=== PATIENT | male | born 1940 | race Caucasian/White ===

== ENCOUNTER 2017-09-30 19:19 | Inpatient (IN) | payer MEDICAID, MEDICARE ==
[2017-09-30] VITALS (14 sets, daily range): BP systolic 70–117; BP diastolic 32–59
[~2017-09-30] VITALS: Ht 172.7 cm; Wt 138.3 kg
[~2017-09-30 19:19] MED LIST: ALPR.5T; GBPN600T; MIRAPEX 0.5 MG; NEURONTIN; TRM50TRX; TRZ50T
[2017-09-30] MEDS ORDERED: NS IV 1000 ML 1,000 ML ONE ×2 (20:57→22:15)
[2017-09-30 21:36] LABS: ABG BASE EXCESS -7.9 MMOL/L (-2.5-2.5); ABG OXYGEN SATURATION 95 % (94-100); ABG PCO2 41 MMHG (35-45); ABG PO2 90 MMHG (79-93)
[2017-09-30 21:39] LABS: ABG PH 7.26 (7.37-7.43); ALLENS TEST POSITIVE; INSPIRED O2 40% BIPAP; PATIENT TEMP 98.5; VENTILATOR NO
[2017-09-30 21:54] LABS: BILIRUBIN,URINE NEGATIVE (NEGATIVE); CLARITY,URINE CLEAR; COLOR,URINE YELLOW; GLUCOSE, URINE (UA) NEGATIVE (NEGATIVE); KETONES,URINE NEGATIVE (NEGATIVE); LEUKOCYTE ESTERASE ,URINE NEGATIVE (NEGATIVE); NITRITE,URINE NEGATIVE (NEGATIVE); PH,URINE 5 (5-9); PROTEIN,URINE 2+ (NEGATIVE); UROBILINOGEN,URINE NORMAL (NORMAL)
[2017-09-30 22:06] LABS: AMORPHOUS SEDIMENT,UR MOD AMOR URATES /LPF; BACTERIA,URINE NEGATIVE /HPF; WBC,URINE RARE /HPF
[2017-09-30] MEDS ORDERED: NOREPINEPHRINE 4 MG/4 ML (LEVOPHED) AMP IV ONE (22:19)
[2017-09-30] MEDS ORDERED: NS (IVPB) 250 ML ONE (22:19)
[2017-09-30] MEDS ORDERED: NS IV 1000 ML 1,000 ML IV ONE ×2 (23:00→23:15)
[2017-09-30] MEDS ORDERED: NOREPINEPHRINE 4 MG/NS 250 ML DRIP IV SCH ×2 (23:00)
--- NOTE | 2017-09-30 23:17 | Operative Report ---
Operative Report Date of Procedure/Surgery Sep 30, 2017 Surgeon (s) ARVIN DOBSON MD [facility] Manager (s): N/A Post-Operative Diagnosis Pneumonia, sepsis and hypotension Procedure Performed Ultrasound localization of right internal jugular vein It central venous catheter placement Description of Procedure Estimated blood loss (mL): Minimal Specimen(s) collected/removed none Description of the Procedure indication for the procedure: This gentleman, a resident of the [facility], has been admitted with sepsis possibly secondary to pneumonic infiltrates and hypotension. To facilitate vasopressor therapy and invasive hemodynamic monitoring, I was asked to place a central venous catheter. Description of the procedure: He was placed in Trendelenburg position and the right side of his neck prepared and draped in the usual sterile manner. Internal jugular vein was localized using a 10 MHz ultrasound probe and a floppy guidewire introduced into the heart. Subcutaneous tract was gently dilated using a silastic sheath and a 16 cm long, 7.5 Macedonian central venous catheter advanced using Seldinger technique. All the channels were aspirated and flushed with heparinized saline. The catheter itself was secured using a silk suture and a sterile dressing applied. He tolerated the procedure reasonably well. Findings of the Procedure see operative report Allergies and Home Medications Allergies Coded Allergies: Latex (Verified Allergy, Unknown, 09/01/07) Home Medications Alprazolam 0.5 Mg Tablet, (Reported) Gabapentin 600 Mg Tablet, (Reported) Tramadol Hcl 50 Mg Tab, (Reported) Trazodone Hcl 50 Mg Tablet, (Reported) [Mirapex 0.5MG] , (Reported) [Neurontin] , (Reported) ARVIN DOBSON MD Sep 30, 2017 11:17 pm
[2017-09-30] MEDS: PIPERACILLIN SODIUM/TAZOBACTAM 4.5 GM in NS (IVPB) 100 ML IV SCH (23:52)
[2017-09-30 23:58] LABS: ABG BASE EXCESS -9.7 MMOL/L (-2.5-2.5); ABG OXYGEN SATURATION 97 % (94-100); ABG PCO2 48 MMHG (35-45); ABG PO2 162 MMHG (79-93); ABG TCO2 18.7 MMOL/L (21.0-31.0)
[2017-09-30 23:59] LABS: ALLENS TEST YES-POS; INSPIRED O2 65
[2017-10-01] VITALS (51 sets, daily range): BP systolic 77–136; BP diastolic 48–84
[2017-10-01] LABS: PATIENT TEMP 98.4; VENTILATOR NO
[2017-10-01 00:01] LABS: ABG PH 7.18 (7.37-7.43)
[2017-10-01] MEDS ORDERED: LORazepam INJ 2 MG/ML (ATIVAN) VIAL ONE (00:51)
[2017-10-01] MEDS ORDERED: NS IV 1000 ML 1,000 ML IV SCH (01:00)
[2017-10-01] MEDS ORDERED: LORazepam INJ 2 MG/ML (ATIVAN) VIAL IV PRN (01:15)
[2017-10-01] MEDS ORDERED: fentaNYL INJECTION 100 MCG/2 ML AMP IV PRN (01:15)
[2017-10-01 01:28] LABS: ABG BASE EXCESS -10.7 MMOL/L (-2.5-2.5); ABG OXYGEN SATURATION 94 % (94-100); ABG PCO2 35 MMHG (35-45); ABG PO2 80 MMHG (79-93); ABG TCO2 16.1 MMOL/L (21.0-31.0)
[2017-10-01 01:30] LABS: ALLENS TEST YES-POS; INSPIRED O2 60; PATIENT TEMP 98.3; VENTILATOR YES
[2017-10-01 01:32] LABS: ABG PH 7.26 (7.37-7.43)
[2017-10-01 01:46] LABS: BUN/CREATININE RATIO 16; CALCIUM 7.2 MG/DL (8.5-10.1); CARBON DIOXIDE 14 MMOL/L (21-32); CHLORIDE 105 MMOL/L (98-107); CREATININE SERUM 3.41 MG/DL (0.60-1.30); GFR ESTIMATED 18; GLUCOSE 202 MG/DL (70-105); POTASSIUM 3.2 MMOL/L (3.6-5.0); SODIUM 136 MMOL/L (135-145)
[2017-10-01] MEDS ORDERED: RX-OSELTAMIVIR 6 MG/ML (TAMIFLU) BOT PO ONE (02:32)
[2017-10-01] MEDS ORDERED: D5W 1000 ML IV SOLUTION 1,000 ML ONE (02:34)
[2017-10-01] MEDS ORDERED: SODIUM BICARB 8.4% 50 MEQ/50 ML (ABBOTT) SYR ONE (02:34)
[2017-10-01] MEDS: FAMOTIDINE 20MG/2ML IV (PEPCID) IV SCH ×2 (03:10→09:09)
[2017-10-01] MEDS: OSELTAMIVIR 6 MG/ML (TAMIFLU) 60 ML BOT GT SCH ×3 (03:11→20:26)
[2017-10-01] MEDS: SODIUM BICARBONATE 8.4% VIAL 150 MEQ in D5W 1000 ML IV SOLUTION 1,000 ML IV SCH ×5 (03:11→20:26)
[2017-10-01 04:46] LABS: ABG OXYGEN SATURATION 97 % (94-100); ABG PCO2 28 MMHG (35-45); ABG PO2 110 MMHG (79-93); ABG TCO2 15.5 MMOL/L (21.0-31.0)
[2017-10-01 04:47] LABS: ALLENS TEST YES-POS; INSPIRED O2 60%; PATIENT TEMP 98.9; VENTILATOR YES
[2017-10-01 04:48] LABS: ABG PH 7.33 (7.37-7.43)
[2017-10-01 04:59] LABS: BASOPHILS % (AUTO) 0 % (0-10); EOSINOPHILS % (AUTO) 0 % (0-10); HEMATOCRIT 25 % (40-54); HEMOGLOBIN 8.2 G/DL (13.3-17.7); LYMPHOCYTES # (AUTO) 2.4 X 10^3 (1.0-4.0); LYMPHOCYTES % (AUTO) 12 % (12-44); MEAN CORPUSCULAR HEMOGLOBIN 23 PG (25-34); MEAN CORPUSCULAR HGB CONC 33 G/DL (32-36); MEAN CORPUSCULAR VOLUME 72 FL (80-99); MEAN PLATELET VOLUME 9.5 FL (7.4-10.4); MONOCYTES # (AUTO) 0.9 X 10^3 (0.0-1.0); MONOCYTES % (AUTO) 4 % (0-12); NEUTROPHILS # (AUTO) 16.7 X 10^3 (1.8-7.8); NEUTROPHILS % (AUTO) 84 % (42-75); PLATELET COUNT 255 10^3/uL (130-400); RED BLOOD COUNT 3.51 10^6/uL (4.35-5.85); RED CELL DISTRIBUTION WIDTH 23.8 % (10.0-14.5); WHITE BLOOD COUNT 19.9 10^3/uL (4.3-11.0)
[2017-10-01 05:11] LABS: CALCIUM 7.1 MG/DL (8.5-10.1); CREATININE SERUM 3.28 MG/DL (0.60-1.30); MAGNESIUM 1.9 MG/DL (1.8-2.4); PHOSPHORUS 5.1 MG/DL (2.3-4.7); POTASSIUM 3.3 MMOL/L (3.6-5.0)
[2017-10-01 05:16] LABS: ANISOCYTOSIS MODERATE; BAND NEUTROPHILS 4 %; BASOPHILS % (MANUAL) 0 %; ELLIPT/OVALOCYTES SLIGHT; EOSINOPHILS % (MANUAL) 0 %; HYPOCHROMASIA MODERATE; LYMPHOCYTES % (MANUAL) 13 %; MICROCYTOSIS SLIGHT; MONOCYTES % (MANUAL) 5 %; NEUTROPHILS % (MANUAL) 78 %; POIKILOCYTOSIS SLIGHT; POLYCHROMASIA SLIGHT; TARGET CELLS SLIGHT
--- NOTE | 2017-10-01 05:42 | Pulmonary Consultation ---
History of Present Illness History of Present Illness Date of Consultation 10/01/17 05:37 Time Seen by Provider: 05:37 Date of Admission History of Present Illness 77yo morbidly obese patient from [facility] presented here from [place] ED and transferred here secondary to sepsis and respiratory distress. Upon ICU arrival pt had progressive respiratory failure and required intubation. Pt became hypotensive and is now requiring IV pressors. PT has received over [address] Ayala placed a central line. Pt is currently on a Bicarb gtt per EICU. I am consulted for ICU management. Allergies and Home Medications Allergies Coded Allergies: Latex (Verified Allergy, Unknown, 09/01/07) Home Medications Albuterol Sulfate 18 Gm Hfa.aer.ad, 2 PUFF INH Q4H PRN for SHORTNESS OF BREATH, (Reported) Aspirin 81 Mg Tablet.dr, 81 MG PO DAILY, (Reported) Atorvastatin Calcium 10 Mg Tablet, 10 MG PO 1700, (Reported) Azithromycin 250 Mg Tablet, 250 MG PO UD, #6 (Reported) TAKE 2 TABLETS ON DAY ONE THEN TAKE 1 TABLET DAILY FOR FOUR MORE DAYS END DATE 10-02-17 Fluticasone/Vilanterol 1 Each Blst.w.dev, 1 PUFF IH DAILY, (Reported) Gabapentin 600 Mg Tablet, 600 MG PO TID, (Reported) Guaifenesin/Dextromethorphan 5 Ml Syrup, 10 ML PO Q6H PRN for COUGH, (Reported) Insulin Determir 1,000 Units/10 Ml Soln, 24 UNITS SQ 2000, (Reported) Insulin Lispro 100 Unit/1 Ml Vial, 8 UNIT SQ TID, (Reported) Iron Polysaccharide Complex 150 Mg Capsule, 150 MG PO BID, (Reported) Lisinopril/Hydrochlorothiazide 1 Each Tablet, 1 TAB PO DAILY, (Reported) Metformin HCl 500 Mg Tablet, 500 MG PO BID, (Reported) Pramipexole Di-HCl 1 Mg Tablet, 1 MG PO 2000, (Reported) Tramadol HCl 50 Mg Tablet, 100 MG PO Q8H PRN for PAIN-MODERATE, (Reported) TAKES 2 (50MG) TABLETS Past Svvsimp-Ivffji-Cmgsly Hx Patient Social History Recent Foreign Travel: No Contact w/Someone Who Travel: No Recent Infectious Disease Expo: No Review of Systems Time Seen by Provider: 09:49 Exam Exam Vital Signs Date Time Temp Pulse Resp B/P (MAP) Pulse Ox O2 Delivery O2 Flow Rate FiO2 10/01/17 05:00 59 27 101/53 (69) 99 Mechanical Ventilator 60.00 10/01/17 04:45 65 28 95/57 (70) 99 Mechanical Ventilator 60.00 10/01/17 04:30 62 28 99/60 (73) 99 Mechanical Ventilator 60.00 10/01/17 04:15 69 27 121/64 (83) 97 Mechanical Ventilator 60.00 10/01/17 04:00 70 24 97 45 10/01/17 04:00 Mechanical Ventilator 60 10/01/17 04:00 79 28 124/65 (84) 97 Mechanical Ventilator 60.00 10/01/17 03:45 64 27 125/64 (84) 97 Mechanical Ventilator 60.00 10/01/17 03:30 75 28 123/61 (81) 97 Mechanical Ventilator 60.00 10/01/17 03:15 69 27 112/60 (77) 97 Mechanical Ventilator 60.00 10/01/17 03:00 75 22 113/59 (77) 96 Mechanical Ventilator 60.00 10/01/17 02:45 64 27 121/61 (81) 97 Mechanical Ventilator 60.00 10/01/17 02:30 71 28 115/59 (77) 96 Mechanical Ventilator 60.00 10/01/17 02:15 67 23 108/54 (72) 96 Mechanical Ventilator 60.00 10/01/17 02:00 83 24 109/50 (69) 96 Mechanical Ventilator 60.00 10/01/17 01:45 77 23 104/48 (66) 98 Mechanical Ventilator 60.00 10/01/17 01:40 70 24 98 45 10/01/17 01:30 16 77/56 (63) 81 Mechanical Ventilator 60.00 10/01/17 01:15 68 24 113/49 (70) 96 Mechanical Ventilator 60.00 10/01/17 01:00 66 10/01/17 01:00 66 24 114/49 (70) 96 Mechanical Ventilator 60.00 10/01/17 00:45 66 18 123/58 (79) 98 Mechanical Ventilator 60.00 10/01/17 00:38 70 24 100 45 10/01/17 00:30 70 101/53 (69) 97 Mechanical Ventilator 60.00 10/01/17 00:15 122/56 (78) 100 NIV Bilevel 65.00 10/01/17 00:00 75 114/54 (74) 100 NIV Bilevel 65.00 10/01/17 00:00 Mechanical Ventilator 60 09/30/17 23:45 74 92/48 (63) 100 NIV Bilevel 65.00 09/30/17 23:41 71 14 98 65.00 09/30/17 23:30 73 95/47 (63) 100 NIV Bilevel 65.00 09/30/17 23:15 76 102/46 (64) 100 NIV Bilevel 65.00 09/30/17 23:00 72 102/53 (69) 100 NIV Bilevel 65.00 09/30/17 22:45 65 117/59 (78) 100 09/30/17 22:30 81 92/53 (66) 100 09/30/17 22:15 86 15 94/49 (64) 100 09/30/17 22:00 79 76/44 (55) 96 09/30/17 21:45 76/41 (53) 100 09/30/17 21:30 77 71/40 (50) 100 09/30/17 21:15 76/32 (47) 96 09/30/17 21:00 88 21 97 40.00 09/30/17 21:00 70/47 (55) 99 09/30/17 20:45 99.3 93 18 70/47 (55) 95 Nasal Cannula 4.00 09/30/17 20:39 103 09/30/17 20:30 Nasal Cannula 4.00 I & O 10/01/17 07:00 Intake Total 2995 ml Output Total 450 ml Balance 2545 ml General Appearance: Anxious, Mild Distress Neck: Normal Inspection, Non Tender, Supple Respiratory: No Accessory Muscle Use, No Respiratory Distress, Decreased Breath Sounds Cardiovascular: Regular Rate, Rhythm, No Edema Gastrointestinal: normal bowel sounds, non tender, soft Extremity: Non Tender, No Pedal Edema Neurologic/Psychiatric: Alert, Oriented x3 Skin: Normal Color, Warm/Dry Results Lab Laboratory Tests 10/01/17 01:15 10/01/17 04:35 Assessment/Plan Assessment/Plan Severe sepsis with pneumonia and acute respiratory failure -Continue ventilator therapy -Andino cultures pending -Continue IVF -Continue Vanco, and Zosyn Influenza B -Continue Tamiflu Morbid obesity Acute kidney failure with metabolic acidosis -IVF and monitor -Pt is currently on a bicarb gtt 255 MISTY VASQUEZ DO Oct 01, 2017 05:42
[2017-10-01] MEDS ORDERED: PHARMACY TO DOSE IV SCH (05:45)
[2017-10-01] MEDS: POTASSIUM CL 10MEQ/50ML IVPB 50 ML IV SCH ×2 (05:59→06:23)
[2017-10-01] MEDS: KCL 20 MEQ TAB (K-DUR) PO SCH (05:59)
[2017-10-01] MEDS: MAGNESIUM 1 GM/100 ML IVPB 100 ML IV SCH (05:59)
[2017-10-01 06:15] LABS: BILIRUBIN,TOTAL 0.4 MG/DL (0.1-1.0)
[2017-10-01] MEDS: PIPERACILLIN SODIUM/TAZOBACTAM 4.5 GM in NS (IVPB) 100 ML IV SCH ×2 (06:23→17:35)
--- NOTE | 2017-10-01 06:36 | Diagnostic Imaging Report ---
CHEST 1 VIEW, AP/PA ONLY INDICATION: OG tube positioning. COMPARISON: Chest radiograph performed 10 minutes prior. FINDINGS: Support Devices: Enteric tube has been advanced and is coiled within the mid to proximal stomach. Stable ET tube and right IJ central venous catheter. Chest: Low lung volumes. Right basilar opacities are stable. Small bilateral pleural effusions remain greater on the right. No pneumothorax. Stable marked cardiomegaly. IMPRESSION: 1. OG tube has tip and sidehole in the proximal to mid stomach. 2. Small bilateral pleural effusions with associated basilar opacities that could relate to atelectasis. Dictated by: Dictated on workstation # [id number]
--- NOTE | 2017-10-01 06:45 | Diagnostic Imaging Report ---
INDICATION: OG placement Comparison: 10/01/2017 at 12:50 AM Time of exam: 10/01/2017 at 1:40 AM Findings: Upright portable view of the chest is obtained. Endotracheal tube is stable in position in the mid trachea. Orogastric tube tip now appears to be within the proximal stomach, similar in location to the prior exam. There is moderate coiling of the OG tube seen within the proximal esophagus however. Heart size is enlarged but unchanged. There is no central venous congestion. There is moderate coarse atelectasis and infiltrate at the right lung base with a probable right pleural effusion. The left lung appears fairly clear. Impression: 1. History is advancement of the OG tube. The distal tip of the OG tube is unchanged in position within the proximal stomach however there is some coiling of the OG tube within the proximal esophagus. 2. Endotracheal tube is stable in position. 3. Moderate atelectasis and airspace disease at the right lung base with probable small pleural effusion similar to the recent prior exam. 4. Cardiomegaly without evidence of failure. Dictated by: Dictated on workstation # [id number]
--- NOTE | 2017-10-01 06:47 | Diagnostic Imaging Report ---
CHEST 1 VIEW, AP/PA ONLY INDICATION: ET tube insertion. COMPARISON: 09/30/2017. FINDINGS: Support Devices: ET tube has tip 5 cm above the nghia. Enteric tube courses into the stomach and off the [id number]. Right IJ central venous catheter has tip in the mid SVC. Chest: Small bilateral pleural effusions are greater on the right. Bibasilar heterogeneous opacities are also greater on the right. No pneumothorax. Cardiomegaly is present. IMPRESSION: 1. Support devices are well positioned, as above. 2. Cardiomegaly with perihilar and basilar heterogeneous opacity and small pleural effusions is suggestive of congestive heart failure. Dictated by: Dictated on workstation # [id number]
[2017-10-01] MEDS ORDERED: VANCOMYCIN INJECTION 2,000 MG in NS IV 500 ML 500 ML IV NR (07:00)
--- NOTE | 2017-10-01 07:15 | Diagnostic Imaging Report ---
INDICATION: Hypoxemia. COMPARISON: 09/01/2007. FINDINGS: The cardiac silhouette is enlarged. Pulmonary vascular redistribution is noted. Right lower lobe heterogeneous consolidations are seen. No pleural effusion or pneumothorax. IMPRESSION: 1. Right lower lobe heterogeneous consolidations may be due to pneumonia or atelectasis. 2. Cardiomegaly with central vascular congestion. Dictated by: Dictated on workstation # [id number]
--- NOTE | 2017-10-01 07:39 | History & Physical-Hospitalist ---
HPI History of Present Illness: HPI/Chief Complaint Pt is a 77yoCM with a PMH of IDDMII, HTN, diastolic CHF, and asthma who presented to outside ER for decreased responsiveness and SOB. He is intubated and unable to provide history. I called his NH and his RN informed me that his symptoms started 4 days ago. He had a cough and wheezing and was started on a z- pack 3 days ago. Yesterday quickly worsened with altered mental status, SOB, and increased work of breathing. No fevers. Another member at facility has been sick with influenza recently. He is normally ambulatory, alert and oriented x4 per the facility report.He is a full code. Lighthouse Keeper in July was 1.15. Source: RN/MD, long-term records Exam Limitations: clinical condition Date Seen 10/01/17 Time Seen by Provider: 07:20 Attending Physician Jose Coyne MD PCP Self,Lloyd CAMARILLO Referring Physician Date of Admission Sep 30, 2017 at 20:40 Home Medications & Allergies Home Medications Reviewed patient Home Medication Reconciliation Form Allergies Allergies Coded Allergies Latex (Verified Allergy, Unknown, 09/01/07) Past Pdojzhr-Riojgw-Dxicvs Hx Patient Social History Marrital Status: Employed/Student: retired Smoking Status: Unknown if Ever Smoked Recent Foreign Travel: No Contact w/other who traveled: No Recent Infectious Disease Expo: No Respiratory Yes Asthma Cardiovascular Yes Hypertension Genitourinary No Gastrointestinal No Endocrine History of Endocrine Disorders: Yes Endocrine Disorders: Diabetes, Insulin dep Family Medical History Other Significan Family Hx: Unable to verify as patient intubated and NH does not have that on file Review of Systems ROS-Unable to Obtain: Intubated, unable to provide ROS Constitutional: see HPI Physical Exam Physical Exam Vital Signs Vital Sign - Last 12Hours 09/30/17 09/30/17 09/30/17 10/01/17 20:30 20:39 20:45 00:00 Temp 99.3 Pulse 103 Resp 18 B/P (MAP) 70/47 (55) Pulse Ox 95 O2 Delivery Nasal Cannula O2 Flow Rate 4.00 FiO2 60 Capillary Refill : General Appearance: Other (unresponsive, intubated) HEENT: PERRL/EOMI, Other (OG in place) Neck: No JVD, No Thyromegaly Respiratory: Lungs Clear, Other (intubated) Cardiovascular: Regular Rate, Rhythm, No Murmur Gastrointestinal: Normal Bowel Sounds, Soft Extremity: No Calf Tenderness, Pedal Edema Neurologic/Psychiatric: Other (unresponsive on no sedation) Skin: Normal Color, Warm/Dry Results Results/Procedures Lab Laboratory Tests 10/01/17 01:15 10/01/17 04:35 Assessment/Plan Admission Diagnosis Septic Shock Diagnosis/Problems Diagnosis/Problems (1) Septic shock Status: Acute Assessment & Plan: 2/4 SIRS Pna as source Influenza B + Received 3L bolus at outside facility Started Levophed here for refractory hypotension, remains on it currently Lactic acid at OSH 3.1 now 0.79 Blood cultures and urine cultures done at OSH, await results Continue on Vanc/Zosyn and Tamiflu (2) Acute respiratory failure Status: Acute Assessment & Plan: Intubated Pulm consulted, appreciate recs MAT protocol Qualifiers: Qualified Codes: J96.02 - Acute respiratory failure with hypercapnia (3) CARIE (acute kidney injury) Assessment & Plan: Lighthouse Keeper from ebr 1.15 Now 3.28 Continue bicarb gtt Monitor I/Os (4) High anion gap metabolic acidosis Assessment & Plan: Gap 18 Likely accounted from with creatinine On bicarb gtt (5) Insulin dependent diabetes mellitus Assessment & Plan: ON Levemir 24 and Novolog 18 as outpatient On Sliding scale currently Trend (6) Essential (primary) hypertension Assessment & Plan: Currently hypotensive on levophed (7) Hypokalemia Assessment & Plan: On replacement protocol (8) Microcytic anemia Assessment & Plan: Chronic, Hgb from July was 8.4 Trend (9) Influenza B Assessment & Plan: Continue Tamiflu SARAH REINA MD Oct 01, 2017 07:39
[2017-10-01] MEDS ORDERED: INSU100V SQ (08:42)
[2017-10-01] MEDS ORDERED: LISI1TAB8 PO (08:42)
[2017-10-01] MEDS ORDERED: TRAM50TA2 PO (08:42)
[2017-10-01] MEDS ORDERED: GABA600T2 PO (08:42)
[2017-10-01] MEDS ORDERED: FLUT1AER IH (08:42)
[2017-10-01] MEDS ORDERED: ASPI-983 PO (08:42)
[2017-10-01] MEDS ORDERED: AZIT250T12 PO (08:42)
[2017-10-01] MEDS ORDERED: PRAM1TAB5 PO (08:42)
[2017-10-01] MEDS ORDERED: METF500T4 PO (08:42)
[2017-10-01] MEDS ORDERED: GUAI5SYR PO (08:42)
[2017-10-01] MEDS ORDERED: IRON150C8 PO (08:42)
[2017-10-01] MEDS ORDERED: INSU100V5 SQ (08:42)
[2017-10-01] MEDS ORDERED: ALBU18HF2 INH (08:42)
[2017-10-01] MEDS ORDERED: ATOR10TA66 PO (08:42)
[2017-10-01] MEDS ORDERED: DEXMEDETOMIDINE INJECTION 200 MCG in NS (IVPB) 50 ML IV SCH (08:45)
[2017-10-01] MEDS ORDERED: NS (IVPB) 50 ML ONE (08:48)
[2017-10-01] MEDS: CHLORHEXIDINE 0.12% SOLN 15 ML (PERIDEX) UDC PO SCH ×2 (09:09→20:26)
--- NOTE | 2017-10-01 09:53 | Physical Therapy Progress Note ---
Therapy Progress Note Patient is currently on ventilator and has just become alert. RN request hold for this date and to attempt in a.m. Hold KELSEY NICHOLSON PT Oct 01, 2017 09:53
[2017-10-01] MEDS: DEXMEDETOMIDINE INJECTION 400 MCG in NS (IVPB) 100 ML IV SCH ×3 (09:55→23:44)
[2017-10-01] MEDS: inSUlin (REGULAR) HUMAN 1 UNIT/0.01 ML (CHARGE PER UNIT) SC SCH ×3 (12:43→23:50)
--- NOTE | 2017-10-01 12:59 | Occ Therapy Progress Note ---
Therapy Progress Note OT order received. Chart reviewed. Pt. on ventilator at this time. Will hold therapy and check tomorrow to evaluation pt. Thank you for the consult. 1300 GILBERTO NICOLE OT Oct 01, 2017 12:59
[2017-10-02] VITALS (34 sets, daily range): BP systolic 97–150; BP diastolic 60–89
[2017-10-02] MEDS: SODIUM BICARBONATE 8.4% VIAL 150 MEQ in D5W 1000 ML IV SOLUTION 1,000 ML IV SCH (04:14)
[2017-10-02 04:29] LABS: ABG BASE EXCESS 1.1 MMOL/L (-2.5-2.5); ABG OXYGEN SATURATION 89 % (94-100); ABG PCO2 27 MMHG (35-45); ABG PH 7.55 (7.37-7.43); ABG PO2 51 MMHG (79-93); ABG TCO2 24.5 MMOL/L (21.0-31.0); ALLENS TEST YES-POS; INSPIRED O2 25%; PATIENT TEMP 96.7; VENTILATOR YES
[2017-10-02 04:39] LABS: BASOPHILS % (AUTO) 0 % (0-10); EOSINOPHILS % (AUTO) 0 % (0-10); HEMATOCRIT 28 % (40-54); HEMOGLOBIN 9.3 G/DL (13.3-17.7); LYMPHOCYTES # (AUTO) 1.7 X 10^3 (1.0-4.0); LYMPHOCYTES % (AUTO) 14 % (12-44); MEAN CORPUSCULAR HEMOGLOBIN 23 PG (25-34); MEAN CORPUSCULAR HGB CONC 34 G/DL (32-36); MEAN CORPUSCULAR VOLUME 69 FL (80-99); MEAN PLATELET VOLUME 9.1 FL (7.4-10.4); MONOCYTES # (AUTO) 0.4 X 10^3 (0.0-1.0); MONOCYTES % (AUTO) 3 % (0-12); NEUTROPHILS # (AUTO) 10.6 X 10^3 (1.8-7.8); NEUTROPHILS % (AUTO) 83 % (42-75); PLATELET COUNT 283 10^3/uL (130-400); WHITE BLOOD COUNT 12.9 10^3/uL (4.3-11.0)
[2017-10-02 05:10] LABS: CALCIUM 7.8 MG/DL (8.5-10.1); CREATININE SERUM 2.97 MG/DL (0.60-1.30); MAGNESIUM 1.7 MG/DL (1.8-2.4); PHOSPHORUS 3.4 MG/DL (2.3-4.7); POTASSIUM 3.5 MMOL/L (3.6-5.0)
[2017-10-02] MEDS: PIPERACILLIN SODIUM/TAZOBACTAM 4.5 GM in NS (IVPB) 100 ML IV SCH ×2 (05:28→18:46)
[2017-10-02] MEDS: KCL 20 MEQ TAB (K-DUR) PO SCH (05:53)
[2017-10-02] MEDS: inSUlin (REGULAR) HUMAN 1 UNIT/0.01 ML (CHARGE PER UNIT) SC SCH ×3 (06:07→18:50)
[2017-10-02] MEDS: POTASSIUM CL 10MEQ/50ML IVPB 50 ML IV SCH ×5 (06:14→09:19)
[2017-10-02] MEDS: MAGNESIUM 1 GM/100 ML IVPB 100 ML IV SCH ×3 (06:14→08:16)
--- NOTE | 2017-10-02 06:16 | Pulmonary Progress Note ---
Subjective Time Seen by Provider: 06:15 Subjective/Events-last exam PT is doing better. PT is lethargic however RN states pt does wake up and follow commands. Exam Exam Vital Signs Date Time Temp Pulse Resp B/P (MAP) Pulse Ox O2 Delivery O2 Flow Rate FiO2 10/02/17 05:33 55 16 92 40 10/02/17 04:27 55 27 92 25 10/02/17 04:00 53 23 150/83 (105) 91 Mechanical Ventilator 25.00 10/02/17 03:00 54 23 139/85 (103) 91 Mechanical Ventilator 25.00 10/02/17 02:03 54 24 92 25 10/02/17 02:00 55 24 138/88 (105) 91 Mechanical Ventilator 25.00 10/02/17 01:00 56 19 116/76 (89) 92 Mechanical Ventilator 25.00 10/02/17 01:00 55 10/02/17 00:00 Mechanical Ventilator 25 10/02/17 00:00 98.3 56 24 122/89 (100) 92 Mechanical Ventilator 25.00 10/01/17 23:52 58 24 92 25 10/01/17 23:00 56 23 136/76 (96) 91 Mechanical Ventilator 21.00 10/01/17 22:00 55 23 125/74 (91) 91 Mechanical Ventilator 21.00 10/01/17 21:00 55 23 114/66 (82) 94 Mechanical Ventilator 21.00 10/01/17 20:00 96.2 55 13 121/71 (88) 93 Mechanical Ventilator 21.00 10/01/17 20:00 Mechanical Ventilator 21 10/01/17 19:12 56 24 93 21 10/01/17 19:00 56 10/01/17 19:00 55 12 121/73 (89) 92 Mechanical Ventilator 21.00 10/01/17 18:00 55 19 126/70 (88) 93 Mechanical Ventilator 21.00 10/01/17 17:43 98.4 10/01/17 17:00 55 13 116/67 (83) 94 Mechanical Ventilator 21.00 10/01/17 16:31 55 24 94 21 10/01/17 16:15 97.1 10/01/17 16:10 Mechanical Ventilator 21 10/01/17 16:00 55 13 123/84 (97) 94 Mechanical Ventilator 21.00 10/01/17 15:00 60 19 100/68 (79) 94 Mechanical Ventilator 21.00 10/01/17 14:38 56 24 94 21 10/01/17 14:00 60 23 115/70 (85) 93 Mechanical Ventilator 21.00 10/01/17 13:00 55 24 113/70 (84) 93 Mechanical Ventilator 21.00 10/01/17 13:00 55 10/01/17 12:19 56 24 94 21 10/01/17 12:00 Mechanical Ventilator 21 10/01/17 12:00 55 15 134/74 (94) 94 Mechanical Ventilator 21.00 10/01/17 11:45 96.9 10/01/17 11:00 54 23 132/72 (92) 95 Mechanical Ventilator 21.00 10/01/17 10:23 55 24 94 21 10/01/17 10:00 55 23 110/62 (78) 94 Mechanical Ventilator 21.00 10/01/17 09:00 66 24 97/62 (74) 93 Mechanical Ventilator 21.00 10/01/17 08:40 67 24 96 21 10/01/17 08:00 60 24 122/64 (83) 94 Mechanical Ventilator 25.00 10/01/17 08:00 Mechanical Ventilator 25 10/01/17 07:50 96.8 10/01/17 07:00 56 24 98/53 (68) 95 Mechanical Ventilator 25.00 10/01/17 07:00 56 10/01/17 06:25 56 24 97 25 I & O 10/02/17 07:00 Intake Total 3816 ml Output Total 2625 ml Balance 1191 ml General Appearance: No Apparent Distress HEENT: PERRL/EOMI, Other (OG in place) Neck: No JVD, No Thyromegaly Respiratory: Lungs Clear, Other (intubated) Cardiovascular: Regular Rate, Rhythm, No Murmur Gastrointestinal: normal bowel sounds, non tender, soft Extremity: No Calf Tenderness, Pedal Edema Neurologic/Psychiatric: Depressed Affect Skin: Normal Color, Warm/Dry Results Lab Laboratory Tests 10/01/17 01:15 10/01/17 04:35 10/02/17 04:29 Assessment/Plan Assessment/Plan Severe sepsis with pneumonia and acute respiratory failure -Continue ventilator therapy-- decrease PEEP to 5 -ABG reviewed and vent already adjusted per EICU. Repeat ABG is pending -Andino cultures pending -Continue IVF -Continue Vanco, and Zosyn Influenza B -Continue Tamiflu Morbid obesity Acute kidney failure with metabolic acidosis -IVF - change IVF to NS at 50 -D/C Bicarb gtt 233 MISTY VASQUEZ DO Oct 02, 2017 06:16
[2017-10-02] MEDS: NS IV 1000 ML 1,000 ML IV SCH (06:50)
[2017-10-02] MEDS ORDERED: VANCOMYCIN 1500 MG/NS 500 ML IVPB IV SCH ×2 (07:00)
[2017-10-02 07:30] LABS: ABG BASE EXCESS 2.2 MMOL/L (-2.5-2.5); ABG OXYGEN SATURATION 96 % (94-100); ABG PCO2 35 MMHG (35-45); ABG PH 7.48 (7.37-7.43); ABG PO2 79 MMHG (79-93); ABG TCO2 27.2 MMOL/L (21.0-31.0); ALLENS TEST YES-POS; INSPIRED O2 40%; PATIENT TEMP 94.7; VENTILATOR YES
[2017-10-02] MEDS: DEXMEDETOMIDINE INJECTION 400 MCG in NS (IVPB) 100 ML IV SCH ×4 (07:32→22:17)
--- NOTE | 2017-10-02 07:37 | Progress Note-Hospitalist ---
Subjective HPI/CC On Admission Date Seen by Provider: Oct 02, 2017 Time Seen by Provider: 07:20 Pt is a 77yoCM with a PMH of IDDMII, HTN, diastolic CHF, and asthma who presented to outside ER for decreased responsiveness and SOB. He is intubated and unable to provide history. I called his NH and his RN informed me that his symptoms started 4 days ago. He had a cough and wheezing and was started on a z- pack 3 days ago. Yesterday quickly worsened with altered mental status, SOB, and increased work of breathing. No fevers. Another member at facility has been sick with influenza recently. He is normally ambulatory, alert and oriented x4 per the facility report.He is a full code. Hosiery Pairer in July was 1.15. Subjective/Events-last exam Intubated. unable to provide ROS. More alert today. Does open eyes spontaneously and followed some commands. I called son and left message yesterday but did not return call. Unable to update family on condition. Objective Exam Vital Signs Vital Sign - Last 12Hours 09/30/17 09/30/17 09/30/17 10/01/17 20:30 20:39 20:45 00:00 Temp 99.3 Pulse 103 Resp 18 B/P (MAP) 70/47 (55) Pulse Ox 95 O2 Delivery Nasal Cannula O2 Flow Rate 4.00 FiO2 60 Capillary Refill : General Appearance: WD/WN, Other (intubated) Cardiovascular: No Murmur, Bradycardia Gastrointestinal: Normal Bowel Sounds, Non Tender, Soft Genital/Rectal: Other (smalls in with straw colored urine) Extremity: Normal Capillary Refill, No Pedal Edema Neurologic/Psychiatric: Alert, Other (follows simple commands) Results/Procedures Lab Laboratory Tests 10/02/17 04:29 Assessment/Plan Assessment and Plan Assess & Plan/Chief Complaint Septic Shock Diagnosis/Problems Diagnosis/Problems (1) Septic shock Status: Acute Assessment & Plan: PNA Influenza B + Titrate off Levophed Blood cultures and urine cultures done at OSH, await results Continue on Vanc/Zosyn and Tamiflu (2) Acute respiratory failure Status: Acute Assessment & Plan: Intubated Pulm consulted, appreciate recs MAT protocol Qualifiers: Qualified Codes: J96.02 - Acute respiratory failure with hypercapnia (3) CARIE (acute kidney injury) Assessment & Plan: Hosiery Pairer from [place] 1.15 Now 2.97, improving Monitor I/Os Continue IVF CrCl 44 (4) Influenza B Status: Acute Assessment & Plan: Continue Tamiflu (5) High anion gap metabolic acidosis Status: Resolved Assessment & Plan: No longer acidotic Off bicarb gtt (6) Insulin dependent diabetes mellitus Assessment & Plan: ON Levemir 24 and Novolog 18 as outpatient On Sliding scale currently Trend, fasting BS 185 this AM (7) Essential (primary) hypertension Assessment & Plan: Holding for low/normotensive BPs (8) Hypokalemia Assessment & Plan: On replacement protocol (9) Microcytic anemia Assessment & Plan: Chronic, Hgb from July was 8.4 Trend , improved this AM (10) Hypomagnesemia Status: Acute Assessment & Plan: On replacement protocol (11) Prophylactic measure Assessment & Plan: NS at 50ml/hr Heparin for DVT ppx NPO day 2 Famotidine for GI ppx SARAH REINA MD Oct 02, 2017 7:37 am
[2017-10-02] MEDS: CHLORHEXIDINE 0.12% SOLN 15 ML (PERIDEX) UDC PO SCH ×2 (08:48→22:10)
[2017-10-02] MEDS: OSELTAMIVIR 6 MG/ML (TAMIFLU) 60 ML BOT GT SCH ×2 (08:49→22:10)
[2017-10-02] MEDS: FAMOTIDINE 20MG/2ML IV (PEPCID) IV SCH (08:49)
--- NOTE | 2017-10-02 09:14 | Diagnostic Imaging Report ---
EXAMINATION: Portable semierect AP chest at 0445 hours. INDICATION: Respiratory distress. FINDINGS: The cardiomegaly, right lower lobe pneumonia/atelectasis, and right pleural effusion seen on the prior exam of 10/01/2017 are again evident and essentially no different. There is still a small amount of atelectasis/infiltrate and fluid in the left lung base as well. The upper lungs remain clear. The mediastinum is not widened. The osseous structures are intact. The supportive tubes and lines seen on the prior study are unchanged in position. IMPRESSION: Stable chest. There has been no significant change since the prior exam. A followup study would be recommended for continued evaluation. Dictated by: Dictated on workstation # [id number]
--- NOTE | 2017-10-02 09:24 | Physical Therapy Progress Note ---
Therapy Progress Note Pt remains on ventilator. No treatment rendered at this time. Nursing notified. DIO PERKINS PT Oct 02, 2017 09:24
--- NOTE | 2017-10-02 10:38 | Occ Therapy Progress Note ---
Therapy Progress Note Pt. on ventilator at this time. Will continue to monitor and treat pt. when off vent. 1040 GILBERTO NICOLE OT Oct 02, 2017 10:38
[2017-10-02] MEDS: morphine INJ 4 MG/ML 1 ML (VIAL/SYRINGE) IVP PRN ×2 (14:05→21:23)
[2017-10-03] VITALS (26 sets, daily range): BP systolic 95–182; BP diastolic 51–102
[2017-10-03] MEDS: inSUlin (REGULAR) HUMAN 1 UNIT/0.01 ML (CHARGE PER UNIT) SC SCH ×4 (00:29→17:03)
[2017-10-03] MEDS: DEXMEDETOMIDINE INJECTION 400 MCG in NS (IVPB) 100 ML IV SCH (00:30)
[2017-10-03] MEDS: NS IV 1000 ML 1,000 ML IV SCH (03:48)
[2017-10-03 04:01] LABS: ABG BASE EXCESS 0.8 MMOL/L (-2.5-2.5); ABG OXYGEN SATURATION 95 % (94-100); ABG PCO2 38 MMHG (35-45); ABG PH 7.43 (7.37-7.43); ABG PO2 79 MMHG (79-93); ALLENS TEST YES-POS; INSPIRED O2 40% FIO2; VENTILATOR YES
[2017-10-03 04:02] LABS: PATIENT TEMP 97.8
[2017-10-03 04:16] LABS: BASOPHILS % (AUTO) 0 % (0-10); EOSINOPHILS # (AUTO) 0.1 10^3/uL (0.0-0.3); EOSINOPHILS % (AUTO) 1 % (0-10); HEMATOCRIT 28 % (40-54); HEMOGLOBIN 9.2 G/DL (13.3-17.7); LYMPHOCYTES # (AUTO) 1.6 X 10^3 (1.0-4.0); LYMPHOCYTES % (AUTO) 15 % (12-44); MEAN CORPUSCULAR HEMOGLOBIN 23 PG (25-34); MEAN CORPUSCULAR HGB CONC 33 G/DL (32-36); MEAN CORPUSCULAR VOLUME 71 FL (80-99); MEAN PLATELET VOLUME 9.4 FL (7.4-10.4); MONOCYTES # (AUTO) 0.4 X 10^3 (0.0-1.0); MONOCYTES % (AUTO) 4 % (0-12); NEUTROPHILS # (AUTO) 8.6 X 10^3 (1.8-7.8); NEUTROPHILS % (AUTO) 80 % (42-75); PLATELET COUNT 280 10^3/uL (130-400); RED BLOOD COUNT 3.96 10^6/uL (4.35-5.85); RED CELL DISTRIBUTION WIDTH 23.4 % (10.0-14.5); WHITE BLOOD COUNT 10.7 10^3/uL (4.3-11.0)
[2017-10-03 04:36] LABS: CALCIUM 7.8 MG/DL (8.5-10.1); CREATININE SERUM 2.39 MG/DL (0.60-1.30); MAGNESIUM 2.3 MG/DL (1.8-2.4); POTASSIUM 3.8 MMOL/L (3.6-5.0)
[2017-10-03] MEDS: MAGNESIUM 1 GM/100 ML IVPB 100 ML IV SCH (04:46)
[2017-10-03] MEDS: POTASSIUM CL 10MEQ/50ML IVPB 50 ML IV SCH (04:46)
[2017-10-03] MEDS: KCL 20 MEQ TAB (K-DUR) PO SCH (04:47)
[2017-10-03] MEDS ORDERED: TROUGH ORDER-PHARMACY XX NR (06:00)
[2017-10-03] MEDS: PIPERACILLIN SODIUM/TAZOBACTAM 4.5 GM in NS (IVPB) 100 ML IV SCH (06:02)
--- NOTE | 2017-10-03 06:08 | Pulmonary Progress Note ---
Subjective Time Seen by Provider: 06:08 Subjective/Events-last exam Pt is doing better and is more awake. Exam Exam Vital Signs Date Time Temp Pulse Resp B/P (MAP) Pulse Ox O2 Delivery O2 Flow Rate FiO2 10/03/17 04:00 97.8 51 24 141/68 (92) 96 Mechanical Ventilator 40.00 10/03/17 04:00 Mechanical Ventilator 40 10/03/17 03:56 51 25 96 40 10/03/17 03:41 47 16 97 40 10/03/17 03:00 48 17 131/62 (85) 97 Mechanical Ventilator 40.00 10/03/17 02:33 47 16 97 40 10/03/17 02:00 47 15 136/74 (94) 97 Mechanical Ventilator 40.00 10/03/17 01:00 46 15 138/69 (92) 97 Mechanical Ventilator 40.00 10/03/17 01:00 47 10/03/17 00:10 48 16 98 40 10/03/17 00:00 98.1 47 15 138/76 (96) 97 Mechanical Ventilator 40.00 10/02/17 23:35 Mechanical Ventilator 40 10/02/17 23:00 49 16 143/74 (97) 97 Mechanical Ventilator 40.00 10/02/17 22:00 49 16 135/69 (91) 96 Mechanical Ventilator 40.00 10/02/17 21:33 52 16 98 40 10/02/17 21:00 50 15 138/64 (88) 95 Mechanical Ventilator 40.00 10/02/17 20:00 Mechanical Ventilator 40 10/02/17 20:00 49 15 130/70 (90) 95 Mechanical Ventilator 40.00 10/02/17 19:30 97.9 10/02/17 19:02 49 16 95 40 10/02/17 19:00 50 15 136/67 (90) 95 Mechanical Ventilator 40.00 10/02/17 19:00 47 10/02/17 18:00 58 15 132/73 (92) 96 Mechanical Ventilator 40.00 10/02/17 17:00 48 16 134/67 (89) 95 Mechanical Ventilator 40.00 10/02/17 16:00 49 16 135/68 (90) 96 Mechanical Ventilator 40.00 10/02/17 15:55 97.5 10/02/17 15:50 Mechanical Ventilator 40 1/10/18 15:00 47 16 129/64 (85) 97 Mechanical Ventilator 40.00 10/02/17 14:00 51 19 111/77 (88) 99 Mechanical Ventilator 40.00 10/02/17 13:53 52 17 98 40 10/02/17 13:00 48 15 128/70 (89) 96 Mechanical Ventilator 40.00 10/02/17 13:00 48 10/02/17 12:55 47 16 95 40 10/02/17 12:00 48 15 129/72 (91) 97 Mechanical Ventilator 40.00 10/02/17 11:50 Mechanical Ventilator 40 10/02/17 11:35 97.3 10/02/17 11:00 47 16 132/73 (92) 98 Mechanical Ventilator 40.00 10/02/17 10:13 47 19 96 40 10/02/17 10:00 47 15 122/69 (86) 96 Mechanical Ventilator 40.00 10/02/17 09:08 47 19 96 40 10/02/17 09:00 48 16 110/61 (77) 95 Mechanical Ventilator 40.00 10/02/17 08:48 96.1 10/02/17 08:30 Mechanical Ventilator 40 10/02/17 08:00 48 17 118/65 (82) 95 Mechanical Ventilator 40.00 10/02/17 07:00 49 10/02/17 07:00 51 15 126/66 (86) 97 Mechanical Ventilator 40.00 10/02/17 06:13 55 18 98 40 I & O 10/03/17 07:00 Intake Total 2700 ml Output Total 3050 ml Balance -350 ml General Appearance: WD/WN, Other (intubated) HEENT: PERRL/EOMI, Other (OG in place) Neck: No JVD, No Thyromegaly Respiratory: Lungs Clear, Other (intubated) Cardiovascular: No Murmur, Bradycardia Gastrointestinal: normal bowel sounds, non tender, soft Extremity: Normal Capillary Refill, No Pedal Edema Neurologic/Psychiatric: Alert, Other (follows simple commands) Skin: Normal Color, Warm/Dry Results Lab Laboratory Tests 10/02/17 04:29 10/03/17 04:05 Assessment/Plan Assessment/Plan Severe sepsis with pneumonia and acute respiratory failure -Change vent to 15/5 spont mode -check ABG in 30 min then probable extubation -Andino cultures pending Hypernatremia, Hyperchloremia -Continue IVF change to 1/2 NS at 50 -D/C Vanco, and Continue Zosyn for 7days total Influenza B -Continue Tamiflu x 5 days Morbid obesity Acute kidney failure with metabolic acidosis -IVF - change IVF to NS at 50 -D/C Bicarb gtt 233 MISTY VASQUEZ DO Oct 03, 2017 06:08
[2017-10-03] MEDS: 1/2 NS IV SOLUTION 1,000 ML IV SCH (06:15)
[2017-10-03 06:55] LABS: ABG BASE EXCESS 0.8 MMOL/L (-2.5-2.5); ABG OXYGEN SATURATION 94 % (94-100); ABG PCO2 42 MMHG (35-45); ABG PO2 76 MMHG (79-93); ABG TCO2 26.3 MMOL/L (21.0-31.0)
[2017-10-03 06:56] LABS: ALLENS TEST YES-POS; INSPIRED O2 CPAP 15/5; PATIENT TEMP 98.7; VENTILATOR NO
--- NOTE | 2017-10-03 07:19 | Progress Note-Hospitalist ---
Subjective HPI/CC On Admission Date Seen by Provider: Oct 03, 2017 Time Seen by Provider: 07:10 Pt is a 77yoCM with a PMH of IDDMII, HTN, diastolic CHF, and asthma who presented to outside ER for decreased responsiveness and SOB. He is intubated and unable to provide history. I called his NH and his RN informed me that his symptoms started 4 days ago. He had a cough and wheezing and was started on a z- pack 3 days ago. Yesterday quickly worsened with altered mental status, SOB, and increased work of breathing. No fevers. Another member at facility has been sick with influenza recently. He is normally ambulatory, alert and oriented x4 per the facility report.He is a full code. Corrugator Helper in July was 1.15. Subjective/Events-last exam Pt intubated but alert. Trying to speech. Plan to extubate later today. Objective Exam Vital Signs Vital Sign - Last 12Hours 09/30/17 09/30/17 09/30/17 10/01/17 20:30 20:39 20:45 00:00 Temp 99.3 Pulse 103 Resp 18 B/P (MAP) 70/47 (55) Pulse Ox 95 O2 Delivery Nasal Cannula O2 Flow Rate 4.00 FiO2 60 Capillary Refill : General Appearance: Other (intubated, alert) Respiratory: Lungs Clear Cardiovascular: Regular Rate, Rhythm, No Murmur Gastrointestinal: Normal Bowel Sounds, Non Tender, Soft Extremity: Non Tender, No Calf Tenderness, Pedal Edema Neurologic/Psychiatric: Alert, Oriented x3 Results/Procedures Lab Laboratory Tests 10/03/17 04:05 Assessment/Plan Assessment and Plan Assess & Plan/Chief Complaint Septic Shock Diagnosis/Problems Diagnosis/Problems (1) Septic shock Status: Resolved Assessment & Plan: PNA Influenza B + Titrate off Levophed Blood cultures and urine cultures done at OSH, await results have not been faxed yet Will request Continue on Zosyn and Tamiflu Vanc DC-ed (2) Acute respiratory failure Status: Acute Assessment & Plan: Intubated- plan to extubate today Pulm consulted, appreciate recs MAT protocol Qualifiers: Qualified Codes: J96.02 - Acute respiratory failure with hypercapnia (3) CARIE (acute kidney injury) Assessment & Plan: Corrugator Helper from ebr 1.15 Now 2.39, improving Monitor I/Os Continue IVF (4) Influenza B Status: Acute Assessment & Plan: Continue Tamiflu (5) High anion gap metabolic acidosis Status: Resolved Assessment & Plan: No longer acidotic Off bicarb gtt (6) Insulin dependent diabetes mellitus Assessment & Plan: On Levemir 24 and Novolog 18 as outpatient On Sliding scale currently Trend, fasting BS 185 this AM (7) Essential (primary) hypertension Assessment & Plan: Holding for low/normotensive BPs (8) Hypokalemia Assessment & Plan: On replacement protocol (9) Microcytic anemia Assessment & Plan: Chronic, Hgb from July was 8.4 Trend , stable this AM (10) Hypomagnesemia Status: Acute Assessment & Plan: On replacement protocol (11) Prophylactic measure Assessment & Plan: NS at 50ml/hr Heparin for DVT ppx NPO day 3 Famotidine for GI ppx SARAH REINA MD Oct 03, 2017 7:19 am
--- NOTE | 2017-10-03 09:17 | Physical Therapy Evaluation ---
PT Evaluation-General Medical Diagnosis Admission Date Sep 30, 2017 at 20:40 Medical Diagnosis: Influenza B/sepsis Onset Date: Sep 30, 2017 Therapy Diagnosis Therapy Diagnosis: generalized weakness/debility Height/Weight Height (Feet): 5 Height (Inches): 8.00 Weight (Pounds): 321 Weight (Ounces): 2.0 Precautions Precautions/Isolations: Droplet Isolation, Fall Prevention, Standard Precautions Weight Bear Status Right Lower Extremity: Right Weight Bearing/Tolerated Left Lower Extremity: Left Weight Bearing/Tolerated Referral Physician: Sugey Reason for Referral: Evaluation/Treatment Medical History Pertinent Medical History: DM, Heart Failure, HTN Additional Medical History extubated and on 5L O2 HF NC/ morbidly obese Current History ER secondary to unresponsive and increase SOB, AMS at [place] Reviewed History: Yes Social History Home: [facility] Prior/Core FIM Prior Level of Function Functional [place] Measure 0=Not Assessed/NA 4=Minimal Assistance 1=Total Assistance 5=Supervision or Setup 2=Maximal Assistance 6=Modified [place] 3=Moderate Assistance 7=Complete [place] Bed Mobility: 5 Transfers (B,C,W/C) (FIM): 5 Gait: 5 PT Evaluation-Current Subjective Patient is very CABAZON and agrees to PT. He reports, "I not good." Pain Numeric Pain Scale: 0-No Pain Location: No Pain Reported Objective Patient Orientation: Person Problem Solving: Fair Attachments: Oxygen, Khan Catheter, IV ROM/Strength ROM Lower Extremities bilateral LE WNL Strength Lower Extremities right knee flexion/extension 3/5; hip flexion NT: DF/PF 3/5 left knee flexion/extension 3/5; hip flexion NT; DF/PF 3/5 Integumentary/Posture Integumentary refer to nursing notes Bladder Incontinence: Khan Cath Posture severe trunk flexed posture in stand Neuromuscular (Tone, Coordination, Reflexes) diminished coordination due to inactivity Sensory Vision: Functional Hearing: Impaired Sensation Right Lower Extremit: Impaired Sensation Left Lower Extremity: Impaired Transfers Functional [place] Measure 0=Not Assessed/NA 4=Minimal Assistance 1=Total Assistance 5=Supervision or Setup 2=Maximal Assistance 6=Modified [place] 3=Moderate Assistance 7=Complete [place] Transfers (B, C, W/C) (FIM): 1 Scootin Supine to/from Sit: 1 Sit to/from Stand: 1 bed t/f WC(FIM only if WC use): 1 dependent assist x 2 with all mobility Balance Sitting Static: Fair Sitting Dynamic: Fair Standing Static: Poor Standing Dynamic: Poor Assessment/Needs 77 y.o. male, will benefit from skilled PT to address functional strength and mobility to improve current LOF and to safely return to [place] for continued care when medically stable. Rehab Potential: Fair Post Rehab Potential-Barriers: morbid obesity/inactivity PT Phone Banker Goals Intermediate Goals PT Intermediate Goals Time Frame: Oct 18, 2017 Transfers (B,C,W/C) (FIM): 4 Gait (FIM): 1 Gait distance (FIM): 1=up to 49 ft Distance: 25' Gait Level of Assist: 4 Gait Assistive Device: FWW PT Plan Problem List Problem List: Activity Tolerance, Functional Strength, Safety, Balance, Gait, Transfer, Bed Mobility Treatment/Plan Treatment Plan: Continue Plan of Care Treatment Plan: Bed Mobility, Education, Functional Activity Eliseo, Functional Strength, Gait, Safety, Therapeutic Exercise, Transfers Treatment Duration: Oct 18, 2017 Frequency: 6 times per week Estimated Hrs Per Day: .25 hour per day Patient and/or Family Agrees t: Yes Discharge Recommendations Therapy D/C Recommendations: [facility] Placement Time/GCodes Time In: 826 Time Out: 844 Total Billed Treatment Time: 18 Total Billed Treatment 1 visit [facility] 18 min KELSEY NICHOLSON PT Oct 03, 2017 09:17
[2017-10-03] MEDS: OSELTAMIVIR 6 MG/ML (TAMIFLU) 60 ML BOT GT SCH ×2 (09:46→21:47)
[2017-10-03] MEDS: CHLORHEXIDINE 0.12% SOLN 15 ML (PERIDEX) UDC PO SCH ×2 (09:46→20:43)
[2017-10-03] MEDS: FAMOTIDINE 20MG/2ML IV (PEPCID) IV SCH (09:46)
--- NOTE | 2017-10-03 10:01 | Diagnostic Imaging Report ---
INDICATION: Shortness of breath. EXAMINATION: Portable chest at 4:56 AM. FINDINGS: There is an ET tube projecting over the trachea. An NG tube projects over the stomach. The right IJ central line tip projects over the SVC. There is cardiomegaly. There is some right basilar infiltrate or atelectasis that appears stable from the previous day. IMPRESSION: No change in the chest from the previous day. Dictated by: Dictated on workstation # [id number]
[2017-10-03] MEDS ORDERED: ONDANSETRON 4 MG/2 ML (SDV) Z0FRAN ONE (10:15)
[2017-10-03] MEDS ORDERED: ONDANSETRON 4 MG/2 ML (SDV) Z0FRAN IVP PRN (10:30)
--- NOTE | 2017-10-03 12:20 | Occupational Therapy Eval ---
OT Evaluation-General/PLF Medical Diagnosis Admission Date Sep 30, 2017 at 20:40 Medical Diagnosis: Influenza B/sepsis Onset Date: Sep 30, 2017 Therapy Diagnosis Therapy Diagnosis: Weakness, Decreased ADL skills Height/Weight Height (Feet): 5 Height (Inches): 8.00 Weight (Pounds): 321 Weight (Ounces): 2.0 Precautions Precautions/Isolations: Droplet Isolation, Fall Prevention, Standard Precautions Safety Interventions: None Weight Bear Status Weight Bearing Restriction: Weight Bearing/Tolerated Referral Physician: Sugey Referral Reason: Activity Tolerance, Self Care, Evaluation/Treatment, Strengthening/ROM Medical History Pertinent Medical History: DM, Heart Failure, HTN Additional Medical History CHF, asthma, SOB Current History Pt. lives in [place]. Came to hospital with SOB. Found to have influenza B. Pt. put on ventilator. Extubated yesterday. Reviewed History: Yes Social History Home: [facility] ADL-Prior Level of Function ADL PLOF Comments Pt. is very confused and very BISHOP PAIUTE. OT has to get very close to his ear, and talk loudly, slowly, and in deep voice. Pt. states that he thinks he lives in [facility], but isn't sure. States that he does not know where he is now. When asked, pt. states that he thinks that he was independent with bathing and dressing. Pt. does indicate that he was using a walker. DME/Equipment Comments It is not fully known at this time what equipment pt. was using or his prior level. When asked, pt. 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 does not report pain, but at one point does start to state that he "can't talk right." Also states over and over "I don't feel good." OT monitored vitals on overhead machine and vitals okay. Nursing called into the room and made aware. However, after pt. saying this, began to talk fine and quit saying that he didn't feel well. Appearance Pt. is up in reclining chair. Pt. has multiple tubes/monitors on him. Pt. coughing loudly and profusely. Mental Status/Objective Patient Orientation: Confused Attachments: Khan Catheter, IV, Oxygen, Telemetry Current Hand Dominance: Left Upper Extremity ROM Pt. is asked if he can raise his hands above his head. He does not understand this request at first. When he does understand, he is able to flex bilateral shoulders to approximately 20 degrees. Pt. is unable to understand cues for continued ROM testing. Upper Extremity Strength After multiple cues and visual demonstration, pt. is able to squeeze OT's hands with his hands. Noted bilateral weakness with 2/5 radial drill operator for plastic strength. Unable to understand cues for continued strength testing. Edema: Pt. demonstrates edema in bilateral hands. ADL-Treatment Functional [place] Measure 0=Not Assessed/NA 4=Minimal Assistance 1=Total Assistance 5=Supervision or Setup 2=Maximal Assistance 6=Modified [place] 3=Moderate Assistance 7=Complete IndependenceIRFPAI Quality Coding Scale 6 Independent with activity with or without an assistive device 5 Patient requires set up or clean up by helper. Patient completes activity by themselves 4 Supervision or touching assist (CGA). Corea provide cues , steadying assist 3 The helper provides less than half the effort to complete the activity 2 The helper provides more than half the effort to complete the activity 1 Dependent. The helper does all the effort to complete an activity 7 Patient refused to complete or attempt activity 9 The patient did not perform the activity before the current illness or injury 88 Not attempted due to Medical conditions or safety concerns Eating (FIM): 3 (Pt. is given gatorade bottle, as well as cup with broth in it. Pt. is able to hold these and very slowly bring to mouth. Requires mod assist however to not spill. ) Lower Body Dressing (FIM): 1 (Pt. is unable to doff or don socks.) Toileting (FIM): 1 (Pt. has catheter.) Nursing reports that pt. requires max x 2 to transfer to chair. Pt. very BISHOP PAIUTE and confused. OT attempted to get pt. to do multiple tasks, at multiple levels as pt. able. Pt. very limited due to coughing, confusion, and discomfort. Pt. unable to understand many of OT's requests to move, transfer, or complete grooming/ADL tasks. Pt. would benefit from skilled treatment to work on strength and mobility. Education OT Patient Education: Correct positioning, Modified ADL techniques, Progress toward Goal/Update tx plan, Purpose of tx/functional activities, Reviewed precautions, Rehab process, Transfer techniques Teaching Recipient: Patient Teaching Methods: Demonstration, Discussion Response to Teaching: Unable to Return Demonstration OT Short Term Goals Short Term Goals Time Frame: Oct 17, 2017 Eating(FIM): 3 Grooming(FIM): 3 Upper Body Dressing(FIM): 3 Lower Body Dressing(FIM): 3 Toileting(FIM): 3 Transfers (B,C,W/C) (FIM): 3 Toilet/Commode Transfer(FIM): 3 Additional Short Term Goals: 1-Demonstrate ADL Tasks, 2-Verbalize Understanding , 3-ImproveStrength/Eliseo 1=Demonstrate adherence to instructed precautions during ADL tasks. 2=Patient will verbalize/demonstrate understanding of assistive devices/ modifications for ADL. 3=Patient will improve strength/tolerance for activity to enable patient to perform ADL's. OT [employer] Goals Assisted Goals Time Frame: Oct 31, 2017 Eating (FIM): 5 Grooming(FIM): 5 Upper Body Dressing(FIM): 4 Lower Body Dressing(FIM): 4 Toileting(FIM): 4 Transfers (B,C,W/C) (FIM): 5 Toilet/Commode Transfer(FIM): 5 Additional Goals: 1-Demonstrate ADL Tasks, 2-Verbalize Understanding, 3- ImproveStrength/Eliseo 1=Demonstrate adherence to instructed precautions during ADL tasks. 2=Patient will verbalize/demonstrate understanding of assistive devices/ modifications for ADL. 3=Patient will improve strength/tolerance for activity to enable patient to perform ADL's. OT Education/Plan Problem List/Assessment Assessment: Decreased Activ Tolerance, Decreased Safety Aware, Decreased UE Strength, Dependent Transfers, Edema, Impaired Bed Mobility, Impaired Cognition , Impaired Coordination, Impaired Funct Balance, Impaired I ADL's, Impaired Self -Care Skills, Restricted Funct UE ROM Discharge Recommendations Plan/Recommendations: Continue POC Therapy D/C Recommendations: 24 hr Supervision Target Placement half-way placement with skilled treatment. Will determine pt's prior level of function. Treatment Plan/Plan of Care Treatment,Training & Education: Yes Patient would benefit from OT for education, treatment and training to promote independence in ADL's, mobility, safety and/or upper extremity function for ADL' s. Plan of Care: ADL Retraining, Caregiver Training, Functional Mobility, UE Funct Exercise/Act Treatment Duration: Oct 31, 2017 Frequency: 5 times per week Estimated Hrs Per Day: .25 hour per day Agreement: Yes Rehab Potential: Fair Time/GCodes Start Time: 11:20 Stop Time: 11:45 Total Time Billed (hr/min): 25 Billed Treatment Time 1, EVH x 25minutes GILBERTO NICOLE OT Oct 03, 2017 12:20
[2017-10-03] MEDS: morphine INJ 4 MG/ML 1 ML (VIAL/SYRINGE) IVP PRN ×2 (13:59→17:04)
[2017-10-03] MEDS ORDERED: RT-ALBUTEROL/IPRATROPIUM 3 ML (DUONEB) VIAL INH PRN (17:15)
[2017-10-03] MEDS: RT-ALBUTEROL/IPRATROPIUM 3 ML (DUONEB) VIAL INH SCH ×2 (18:18→22:52)
[2017-10-03] MEDS: guaiFENesin/DM (ROBITUSSIN DM) 10 ML UDC PO PRN (23:02)
[2017-10-04] VITALS (10 sets, daily range): BP systolic 127–193; BP diastolic 73–102
[2017-10-04] MEDS: morphine INJ 4 MG/ML 1 ML (VIAL/SYRINGE) IVP PRN (00:08)
[2017-10-04] MEDS: 1/2 NS IV SOLUTION 1,000 ML IV SCH (00:08)
[2017-10-04] MEDS: inSUlin (REGULAR) HUMAN 1 UNIT/0.01 ML (CHARGE PER UNIT) SC SCH ×4 (00:21→19:31)
[2017-10-04] MEDS: RT-ALBUTEROL/IPRATROPIUM 3 ML (DUONEB) VIAL INH SCH ×6 (03:46→22:53)
[2017-10-04 05:32] LABS: BASOPHILS % (AUTO) 0 % (0-10); EOSINOPHILS # (AUTO) 0.1 10^3/uL (0.0-0.3); EOSINOPHILS % (AUTO) 1 % (0-10); HEMATOCRIT 25 % (40-54); HEMOGLOBIN 7.9 G/DL (13.3-17.7); LYMPHOCYTES # (AUTO) 1.8 X 10^3 (1.0-4.0); LYMPHOCYTES % (AUTO) 23 % (12-44); MEAN CORPUSCULAR HEMOGLOBIN 23 PG (25-34); MEAN CORPUSCULAR HGB CONC 31 G/DL (32-36); MEAN CORPUSCULAR VOLUME 74 FL (80-99); MEAN PLATELET VOLUME 9.4 FL (7.4-10.4); MONOCYTES # (AUTO) 0.7 X 10^3 (0.0-1.0); MONOCYTES % (AUTO) 9 % (0-12); NEUTROPHILS # (AUTO) 5.2 X 10^3 (1.8-7.8); NEUTROPHILS % (AUTO) 67 % (42-75); PLATELET COUNT 290 10^3/uL (130-400); RED BLOOD COUNT 3.43 10^6/uL (4.35-5.85); RED CELL DISTRIBUTION WIDTH 23.1 % (10.0-14.5); WHITE BLOOD COUNT 7.8 10^3/uL (4.3-11.0)
[2017-10-04 05:49] LABS: CALCIUM 7.6 MG/DL (8.5-10.1); CREATININE SERUM 1.91 MG/DL (0.60-1.30); MAGNESIUM 1.8 MG/DL (1.8-2.4); PHOSPHORUS 3.3 MG/DL (2.3-4.7); POTASSIUM 3.5 MMOL/L (3.6-5.0)
[2017-10-04] MEDS: MAGNESIUM 1 GM/100 ML IVPB 100 ML IV SCH (06:43)
[2017-10-04] MEDS: POTASSIUM CL 10MEQ/50ML IVPB 50 ML IV SCH ×3 (06:43→08:30)
[2017-10-04] MEDS: KCL 20 MEQ TAB (K-DUR) PO SCH (06:44)
--- NOTE | 2017-10-04 07:41 | Progress Note-Hospitalist ---
Subjective HPI/CC On Admission Date Seen by Provider: Oct 04, 2017 Time Seen by Provider: 07:15 Pt is a 77yoCM with a PMH of IDDMII, HTN, diastolic CHF, and asthma who presented to outside ER for decreased responsiveness and SOB. He is intubated and unable to provide history. I called his NH and his RN informed me that his symptoms started 4 days ago. He had a cough and wheezing and was started on a z- pack 3 days ago. Yesterday quickly worsened with altered mental status, SOB, and increased work of breathing. No fevers. Another member at facility has been sick with influenza recently. He is normally ambulatory, alert and oriented x4 per the facility report.He is a full code. Edge Finisher in July was 1.15. Subjective/Events-last exam Pt is very hard of hearing so interview is somewhat limited. He reports persistent cough but otherwise feeling well. Objective Exam Vital Signs Vital Sign - Last 12Hours 09/30/17 09/30/17 09/30/17 10/01/17 20:30 20:39 20:45 00:00 Temp 99.3 Pulse 103 Resp 18 B/P (MAP) 70/47 (55) Pulse Ox 95 O2 Delivery Nasal Cannula O2 Flow Rate 4.00 FiO2 60 Capillary Refill : General Appearance: No Apparent Distress, WD/WN Respiratory: No Respiratory Distress Cardiovascular: Regular Rate, Rhythm, No Murmur Gastrointestinal: Normal Bowel Sounds, Non Tender, Soft Extremity: Non Tender, No Calf Tenderness, No Pedal Edema Neurologic/Psychiatric: Alert Results/Procedures Lab Laboratory Tests 10/04/17 05:28 Assessment/Plan Assessment and Plan Assess & Plan/Chief Complaint Septic Shock Diagnosis/Problems Diagnosis/Problems (1) Septic shock Status: Resolved Assessment & Plan: PNA Influenza B + Titrate off Levophed Blood cultures and urine cultures done at OSH, await results have not been faxed yet Still awaiting those records Sputum growing strep pneumo On Rocephin (2) Acute respiratory failure Status: Acute Assessment & Plan: Extubated 10/03 Pulm consulted, appreciate recs MAT protocol Qualifiers: Qualified Codes: J96.02 - Acute respiratory failure with hypercapnia (3) CARIE (acute kidney injury) Assessment & Plan: Edge Finisher from ebr 1.15 Now 1.91, improving Monitor I/Os Continue IVF (4) Influenza B Status: Acute Assessment & Plan: Continue Tamiflu (5) High anion gap metabolic acidosis Status: Resolved Assessment & Plan: No longer acidotic Off bicarb gtt (6) Insulin dependent diabetes mellitus Assessment & Plan: On Levemir 24 and Novolog 18 as outpatient On Sliding scale currently Trend, fasting BS 120 this AM (7) Essential (primary) hypertension Assessment & Plan: Blood pressure within goal on no meds Will resume home meds if increases (8) Hypokalemia Assessment & Plan: On replacement protocol (9) Microcytic anemia Assessment & Plan: Chronic, Hgb from July was 8.4 Trend , drop from 9.2 to 7.9 this am Consider transfusion if drops below 7.0 (10) Hypomagnesemia Status: Acute Assessment & Plan: On replacement protocol (11) Prophylactic measure Assessment & Plan: Saline lock Heparin for DVT ppx Famotidine for GI ppx SARAH REINA MD Oct 04, 2017 7:41 am
--- NOTE | 2017-10-04 07:59 | Pulmonary Progress Note ---
Subjective Time Seen by Provider: 08:00 Subjective/Events-last exam No complications noted. Exam Exam Vital Signs Date Time Temp Pulse Resp B/P (MAP) Pulse Ox O2 Delivery O2 Flow Rate FiO2 10/04/17 06:38 93 Nasal Cannula 5.00 10/04/17 06:00 78 22 137/77 (97) 93 High Flow N/C 5.00 10/04/17 05:00 82 25 143/77 (99) 91 High Flow N/C 5.00 10/04/17 04:00 High Flow N/C 5.00 10/04/17 04:00 81 23 148/75 (99) 94 High Flow N/C 5.00 10/04/17 03:46 95 Nasal Cannula 5.00 10/04/17 03:00 78 20 143/75 (97) 94 High Flow N/C 5.00 10/04/17 02:00 81 20 145/73 (97) 94 High Flow N/C 5.00 10/04/17 01:00 92 25 94 High Flow N/C 5.00 10/04/17 01:00 92 10/04/17 00:10 98.7 10/04/17 00:00 High Flow N/C 5.00 10/04/17 00:00 95 29 127/102 (110) 93 High Flow N/C 5.00 10/03/17 23:00 84 25 131/72 (91) 97 High Flow N/C 5.00 10/03/17 22:53 93 Nasal Cannula 5.00 10/03/17 22:00 90 32 136/61 (86) 92 High Flow N/C 5.00 10/03/17 21:00 105 28 126/67 (86) 93 High Flow N/C 5.00 10/03/17 20:18 99.1 High Flow N/C 5.00 10/03/17 20:00 93 26 123/70 (87) 92 High Flow N/C 5.00 10/03/17 20:00 High Flow N/C 5.00 10/03/17 19:00 97 10/03/17 19:00 93 41 118/61 (80) 95 High Flow N/C 5.00 10/03/17 18:20 97 Nasal Cannula 5.00 10/03/17 18:00 105 24 108/51 (70) 91 High Flow N/C 5.00 10/03/17 17:00 88 30 115/66 (82) 94 High Flow N/C 5.00 10/03/17 16:16 High Flow N/C 5.00 10/03/17 16:00 86 28 106/60 (75) 93 High Flow N/C 5.00 10/03/17 15:00 86 22 95/62 (73) 92 High Flow N/C 5.00 10/03/17 14:00 93 19 118/63 (81) 92 High Flow N/C 5.00 10/03/17 13:00 90 22 122/89 (100) 94 High Flow N/C 5.00 10/03/17 13:00 97 10/03/17 12:45 High Flow N/C 5.00 10/03/17 12:28 98.0 10/03/17 12:00 97 23 138/65 (89) 94 High Flow N/C 5.00 10/03/17 11:00 101 28 122/65 (84) 93 High Flow N/C 5.00 10/03/17 10:17 94 Nasal Cannula 5.00 10/03/17 10:00 78 32 154/102 (119) 92 High Flow N/C 5.00 10/03/17 09:00 High Flow N/C 5.00 10/03/17 08:15 High Flow N/C 5.00 10/03/17 08:11 97.5 10/03/17 08:00 82 24 112/63 (79) 90 High Flow N/C 5.00 I & O 10/04/17 07:00 Intake Total 1598 ml Output Total 2700 ml Balance -1102 ml General Appearance: No Apparent Distress, WD/WN HEENT: PERRL/EOMI, Other (OG in place) Neck: No JVD, No Thyromegaly Respiratory: No Respiratory Distress Cardiovascular: Regular Rate, Rhythm, No Murmur Gastrointestinal: normal bowel sounds, non tender, soft Extremity: Non Tender, No Calf Tenderness, No Pedal Edema Neurologic/Psychiatric: Alert Skin: Normal Color, Warm/Dry Results Lab Laboratory Tests 10/03/17 04:05 10/04/17 05:28 Assessment/Plan Assessment/Plan Severe sepsis with pneumonia and acute respiratory failure -pt extubated yesterday -Andino cultures pending Hypernatremia, Hyperchloremia -1/2 NS at 50cc/hr - Continue Rocephin for 7days total Acute bronchitis -Solumedrol 40mg IV Q6 -SVNs Influenza B -Continue Tamiflu x 5 days Morbid obesity Acute kidney failure with metabolic acidosis -IVF - change IVF to NS at 50 -D/C Bicarb gtt 233 MISTY VASQUEZ DO Oct 04, 2017 07:59
[2017-10-04] MEDS: OSELTAMIVIR 6 MG/ML (TAMIFLU) 60 ML BOT GT SCH ×2 (08:30→21:48)
[2017-10-04] MEDS: FAMOTIDINE 20MG/2ML IV (PEPCID) IV SCH (08:30)
[2017-10-04] MEDS: methylPREDNISolone 40 MG/ML (Solu-MEDROL) VIAL IV SCH ×3 (08:30→21:48)
--- NOTE | 2017-10-04 09:53 | Diagnostic Imaging Report ---
INDICATION: Shortness breath EXAM: Portable chest at 4:45 AM FINDINGS: Right IJ central line tip projects over the SVC. Heart size and pulmonary vascularity are normal. Lungs are clear. There may be a small right effusion with some fluid present in the fissures. IMPRESSION: A small right pleural effusion. Overall aeration is improved compared to the previous day. Dictated by: Dictated on workstation # [id number]
--- NOTE | 2017-10-04 11:13 | Physical Therapy Daily Note ---
PT Daily Note-Current Subjective Patient is in bed attempting to eat supine. Pain Numeric Pain Scale: 0-No Pain Location: No Pain Reported Appearance extremely [place] Mental Status Patient Orientation: Person Attachments: Oxygen, Khan Catheter Transfers Functional [place] Measure 0=Not Assessed/NA 4=Minimal Assistance 1=Total Assistance 5=Supervision or Setup 2=Maximal Assistance 6=Modified [place] 3=Moderate Assistance 7=Complete IndependenceIRFPAI Quality Coding Scale 6 Independent with activity with or without an assistive device 5 Patient requires set up or clean up by helper. Patient completes activity by themselves 4 Supervision or touching assist (CGA). [place] provide cues , steadying assist 3 The helper provides less than half the effort to complete the activity 2 The helper provides more than half the effort to complete the activity 1 Dependent. The helper does all the effort to complete an activity 7 Patient refused to complete or attempt activity 9 The patient did not perform the activity before the current illness or injury 88 Not attempted due to Medical conditions or safety concerns Transfers (B, C, W/C) (FIM): 1 Scootin Rollin Supine to/from Sit: 2 Sit to/from Stand: 1 Bed to/from Chair: 1 patient unable to perform sit to stand without dependent assist with blocking knees with SPT. Weight Bearing Right Lower Extremity: Right Weight Bearing/Tolerated Left Lower Extremity: Left Weight Bearing/Tolerated Assessment Patient is up in recliner with tray in place. PT placed sit to stand lift in room for nursing to perform for safety. PT Short Term Goals Short Term Goals Transfers (B,C,W/C) (FIM): 3 PT Detention Goals Clerical Warehouse Worker Goals PT Detention Goals Time Frame: Oct 18, 2017 Transfers (B,C,W/C) (FIM): 4 Gait (FIM): 1 Gait distance (FIM): 1=up to 49 ft Distance: 25' Gait Level of Assist: 4 Gait Assistive Device: FWW PT Plan Treatment/Plan Treatment Plan: Continue Plan of Care Treatment Plan: Bed Mobility, Education, Functional Activity Eliseo, Functional Strength, Gait, Safety, Therapeutic Exercise, Transfers Treatment Duration: Oct 18, 2017 Frequency: 6 times per week Estimated Hrs Per Day: .25 hour per day Patient and/or Family Agrees t: Yes Time/GCodes Time In: 1035 Time Out: 1045 Total Billed Treatment Time: 10 Total Billed Treatment 1 visit FA 10 min KELSEY NICHOLSON PT Oct 04, 2017 11:13
--- NOTE | 2017-10-04 15:13 | Occupational Ther Daily Note ---
OT Current Status-Daily Note Subjective Pt. states that he is "not doing very good." Appearance Pt. in bed. PT and nursing have just put him back via the sit to stand lift. Mental Status/Objective Patient Orientation: Unable to Assess Functional [place] Measure 0=Not Assessed/NA 4=Minimal Assistance 1=Total Assistance 5=Supervision or Setup 2=Maximal Assistance 6=Modified [place] 3=Moderate Assistance 7=Complete [place] Attachments: Oxygen Pt. is very [place]. OT speaks in left ear in loud, low voice. This seems to help. ADL-Treatment Grooming (FIM): 4 (Pt. reluctantly agrees to brush his teeth. Requires set up and then min assist to physically position everything in front of him. Pt. does not seem to know how to sequence the steps. OT hands him the zarate to spit, and the cup to drink. Requires cues to swish and spit. ) Other Treatment Due to being [place], pt. has difficulty understanding what OT wants him to do. Pt. had just transferred back to new bed. OT engages pt. in UE exercises, but pt. requires visual cues, as he is unable to auditorily understand what OT is asking of him to do. Pt. completes 10 bilateral UE shoulder flexion exercises. These are slow and labored for him. He has limited ROM in bilateral shoulders. Education OT Patient Education: Correct positioning, Exercise program, Modified ADL techniques Teaching Recipient: Patient Teaching Methods: Demonstration Response to Teaching: Reinforcement Needed OT Short Term Goals Short Term Goals Time Frame: Oct 17, 2017 Eating(FIM): 3 Grooming(FIM): 3 Upper Body Dressing(FIM): 3 Lower Body Dressing(FIM): 3 Toileting(FIM): 3 Transfers (B,C,W/C) (FIM): 3 Toilet/Commode Transfer(FIM): 3 Additional Short Term Goals: 1-Demonstrate ADL Tasks, 2-Verbalize Understanding , 3-ImproveStrength/Eliseo 1=Demonstrate adherence to instructed precautions during ADL tasks. 2=Patient will verbalize/demonstrate understanding of assistive devices/ modifications for ADL. 3=Patient will improve strength/tolerance for activity to enable patient to perform ADL's. OT Encephalographer Goals Chcf Goals Time Frame: Oct 31, 2017 Eating (FIM): 5 Grooming(FIM): 5 Upper Body Dressing(FIM): 4 Lower Body Dressing(FIM): 4 Toileting(FIM): 4 Transfers (B,C,W/C) (FIM): 5 Toilet/Commode Transfer(FIM): 5 Additional Goals: 1-Demonstrate ADL Tasks, 2-Verbalize Understanding, 3- ImproveStrength/Eliseo 1=Demonstrate adherence to instructed precautions during ADL tasks. 2=Patient will verbalize/demonstrate understanding of assistive devices/ modifications for ADL. 3=Patient will improve strength/tolerance for activity to enable patient to perform ADL's. OT Education/Plan Problem List/Assessment Assessment: Decreased Activ Tolerance, Decreased UE Strength, Dependent Transfers, Impaired Bed Mobility, Impaired Cognition, Impaired Coordination, Impaired Funct Balance, Impaired I ADL's, Impaired Self-Care Skills, Restricted Funct UE ROM Discharge Recommendations Plan/Recommendations: Continue POC Therapy D/C Recommendations: 24 hr Supervision Treatment Plan/Plan of Care Treatment,Training & Education: Yes Patient would benefit from OT for education, treatment and training to promote independence in ADL's, mobility, safety and/or upper extremity function for ADL' s. Plan of Care: ADL Retraining, Caregiver Training, Functional Mobility, UE Funct Exercise/Act Treatment Duration: Oct 31, 2017 Frequency: 5 times per week Estimated Hrs Per Day: .25 hour per day Agreement: Yes Rehab Potential: Fair Time/GCodes Start Time: 13:50 Stop Time: 14:10 Total Time Billed (hr/min): 20 Billed Treatment Time 1, ADL GILBERTO NICOLE OT Oct 04, 2017 15:13
[2017-10-04] MEDS: guaiFENesin/DM (ROBITUSSIN DM) 10 ML UDC PO PRN (22:45)
[2017-10-05] VITALS: BP 181/85
[2017-10-05] MEDS: inSUlin (REGULAR) HUMAN 1 UNIT/0.01 ML (CHARGE PER UNIT) SC SCH ×3 (00:44→12:27)
[2017-10-05] MEDS: RT-ALBUTEROL/IPRATROPIUM 3 ML (DUONEB) VIAL INH SCH ×6 (02:22→21:26)
[2017-10-05] MEDS: guaiFENesin/DM (ROBITUSSIN DM) 10 ML UDC PO PRN (03:02)
[2017-10-05] MEDS: methylPREDNISolone 40 MG/ML (Solu-MEDROL) VIAL IV SCH ×4 (03:02→21:13)
[2017-10-05 03:20] VITALS: BP 148/79
[2017-10-05] MEDS: MAGNESIUM 1 GM/100 ML IVPB 100 ML IV SCH (05:28)
[2017-10-05] MEDS: POTASSIUM CL 10MEQ/50ML IVPB 50 ML IV SCH (05:28)
[2017-10-05] MEDS: KCL 20 MEQ TAB (K-DUR) PO SCH (05:29)
[2017-10-05 05:39] LABS: BASOPHILS % (AUTO) 0 % (0-10); EOSINOPHILS % (AUTO) 0 % (0-10); HEMATOCRIT 27 % (40-54); HEMOGLOBIN 8.5 G/DL (13.3-17.7); LYMPHOCYTES # (AUTO) 0.4 X 10^3 (1.0-4.0); LYMPHOCYTES % (AUTO) 5 % (12-44); MEAN CORPUSCULAR HEMOGLOBIN 23 PG (25-34); MEAN CORPUSCULAR HGB CONC 32 G/DL (32-36); MEAN CORPUSCULAR VOLUME 73 FL (80-99); MEAN PLATELET VOLUME 9.7 FL (7.4-10.4); MONOCYTES # (AUTO) 0.2 X 10^3 (0.0-1.0); MONOCYTES % (AUTO) 3 % (0-12); NEUTROPHILS # (AUTO) 6.6 X 10^3 (1.8-7.8); NEUTROPHILS % (AUTO) 92 % (42-75); PLATELET COUNT 324 10^3/uL (130-400); RED CELL DISTRIBUTION WIDTH 23.2 % (10.0-14.5); WHITE BLOOD COUNT 7.2 10^3/uL (4.3-11.0)
[2017-10-05 05:54] LABS: CALCIUM 8.4 MG/DL (8.5-10.1); CREATININE SERUM 1.76 MG/DL (0.60-1.30); MAGNESIUM 1.7 MG/DL (1.8-2.4); PHOSPHORUS 2.5 MG/DL (2.3-4.7); POTASSIUM 3.3 MMOL/L (3.6-5.0)
[2017-10-05 08:00] VITALS: BP 178/96
--- NOTE | 2017-10-05 08:10 | Diagnostic Imaging Report ---
EXAM: CHEST 1 VIEW, AP/PA ONLY INDICATION: Dyspnea. COMPARISON: Chest radiograph 10/04/2017. FINDINGS: Cardiomegaly. Right IJ CVC tip mid SVC. Mildly increased pulmonary venous congestion, similar to the prior exam. No pneumothorax. No pleural effusion. No acute osseous findings IMPRESSION: Stable exam including cardiomegaly with mild pulmonary venous congestion. Dictated by: Dictated on workstation # [id number]
[2017-10-05] MEDS: FAMOTIDINE 20MG/2ML IV (PEPCID) IV SCH (09:43)
[2017-10-05] MEDS: OSELTAMIVIR 6 MG/ML (TAMIFLU) 60 ML BOT GT SCH ×2 (09:44→21:16)
--- NOTE | 2017-10-05 12:44 | Progress Note-Hospitalist ---
Progress Note HPI/CC on Admission Pt is a 77yoCM with a PMH of IDDMII, HTN, diastolic CHF, and asthma who presented to outside ER for decreased responsiveness and SOB. He is intubated and unable to provide history. I called his NH and his RN informed me that his symptoms started 4 days ago. He had a cough and wheezing and was started on a z- pack 3 days ago. Yesterday quickly worsened with altered mental status, SOB, and increased work of breathing. No fevers. Another member at facility has been sick with influenza recently. He is normally ambulatory, alert and oriented x4 per the facility report.He is a full code. X Ray Inspector in July was 1.15. Progress Notes/Assess & Plan Date Seen 10/05/17 Time Seen by Provider: 10:30 Diagonsis/Assessment & Plan Patient doing about the same Very hard of hearing unable to really carry on much meaningful conversation Blood sugars are running high so reconcile all of his home meds and initiated scheduled long-acting and rapid acting insulin Reviewed meds and completed all transfer orders from ICU Rocephin tolerated Tamiflu tolerated Will supplement potassium due to 3.3 level Creatinine improved from 1.9-1.7 Sitting in chair No fever, vital signs stable, pleasant, very hard of hearing Regular rate and rhythm, diminished breath sounds in the bases with coarseness but no tachypnea good air expansion Trace edema lower extremities Laboratory Tests 10/05/17 05:20 Assessment: Septic shock status post aggressive IV fluids Acute influenza B s/p Respiratory failure Bronchitis acute bacterial type Chronic renal failure Diabetes mellitus out of control due to steroids but insulin-dependent Severe presbycusis Hypokalemia Plan: Replace potassium Monitor creatinine Scheduled insulin Is continue catheter Monitor closely Poor prognosis appears to be minimally functional when he is clinically stable NAZ FROST DO Oct 05, 2017 12:44
[2017-10-05] MEDS ORDERED: guaiFENesin/DM (ROBITUSSIN DM) 10 ML UDC PO PRN (12:45)
[2017-10-05] MEDS: KCL 10 MEQ TAB (MICRO K) PO SCH ×2 (13:15→17:37)
[2017-10-05] MEDS: inSUlin DETERMIR 1 UNIT/0.01 ML (LEVEMIR) CHARGE PER UNIT SQ SCH ×2 (13:15→21:13)
[2017-10-05 16:00] VITALS: BP 172/80
[2017-10-05] MEDS: inSUlin ASPART (NovoLOG) 1 UNIT/0.01 ML (CHARGE PER UNIT) SC SCH (17:37)
[2017-10-05] MEDS: IRON POLYSAC 150 MG CAP (NIFEREX) PO SCH (17:37)
[2017-10-05] MEDS: ATORVASTATIN 10 MG (LIPITOR) TABLET PO SCH (17:37)
[2017-10-05 20:00] VITALS: BP 150/80
[2017-10-05] MEDS: PRAMIPEXOLE 0.5 MG TAB (MIRAPEX) PO SCH (21:13)
[2017-10-05] MEDS: GABAPENTIN 600 MG (NEURONTIN) TAB PO SCH (21:14)
[2017-10-05] MEDS: ADVAIR HFA 115/21 MCG INHALER 8 GM IH SCH (21:28)
[2017-10-06] VITALS (7 sets, daily range): BP systolic 160–178; BP diastolic 80–90
[2017-10-06] MEDS: RT-ALBUTEROL/IPRATROPIUM 3 ML (DUONEB) VIAL INH SCH ×6 (01:15→22:54)
[2017-10-06] MEDS: methylPREDNISolone 40 MG/ML (Solu-MEDROL) VIAL IV SCH ×3 (02:13→21:18)
[2017-10-06] MEDS: guaiFENesin/DM (ROBITUSSIN DM) 10 ML UDC PO PRN (02:15)
[2017-10-06 05:43] LABS: BASOPHILS % (AUTO) 0 % (0-10); EOSINOPHILS % (AUTO) 0 % (0-10); HEMATOCRIT 28 % (40-54); HEMOGLOBIN 8.6 G/DL (13.3-17.7); LYMPHOCYTES # (AUTO) 0.5 X 10^3 (1.0-4.0); LYMPHOCYTES % (AUTO) 5 % (12-44); MEAN CORPUSCULAR HEMOGLOBIN 23 PG (25-34); MEAN CORPUSCULAR HGB CONC 31 G/DL (32-36); MEAN CORPUSCULAR VOLUME 73 FL (80-99); MEAN PLATELET VOLUME 9.7 FL (7.4-10.4); MONOCYTES # (AUTO) 0.4 X 10^3 (0.0-1.0); MONOCYTES % (AUTO) 4 % (0-12); NEUTROPHILS # (AUTO) 9.2 X 10^3 (1.8-7.8); NEUTROPHILS % (AUTO) 92 % (42-75); PLATELET COUNT 396 10^3/uL (130-400); RED BLOOD COUNT 3.82 10^6/uL (4.35-5.85); WHITE BLOOD COUNT 10.1 10^3/uL (4.3-11.0)
[2017-10-06 06:13] LABS: ALBUMIN 3.2 GM/DL (3.2-4.5); BILIRUBIN,TOTAL 0.3 MG/DL (0.1-1.0); CALCIUM 8.6 MG/DL (8.5-10.1); CREATININE SERUM 1.78 MG/DL (0.60-1.30); TOTAL PROTEIN 6.6 GM/DL (6.4-8.2)
[2017-10-06] MEDS: inSUlin ASPART (NovoLOG) 1 UNIT/0.01 ML (CHARGE PER UNIT) SC SCH ×3 (06:20→16:14)
[2017-10-06] MEDS: IRON POLYSAC 150 MG CAP (NIFEREX) PO SCH ×2 (06:20→16:14)
[2017-10-06] MEDS: KCL 10 MEQ TAB (MICRO K) PO SCH ×3 (06:20→16:14)
[2017-10-06] MEDS: FAMOTIDINE 20 MG (PEPCID) TABLET PO SCH (06:20)
[2017-10-06] MEDS: ADVAIR HFA 115/21 MCG INHALER 8 GM IH SCH ×2 (07:02→18:46)
[2017-10-06] MEDS ORDERED: RT-ADVAIR HFA 115/21 MCG PER PUFF IH SCH (08:00)
[2017-10-06] MEDS: GABAPENTIN 600 MG (NEURONTIN) TAB PO SCH ×2 (09:09→21:19)
[2017-10-06] MEDS: ASPIRIN E.C. 81 MG (ECOTRIN) TAB PO SCH (09:09)
[2017-10-06] MEDS: inSUlin DETERMIR 1 UNIT/0.01 ML (LEVEMIR) CHARGE PER UNIT SQ SCH ×2 (09:10→21:18)
[2017-10-06] MEDS ORDERED: KCL 20 MEQ TAB (K-DUR) PO SCH (11:00)
--- NOTE | 2017-10-06 12:03 | Progress Note-Hospitalist ---
Progress Note HPI/CC on Admission Pt is a 77yoCM with a PMH of IDDMII, HTN, diastolic CHF, and asthma who presented to outside ER for decreased responsiveness and SOB. He is intubated and unable to provide history. I called his NH and his RN informed me that his symptoms started 4 days ago. He had a cough and wheezing and was started on a z- pack 3 days ago. Yesterday quickly worsened with altered mental status, SOB, and increased work of breathing. No fevers. Another member at facility has been sick with influenza recently. He is normally ambulatory, alert and oriented x4 per the facility report.He is a full code. Lna in July was 1.15. Progress Notes/Assess & Plan Date Seen 10/06/17 Time Seen by Provider: 10:45 Diagonsis/Assessment & Plan Patient doing abetter but so debilitated chronically it is difficult to ascertain Very hard of hearing unable to really carry on much meaningful conversation Blood sugars are still running high so reconciled all of his home meds and initiated scheduled long-acting and rapid acting insulin yesterday and decreased Solu-medrol so that should help Reviewed meds and completed all transfer orders from ICU Rocephin tolerated Tamiflu tolerated Will cont supplement potassium due to 3.3 level Creatinine improved from 1.9-1.78 Sitting in chair Took out his IJ last night Elevated BP required addition of meds this morning No fever, vital signs stable, pleasant, very hard of hearing Regular rate and rhythm, diminished breath sounds in the bases with coarseness but no tachypnea good air expansion Trace edema lower extremities Laboratory Tests 10/06/17 05:30 Assessment: Septic shock status post aggressive IV fluids Acute influenza B s/p Respiratory failure Bronchitis acute bacterial type Chronic renal failure Diabetes mellitus out of control due to steroids but insulin-dependent Severe presbycusis Hypokalemia HTN OOC Plan: Replace potassium Monitor creatinine Scheduled insulin Monitor closely Poor prognosis appears to be minimally functional when he is clinically stable Dispo back to [place] tomorrow Decrease steroids NAZ FROST DO Oct 06, 2017 12:03
[2017-10-06] MEDS: KCL 20 MEQ TAB (K-DUR) PO SCH ×2 (12:08→16:14)
[2017-10-06] MEDS: amLODIPine 5 MG (NORVASC) TAB PO SCH (12:09)
[2017-10-06] MEDS: ATORVASTATIN 10 MG (LIPITOR) TABLET PO SCH (16:13)
[2017-10-06] MEDS: PRAMIPEXOLE 0.5 MG TAB (MIRAPEX) PO SCH (21:19)
[2017-10-07] MEDS: RT-ALBUTEROL/IPRATROPIUM 3 ML (DUONEB) VIAL INH SCH ×6 (03:49→21:22)
[2017-10-07 04:00] VITALS: BP 171/80
[2017-10-07 05:42] LABS: BASOPHILS % (AUTO) 0 % (0-10); EOSINOPHILS % (AUTO) 0 % (0-10); HEMATOCRIT 29 % (40-54); HEMOGLOBIN 8.8 G/DL (13.3-17.7); LYMPHOCYTES # (AUTO) 0.5 X 10^3 (1.0-4.0); LYMPHOCYTES % (AUTO) 6 % (12-44); MEAN CORPUSCULAR HEMOGLOBIN 22 PG (25-34); MEAN CORPUSCULAR HGB CONC 30 G/DL (32-36); MEAN CORPUSCULAR VOLUME 74 FL (80-99); MEAN PLATELET VOLUME 9.5 FL (7.4-10.4); MONOCYTES # (AUTO) 0.4 X 10^3 (0.0-1.0); MONOCYTES % (AUTO) 5 % (0-12); NEUTROPHILS # (AUTO) 7.3 X 10^3 (1.8-7.8); NEUTROPHILS % (AUTO) 89 % (42-75); PLATELET COUNT 432 10^3/uL (130-400); RED BLOOD COUNT 3.92 10^6/uL (4.35-5.85); RED CELL DISTRIBUTION WIDTH 23.2 % (10.0-14.5); WHITE BLOOD COUNT 8.2 10^3/uL (4.3-11.0)
[2017-10-07 06:03] LABS: ALBUMIN 3.2 GM/DL (3.2-4.5); BILIRUBIN,TOTAL 0.2 MG/DL (0.1-1.0); CALCIUM 8.4 MG/DL (8.5-10.1); CREATININE SERUM 1.69 MG/DL (0.60-1.30); POTASSIUM 3.6 MMOL/L (3.6-5.0); TOTAL PROTEIN 6.5 GM/DL (6.4-8.2)
[2017-10-07] MEDS: inSUlin ASPART (NovoLOG) 1 UNIT/0.01 ML (CHARGE PER UNIT) SC SCH ×3 (06:08→17:45)
[2017-10-07] MEDS: IRON POLYSAC 150 MG CAP (NIFEREX) PO SCH ×2 (06:08→17:45)
[2017-10-07] MEDS: KCL 10 MEQ TAB (MICRO K) PO SCH ×3 (06:08→17:45)
[2017-10-07] MEDS: FAMOTIDINE 20 MG (PEPCID) TABLET PO SCH (06:08)
[2017-10-07] MEDS: KCL 20 MEQ TAB (K-DUR) PO SCH ×3 (06:08→17:45)
[2017-10-07] MEDS: ADVAIR HFA 115/21 MCG INHALER 8 GM IH SCH ×2 (06:40→20:20)
[2017-10-07 08:00] VITALS: BP 158/83
[2017-10-07] MEDS: methylPREDNISolone 40 MG/ML (Solu-MEDROL) VIAL IV SCH ×2 (09:02→20:43)
[2017-10-07] MEDS: amLODIPine 5 MG (NORVASC) TAB PO SCH (09:02)
[2017-10-07] MEDS: ASPIRIN E.C. 81 MG (ECOTRIN) TAB PO SCH (09:03)
[2017-10-07] MEDS: GABAPENTIN 600 MG (NEURONTIN) TAB PO SCH ×2 (09:03→20:42)
[2017-10-07] MEDS: inSUlin DETERMIR 1 UNIT/0.01 ML (LEVEMIR) CHARGE PER UNIT SQ SCH ×2 (09:04→20:43)
--- NOTE | 2017-10-07 10:49 | Physical Therapy Daily Note ---
PT Daily Note-Current Subjective Patient is up in recliner and agrees to PT. Pain Numeric Pain Scale: 0-No Pain Location: No Pain Reported Mental Status Patient Orientation: Normal For Age Attachments: Oxygen Transfers Functional [place] Measure 0=Not Assessed/NA 4=Minimal Assistance 1=Total Assistance 5=Supervision or Setup 2=Maximal Assistance 6=Modified [place] 3=Moderate Assistance 7=Complete IndependenceIRFPAI Quality Coding Scale 6 Independent with activity with or without an assistive device 5 Patient requires set up or clean up by helper. Patient completes activity by themselves 4 Supervision or touching assist (CGA). [place] provide cues , steadying assist 3 The helper provides less than half the effort to complete the activity 2 The helper provides more than half the effort to complete the activity 1 Dependent. The helper does all the effort to complete an activity 7 Patient refused to complete or attempt activity 9 The patient did not perform the activity before the current illness or injury 88 Not attempted due to Medical conditions or safety concerns Transfers (B, C, W/C) (FIM): 5 Scootin Sit to/from Stand: 5 Weight Bearing Right Lower Extremity: Right Weight Bearing/Tolerated Left Lower Extremity: Left Weight Bearing/Tolerated Exercises Supine Ex: Ankle pumps, Quad Set, Heel Slides, Straight leg raise Supine Reps: 15 (3 sets) Seated Therapy Exercises: Ankle pumps, Long arc quads, Hip flexion Seated Reps: 15 (3 sets) Standing: Marching Standing Reps: 20 (2 sets) Assessment Patient is much improved with gross motor skills and is SBA with sit to stand transfers. Patient performed exercises in recliner supine with legs elevated, leg rest down for seated and sit to stand and marching without difficulty. Patient did have some SOA, however, recovered quickly. PT Short Term Goals Short Term Goals Transfers (B,C,W/C) (FIM): 3 PT Cloth Classer Goals Cloth Classer Goals PT Detention Goals Time Frame: Oct 18, 2017 Transfers (B,C,W/C) (FIM): 4 Gait (FIM): 1 Gait distance (FIM): 1=up to 49 ft Distance: 25' Gait Level of Assist: 4 Gait Assistive Device: FWW PT Plan Treatment/Plan Treatment Plan: Continue Plan of Care Treatment Plan: Bed Mobility, Education, Functional Activity Eliseo, Functional Strength, Gait, Safety, Therapeutic Exercise, Transfers Treatment Duration: Oct 18, 2017 Frequency: 6 times per week Estimated Hrs Per Day: .25 hour per day Patient and/or Family Agrees t: Yes Time/GCodes Time In: 1015 Time Out: 1038 Total Billed Treatment Time: 23 Total Billed Treatment 1 visit EX x 2 23 min KELSEY NICHOLSON PT Oct 07, 2017 10:49
[2017-10-07 12:00] VITALS: BP 132/68
--- NOTE | 2017-10-07 12:05 | Progress Note-Hospitalist ---
Standard Progress Note Progress Notes/Assess & Plan Date Seen 10/07/17 Time Seen by Provider: 12:03 Diagnosis Septic Shock Assess & Plan/Chief Complaint The patient is sitting in the chair at bedside. He is eager to return to his retirement in [place]. It is not clear whether the weather today will allow that to be achieved. He has no specific complaints. He is extremely hard of hearing. Physical exam: He is alert and pleasant. He is disturbed about being unable to shave here. Lungs are clear to auscultation. CV is regular. Abdomen is quite obese. Vital signs are normal. Impression: Influenza B-positive status. 2.sepsis. 3.morbid obesity. 4.extreme deafness. Plan: Explore transportation availability. Labs Laboratory Tests 10/06/17 05:30 10/07/17 05:30 DELIA ADAMS MD Oct 07, 2017 12:05
--- NOTE | 2017-10-07 15:06 | Occupational Ther Daily Note ---
OT Current Status-Daily Note Subjective Pt seen in room, up in recliner, agreeable to OT. No pain mentioned. Mental Status/Objective Functional [place] Measure 0=Not Assessed/NA 4=Minimal Assistance 1=Total Assistance 5=Supervision or Setup 2=Maximal Assistance 6=Modified [place] 3=Moderate Assistance 7=Complete [place] Other Treatment Pt was very focused on being able to return to [facility] and was upset that apparently he isn't going today. He did 10 reps bilat UE exercise with no additional weight, working on shoulders and forearms. To strengthen arms to help with transfers. Difficulty staying on task and also very hard of hearing. pt left up in recliner, all needs met. Education OT Patient Education: Exercise program Teaching Recipient: Patient Teaching Methods: Demonstration, Discussion Response to Teaching: Verbalize Understanding, Return Demonstration, Reinforcement Needed OT Short Term Goals Short Term Goals Time Frame: Oct 17, 2017 Eating(FIM): 3 Grooming(FIM): 3 Upper Body Dressing(FIM): 3 Lower Body Dressing(FIM): 3 Toileting(FIM): 3 Transfers (B,C,W/C) (FIM): 3 Toilet/Commode Transfer(FIM): 3 Additional Short Term Goals: 1-Demonstrate ADL Tasks, 2-Verbalize Understanding , 3-ImproveStrength/Eliseo 1=Demonstrate adherence to instructed precautions during ADL tasks. 2=Patient will verbalize/demonstrate understanding of assistive devices/ modifications for ADL. 3=Patient will improve strength/tolerance for activity to enable patient to perform ADL's. OT Pipe Stem Sawyer Goals Pipe Stem Sawyer Goals Time Frame: Oct 31, 2017 Eating (FIM): 5 Grooming(FIM): 5 Upper Body Dressing(FIM): 4 Lower Body Dressing(FIM): 4 Toileting(FIM): 4 Transfers (B,C,W/C) (FIM): 5 Toilet/Commode Transfer(FIM): 5 Additional Goals: 1-Demonstrate ADL Tasks, 2-Verbalize Understanding, 3- ImproveStrength/Eliseo 1=Demonstrate adherence to instructed precautions during ADL tasks. 2=Patient will verbalize/demonstrate understanding of assistive devices/ modifications for ADL. 3=Patient will improve strength/tolerance for activity to enable patient to perform ADL's. OT Education/Plan Discharge Recommendations Plan/Recommendations: Continue POC Treatment Plan/Plan of Care Patient would benefit from OT for education, treatment and training to promote independence in ADL's, mobility, safety and/or upper extremity function for ADL' s. Plan of Care: ADL Retraining, Caregiver Training, Functional Mobility, UE Funct Exercise/Act Treatment Duration: Oct 31, 2017 Frequency: 5 times per week Estimated Hrs Per Day: .25 hour per day Agreement: Yes Rehab Potential: Fair Time/GCodes Start Time: 14:05 Stop Time: 14:20 Total Time Billed (hr/min): 15 Billed Treatment Time visit, 15 minutes exercise JATINDER CHOUDHARY OT Oct 07, 2017 15:06
[2017-10-07 16:24] VITALS: BP 144/71
[2017-10-07] MEDS: ATORVASTATIN 10 MG (LIPITOR) TABLET PO SCH (17:45)
[2017-10-07] MEDS: PRAMIPEXOLE 0.5 MG TAB (MIRAPEX) PO SCH (20:42)
[2017-10-08] VITALS: BP 171/80
[2017-10-08] MEDS: RT-ALBUTEROL/IPRATROPIUM 3 ML (DUONEB) VIAL INH SCH ×4 (04:15→14:05)
[2017-10-08] MEDS: KCL 20 MEQ TAB (K-DUR) PO SCH ×2 (06:06→12:34)
[2017-10-08] MEDS: inSUlin ASPART (NovoLOG) 1 UNIT/0.01 ML (CHARGE PER UNIT) SC SCH ×2 (06:06→12:34)
[2017-10-08] MEDS: IRON POLYSAC 150 MG CAP (NIFEREX) PO SCH (06:06)
[2017-10-08] MEDS: KCL 10 MEQ TAB (MICRO K) PO SCH ×2 (06:06→12:33)
[2017-10-08] MEDS: FAMOTIDINE 20 MG (PEPCID) TABLET PO SCH (06:06)
[2017-10-08] MEDS: ADVAIR HFA 115/21 MCG INHALER 8 GM IH SCH (06:25)
[2017-10-08 08:00] VITALS: BP 151/74
[2017-10-08] MEDS: inSUlin DETERMIR 1 UNIT/0.01 ML (LEVEMIR) CHARGE PER UNIT SQ SCH (09:19)
[2017-10-08] MEDS: amLODIPine 5 MG (NORVASC) TAB PO SCH (09:19)
[2017-10-08] MEDS: methylPREDNISolone 40 MG/ML (Solu-MEDROL) VIAL IV SCH (09:19)
[2017-10-08] MEDS: ASPIRIN E.C. 81 MG (ECOTRIN) TAB PO SCH (09:19)
[2017-10-08] MEDS: GABAPENTIN 600 MG (NEURONTIN) TAB PO SCH (09:19)
--- NOTE | 2017-10-08 10:39 | Physical Therapy Daily Note ---
PT Daily Note-Current Subjective Patient is in bed and agrees to PT. Pain Numeric Pain Scale: 0-No Pain Location: No Pain Reported Mental Status Patient Orientation: Normal For Age Transfers Functional [place] Measure 0=Not Assessed/NA 4=Minimal Assistance 1=Total Assistance 5=Supervision or Setup 2=Maximal Assistance 6=Modified [place] 3=Moderate Assistance 7=Complete IndependenceIRFPAI Quality Coding Scale 6 Independent with activity with or without an assistive device 5 Patient requires set up or clean up by helper. Patient completes activity by themselves 4 Supervision or touching assist (CGA). [place] provide cues , steadying assist 3 The helper provides less than half the effort to complete the activity 2 The helper provides more than half the effort to complete the activity 1 Dependent. The helper does all the effort to complete an activity 7 Patient refused to complete or attempt activity 9 The patient did not perform the activity before the current illness or injury 88 Not attempted due to Medical conditions or safety concerns Transfers (B, C, W/C) (FIM): 5 Scootin Supine to/from Sit: 5 Sit to/from Stand: 5 Weight Bearing Right Lower Extremity: Right Weight Bearing/Tolerated Left Lower Extremity: Left Weight Bearing/Tolerated Gait Training Gait (FIM): 1 Distance (FIM): 1=up to 49 ft Distance: 15' x 2 Gait Level of Assist: 5 Gait Assistive Device: FWW shuffle gait sequence/functional Exercises Seated Therapy Exercises: Sit to stand Seated Reps: 5 Assessment Patient to dismiss to [place] on this date. He has progressed with treatment plan with will continue to benefit from skilled PT at [place]. PT Short Term Goals Short Term Goals Transfers (B,C,W/C) (FIM): 3 PT [facility] Goals Ceramics Technician Goals PT Ceramics Technician Goals Time Frame: Oct 18, 2017 Transfers (B,C,W/C) (FIM): 4 Gait (FIM): 1 Gait distance (FIM): 1=up to 49 ft Distance: 25' Gait Level of Assist: 4 Gait Assistive Device: FWW PT Plan Treatment/Plan Treatment Plan: Discontinue PT Treatment Plan: Bed Mobility, Education, Functional Activity Eliseo, Functional Strength, Gait, Safety, Therapeutic Exercise, Transfers Treatment Duration: Oct 18, 2017 Frequency: 6 times per week Estimated Hrs Per Day: .25 hour per day Patient and/or Family Agrees t: Yes Time/GCodes Time In: 1001 Time Out: 1024 Total Billed Treatment Time: 23 Total Billed Treatment 1 visit FA x 2 23 min KELSEY NICHOLSON PT Oct 08, 2017 10:39
--- NOTE | 2017-10-08 10:55 | Discharge Summary-Hospitalist ---
Diagnosis/Chief Complaint Date of Admission Sep 30, 2017 at 20:40 Date of Discharge 10/08/17 Admission Diagnosis Septic Shock Discharge Diagnosis (1) Septic shock Status: Resolved Assessment & Plan: PNA Influenza B + Titrate off Levophed Blood cultures and urine cultures done at OSH, await results have not been faxed yet Still awaiting those records Sputum growing strep pneumo On Rocephin (2) Acute respiratory failure Status: Acute Assessment & Plan: Extubated 10/03 Pulm consulted, appreciate recs MAT protocol (3) CARIE (acute kidney injury) Assessment & Plan: Emergency Services Professional from [place] 1.15 Now 1.91, improving Monitor I/Os Continue IVF (4) Influenza B Status: Acute Assessment & Plan: Continue Tamiflu (5) High anion gap metabolic acidosis Status: Resolved Assessment & Plan: No longer acidotic Off bicarb gtt (6) Insulin dependent diabetes mellitus Assessment & Plan: On Levemir 24 and Novolog 18 as outpatient On Sliding scale currently Trend, fasting BS 120 this AM (7) Essential (primary) hypertension Assessment & Plan: Blood pressure within goal on no meds Will resume home meds if increases (8) Hypokalemia Assessment & Plan: On replacement protocol (9) Microcytic anemia Assessment & Plan: Chronic, Hgb from July was 8.4 Trend , drop from 9.2 to 7.9 this am Consider transfusion if drops below 7.0 (10) Hypomagnesemia Status: Acute Assessment & Plan: On replacement protocol (11) Prophylactic measure Assessment & Plan: Saline lock Heparin for DVT ppx Famotidine for GI ppx Discharge Summary Discharge Physical Examination Allergies: Coded Allergies: Latex (Verified Allergy, Unknown, 09/01/07) Vitals & I&Os Vital Signs Date Time Temp Pulse Resp B/P (MAP) Pulse Ox O2 Delivery O2 Flow Rate FiO2 10/08/17 09:54 High Flow N/C 3.00 10/08/17 09:53 91 10/08/17 08:00 97.5 88 22 151/74 (99) 10/03/17 04:00 40 Hospital Course The patient is a 77-year-old white male from the [facility]. He was admitted on 09/30 as a transfer from the [place] emergency room. He lives in a [facility] nursing facility. He reportedly had begun to have upper respiratory symptoms 3 or 4 days prior to his presentation to the emergency room initially had a cough and wheezing. The day prior to presentation his mental status seemed to be altered as well as considerable shortness of breath and work of breathing. At the [facility] emergency room he tested positive for influenza B and that required intubation. He was transferred here for higher level of care. While at the [place] emergency room he was hypotensive and received 3 L of fluid IV and was started on levaphed. His lactic acid was 3.1 and overnight dropped to 0.79. He remained on the ventilator until 10/03. He is improvement has been slow and steady. He had hoped for discharge yesterday but weather conditions did not permit nonlocal transfers. Physical examination at this time shows him to be extremely hard of hearing. He is alert and oriented. Lungs show distant breath sounds but are clear. He is quite obese. O2 testing meets criteria for discharge at 2 L/m. Labs (last 24 hrs) Laboratory Tests 10/07/17 12:02: Glucometer 296H 10/07/17 15:47: Glucometer 342H 10/07/17 20:41: Glucometer 233H 10/08/17 04:22: Glucometer 159H Microbiology 10/01/17 Blood Culture - Final, Complete No growth 10/01/17 Gram Stain - Final, Complete 10/01/17 Sputum Culture - Final, Complete Streptococcus Pneumoniae Pending Labs Laboratory Tests 10/08/17 04:22: Glucometer 159 Discharge Home Medications: Active Scripts Active Reported Tramadol HCl 50 Mg Tablet 100 Mg PO Q8H PRN TAKES 2 (50MG) TABLETS Guaifenesin Dm Syrup (Guaifenesin/Dextromethorphan) 5 Ml Syrup 10 Ml PO Q6H PRN Ventolin Hfa (Albuterol Sulfate) 18 Gm Hfa.aer.ad 2 Puff INH Q4H PRN Humalog (Insulin Lispro) 100 Unit/1 Ml Vial 8 Unit SQ TID Levemir (Insulin Determir) 1,000 Units/10 Ml Soln 24 Units SQ 2000 Gabapentin 600 Mg Tablet 600 Mg PO TID Polysaccharide Iron 150 (Iron Polysaccharide Complex) 150 Mg Capsule 150 Mg PO BID Metformin HCl 500 Mg Tablet 500 Mg PO BID Pramipexole Dihydrochloride (Pramipexole Di-HCl) 1 Mg Tablet 1 Mg PO 1999 Lisinopril-Hctz 20-12.5 mg Tab (Lisinopril/Hydrochlorothiazide) 1 Each Tablet 1 Tab PO DAILY Breo Ellipta 100-25 Mcg INH (Fluticasone/Vilanterol) 1 Each Blst.w.dev 1 Puff IH DAILY Azithromycin 250 Mg Tablet 250 Mg PO UD TAKE 2 TABLETS ON DAY ONE THEN TAKE 1 TABLET DAILY FOR FOUR MORE DAYS END DATE 10-02-17 Atorvastatin Calcium 10 Mg Tablet 10 Mg PO 1700 Aspirin EC (Aspirin) 81 Mg Tablet.dr 81 Mg PO DAILY Condition at discharge Improved Instructions to patient/family Please see electronic discharge instructions given to patient. Copy Copies To 1: MARYJANE CORBIN MD Problem Qualifiers (1) Acute respiratory failure: Respiratory failure complication: hypercapnia Qualified Codes: J96.02 - Acute respiratory failure with hypercapnia DELIA ADAMS MD Oct 08, 2017 10:54
--- NOTE | 2017-10-08 11:02 | Discharge Instructions ---
Discharge Instructions Discharge Medications New, Converted or Re-Newed RX: RX on Chart Patient Instructions Patient Instructions: Resume previous diet. O2 by nasal cannula at 2 L/m Dr. Petersen for any new concerns. Activity & Diet Discharge Diet: ADA Diet Activity as Tolerated: Yes DELIA ADAMS MD Oct 08, 2017 11:02
[2017-10-08] MEDS ORDERED: LIDOCAINE UROJET 2% GEL 10 ML PKG TOP ONE (15:00)
== END 2017-10-08 16:30 | DRG 871 ==
LOC: ICU 20:40 → 4TH 10-04 09:17
PROVIDERS: ADMIT Internal Medicine; ATTEND Internal Medicine
PROC: 02HV33Z Insertion of Infusion Device into Superior Vena Cava, Percutaneous Approach (ICD-10-PCS; principal; 2017-09-30)
PROC: 5A1945Z Respiratory Ventilation, 24-96 Consecutive Hours (ICD-10-PCS; 2017-10-01)
DX: A41.89 Other specified sepsis (principal); R65.21 Severe sepsis with septic shock; J10.00 Influenza due to other identified influenza virus with unspecified type of pneumonia; J96.02 Acute respiratory failure with hypercapnia; N17.9 Acute kidney failure, unspecified; E87.2 Acidosis; I11.0 Hypertensive heart disease with heart failure; I50.30 Unspecified diastolic (congestive) heart failure; E66.01 Morbid (severe) obesity due to excess calories; Z68.42 Body mass index [BMI] 45.0-49.9, adult; J20.9 Acute bronchitis, unspecified; E11.9 Type 2 diabetes mellitus without complications; J45.909 Unspecified asthma, uncomplicated; Z79.4 Long term (current) use of insulin; E87.6 Hypokalemia; D50.9 Iron deficiency anemia, unspecified; E83.42 Hypomagnesemia; H91.10 Presbycusis, unspecified ear
CPT/HCPCS: 36415; 71045; 80048; 80053; 81000; 82040; 82247; 82805; 82962; 83605; 83735; 83880; 84075; 84100; 84450; 84460; 84484; 85007; 85025; 85027; 87040; 87070; 87077; 87205; 94002; 94003; 94640; 94660; 94760; 94761; 94799

== ENCOUNTER 2020-03-01 10:51 | Inpatient (IN) | payer MEDICARE, MEDICAID ==
[~2020-03-01] VITALS: Ht 175.3 cm; Wt 111.8 kg
[~2020-03-01 10:51] MED LIST changes: +ALBU18HF2 INH; +ASPI-983 PO; +ATOR10TA66 PO; +AZIT250T12 PO; +FLUT1AER IH; +GBPN600T PO; +GUAI5SYR PO; +INSU100V SQ; +INSU100V5 SQ; +IRON150C8 PO; +LISI1TAB25 PO; +METF-397 PO; +PRAM1TAB5 PO; +TRM50T PO
[2020-03-01] MEDS ORDERED: NS IV 1000 ML 1,000 ML IV STA (11:00)
--- NOTE | 2020-03-01 11:13 | ED GI ---
General Stated Complaint: N/V; DIARRHEA Source of Information: Patient, EMS History of Present Illness Date Seen by Provider: Mar 01, 2020 Time Seen by Provider: 10:51 Initial Comments 79-year-old male presenting from alf with complaints of nausea, vomiting, diarrhea 4 days. Patient states that he hurts all over his body. He has had increased weakness and decreased urine output in the last 24 hours. Today he was more lethargic and found to be hypotensive by staff so EMS was activated. He was given 4 mg of Zofran and started on fluids by EMS. Complains of diffuse abdominal pain with palpation. He states that he has not urinated since yesterday. Allergies and Home Medications Allergies Coded Allergies: Latex (Verified Allergy, Unknown, 09/01/07) Home Medications Albuterol Sulfate 18 Gm Hfa.aer.ad, 2 PUFF INH Q4H PRN for SHORTNESS OF BREATH, (Reported) Aspirin 81 Mg Tablet.dr, 81 MG PO DAILY, (Reported) Atorvastatin Calcium 10 Mg Tablet, 10 MG PO 1700, (Reported) Fluticasone/Vilanterol 1 Each Blst.w.dev, 1 PUFF IH DAILY, (Reported) Gabapentin 600 Mg Tablet, 600 MG PO TID, (Reported) Guaifenesin/Dextromethorphan 5 Ml Syrup, 10 ML PO Q6H PRN for COUGH, (Reported) Insulin Determir 1,000 Units/10 Ml Soln, 24 UNITS SQ 2000, (Reported) Insulin Lispro 100 Unit/1 Ml Vial, 8 UNIT SQ TID, (Reported) Iron Polysaccharide Complex 150 Mg Capsule, 150 MG PO BID, (Reported) Lisinopril/Hydrochlorothiazide 1 Each Tablet, 1 TAB PO DAILY, (Reported) Metformin HCl 500 Mg Tablet, 500 MG PO BID, (Reported) Pramipexole Di-HCl 1 Mg Tablet, 1 MG PO 2000, (Reported) Tramadol HCl 50 Mg Tablet, 100 MG PO Q8H PRN for PAIN-MODERATE, (Reported) TAKES 2 (50MG) TABLETS Patient Home Medication List Home Medication List Reviewed: Yes Review of Systems Review of Systems Constitutional: malaise, weakness (generalized) EENTM: No Symptoms Reported Respiratory: No Symptoms Reported Cardiovascular: No Symptoms Reported Gastrointestinal: Abdomen Distended, Abdominal Pain, Diarrhea, Nausea, Poor Appetite, Poor Fluid Intake, Vomiting Genitourinary: Other (decreased urine output in the last 24 hours) Musculoskeletal: muscle pain (generalized) Skin: no symptoms reported Psychiatric/Neurological: Denies Headache; Weakness (general) Past Ycpsxwu-Ivcqgw-Vpecet Hx Past Med/Social Hx: Reviewed Nursing Past Med/Soc Hx Past Medical History Respiratory: Yes Cardiac: Yes Hypertension Genitourinary: No Gastrointestinal: No Endocrine: Yes Diabetes, Insulin dep Family Medical History Unable to verify as patient intubated and NH does not have that on file Physical Exam Vital Signs Vital Signs - First Documented 03/01/20 11:00 Temp 36.0 Pulse 90 Resp 18 B/P (MAP) 91/64 (73) Pulse Ox 98 O2 Delivery Room Air Capillary Refill : Height/Weight/BMI Height: 5'8.00" Weight: 305lbs. 0.0oz. [id number]; 46.4 BMI Method: General Appearance: WD/WN, no apparent distress, obese HEENT: PERRL/EOMI; No pharyngeal erythema; other (dry mucous membranes) Neck: non-tender, full range of motion, supple Respiratory: chest non-tender, lungs clear, normal breath sounds Cardiovascular: normal peripheral pulses, regular rate, rhythm Gastrointestinal: soft, no pulsatile mass, abnormal bowel sounds (hypoactive), distended; No guarding, No rebound; tenderness (diffuse tenderness) Extremities: normal range of motion, normal capillary refill Neurologic/Psychiatric: alert Skin: normal color, warm/dry Focused Exam Lactate Level 03/01/20 11:00: Lactic Acid Level 1.79 Lactic Acid Level Laboratory Tests Test 03/01/20 11:00 Lactic Acid Level 1.79 MMOL/L (0.50-2.00) Procedures/Interventions Date of ETT Placement: Oct 01, 2017 Time of ETT Placement: 24 Progress/Results/Core Measures Results/Orders Lab Results Laboratory Tests Test 03/01/20 11:00 03/01/20 11:08 Range/Units White Blood Count 12.2 H 4.3-11.0 10^3/uL Red Blood Count 3.63 L 4.35-5.85 10^6/uL Hemoglobin 9.8 L 13.3-17.7 G/DL Hematocrit 30 L 40-54 % Mean Corpuscular Volume 82 80-99 FL Mean Corpuscular Hemoglobin 27 25-34 PG Mean Corpuscular Hemoglobin Concent 33 32-36 G/DL Red Cell Distribution Width 21.8 H 10.0-14.5 % Platelet Count 391 130-400 10^3/uL Mean Platelet Volume 9.7 7.4-10.4 FL Neutrophils (%) (Auto) 83 H 42-75 % Lymphocytes (%) (Auto) 7 L 12-44 % Monocytes (%) (Auto) 8 0-12 % Eosinophils (%) (Auto) 2 0-10 % Basophils (%) (Auto) 0 0-10 % Neutrophils # (Auto) 10.2 H 1.8-7.8 X 10^3 Lymphocytes # (Auto) 0.9 L 1.0-4.0 X 10^3 Monocytes # (Auto) 0.9 0.0-1.0 X 10^3 Eosinophils # (Auto) 0.2 0.0-0.3 10^3/uL Basophils # (Auto) 0.0 0.0-0.1 10^3/uL Neutrophils % (Manual) 83 % Lymphocytes % (Manual) 7 % Monocytes % (Manual) 4 % Eosinophils % (Manual) 1 % Basophils % (Manual) 0 % Band Neutrophils 5 % Hypochromasia SLIGHT Poikilocytosis SLIGHT Sodium Level 131 L 135-145 MMOL/L Potassium Level 3.3 L 3.6-5.0 MMOL/L Chloride Level 91 L 98-107 MMOL/L Carbon Dioxide Level 19 L 21-32 MMOL/L Anion Gap 21 H 5-14 MMOL/L Blood Urea Nitrogen 60 H 7-18 MG/DL Creatinine 2.51 H 0.60-1.30 MG/DL Estimat Glomerular Filtration Rate 25 BUN/Creatinine Ratio 24 Glucose Level 141 H 70-105 MG/DL Lactic Acid Level 1.79 0.50-2.00 MMOL/L Calcium Level 7.7 L 8.5-10.1 MG/DL Corrected Calcium 8.9 8.5-10.1 MG/DL Magnesium Level 1.6 1.6-2.4 MG/DL Total Bilirubin 0.8 0.1-1.0 MG/DL Aspartate Amino Transf (AST/SGOT) 71 H 5-34 U/L Alanine Aminotransferase (ALT/SGPT) 34 0-55 U/L Alkaline Phosphatase 358 H 40-136 U/L Pro-B-Type Natriuretic Peptide 1065.0 H <75.0 PG/ML Total Protein 5.9 L 6.4-8.2 GM/DL Albumin 2.5 L 3.2-4.5 GM/DL Lipase 11 8-78 U/L Urine Color YELLOW Urine Clarity CLEAR Urine pH 6.0 5-9 Urine Specific [place] 1.015 L 1.016-1.022 Urine Protein 1+ H NEGATIVE Urine Glucose (UA) NEGATIVE NEGATIVE Urine Ketones TRACE H NEGATIVE Urine Nitrite NEGATIVE NEGATIVE Urine Bilirubin 2+ H NEGATIVE Urine Urobilinogen 0.2 < = 1.0 MG/DL Urine Leukocyte Esterase 1+ H NEGATIVE Urine RBC (Auto) NEGATIVE NEGATIVE Urine RBC NONE /HPF Urine WBC 25-50 H /HPF Urine Squamous Epithelial Cells 2-5 /HPF Urine Crystals NONE /LPF Urine Bacteria MODERATE H /HPF Urine Casts PRESENT /LPF Urine Hyaline Casts 0-2 H /LPF Urine Mucus NEGATIVE /LPF Urine Culture Indicated YES My Orders Orders - CHRISTY ADAMSON MD Comprehensive Metabolic Panel (03/01/20 11:00) Lipase (03/01/20 11:00) Ua Culture If Indicated (03/01/20 11:00) Ed Iv/Invasive Line Start (03/01/20 11:00) Cbc With Automated Diff (03/01/20 11:00) Blood Culture (03/01/20 11:00) Lactic Acid Analyzer (03/01/20 11:00) Ns Iv 1000 Ml (Sodium Chloride 0.9%) (03/01/20 11:00) Probnp Fs (03/01/20 11:00) Magnesium (03/01/20 11:00) Khan Cath (03/01/20 11:00) Ct Abdomen/Pelvis Wo (03/01/20 11:03) Manual Differential (03/01/20 11:00) Pantoprazole Injection (Protonix Injecti (03/01/20 11:30) Dicyclomine Injection (Bentyl Injection) (03/01/20 11:28) Urine Culture (03/01/20 11:08) Ceftriaxone For Iv Use (Rocephin For I (03/01/20 11:31) Ns Iv 1000 Ml (Sodium Chloride 0.9%) (03/01/20 12:30) Medications Given in ED Current Medications Medications Dose Ordered Sig/Kasi Route Start Time Stop Time Status Last Admin Dose Admin Pantoprazole 40 mg ONCE ONCE IV 03/01/20 11:30 03/01/20 11:31 DC 03/01/20 11:32 40 MG Vital Signs/I&O 03/01/20 11:00 Temp 36.0 Pulse 90 Resp 18 B/P (MAP) 91/64 (73) Pulse Ox 98 O2 Delivery Room Air Progress Progress Note #1: Progress Note Check basic labs and urine. Place a catheter to be able to accurately monitor urine output since he's he reports no urine output since yesterday. Obtain a CT scan of his abdomen and pelvis without contrast since his baseline creatinine in the computer from 2018 was 1.7. He reports that his nausea is improved after treatment by EMS Progress Note #2: Time: 12:17 Progress Note CBC with elevated WBC count and left shift. Normal Lactic acid. Cr up to 2.51 with last level in the computer of 1.9 in 2018. BUN elevated to 60 to go with dehydration. BNP is elevated over 1065 CT scan shows findings concerning for metastatic cancer with ascites and omental caking, lymphadenopathy and lesions in liver. Progress Note #3: Time: 12:[address] Frausto accepted pt for transfer to [facility]. I did update the patient about CT findings concerning for advanced metastatic disease. He reports having prostate cancer in the past. He did not know of any cancer in his belly or li jaimee. Diagnostic Imaging Diagonstic Imaging: CT Plain Films/CT/US/NM/MRI: abdomen, pelvis Comments NAME: [facility]ONY [facility] REC#: [id number] PT STATUS: REG ER : 1940 PHYSICIAN: CHRISTY ADAMSON MD ADMIT DATE: 03/01/20/ER FS Draft Date of Exam:03/01/20 CT ABDOMEN/PELVIS WO PROCEDURE: CT abdomen and pelvis without contrast. TECHNIQUE: Multiple contiguous axial images were obtained through the abdomen and pelvis without the use of intravenous contrast. Auto Exposure Controls were utilized during the CT exam to meet ALARA standards for radiation dose reduction. INDICATION: Abdominal pain with nausea and vomiting. No prior studies are available for comparison. FINDINGS: Imaging through the lung bases demonstrates several subcentimeter noncalcified nodules, concerning for metastatic disease. There is some slightly nodular pleural thickening in the right base as well but no significant pleural fluid. The liver is heterogeneous. There are areas of low density within the liver which are concerning for hepatic metastatic disease. Largest is in the dome of the posterior right lobe measuring 2.7 cm in size. Gallbladder is not visualized and may be surgically absent. There is apparent mass involving the body of the pancreas measuring approximately 3.5 x 2.2 cm. No definite pancreatic or biliary duct dilatation is seen. Spleen is unremarkable. There is minimal perihepatic and perisplenic free fluid. No adrenal mass is identified. The kidneys are unremarkable. No calculi or hydronephrosis is seen. Aorta is calcified but non-aneurysmal. There is a filter within the inferior vena cava. Bowel loops do not appear to be dilated. There is some free fluid in the left pericolic gutter as well as within the pelvis. The bladder is decompressed by Khan catheter. There are multiple radiation seed implants within the prostate. There are some prominent lymph nodes in the central retroperitoneum left periaortic location. Largest solitary node measures 1.7 x 1.4 cm. No definite mesenteric lymphadenopathy is seen. There is some questionable mild stranding and perhaps minimal nodularity to the omentum in the right abdomen. The possibility of peritoneal carcinomatosis with omental caking cannot be entirely excluded. No definite pelvic lymphadenopathy is seen. Bony structures are nonacute. IMPRESSION: 1. Low-density lesions within the liver concerning for hepatic metastatic disease. There are also findings suspicious for a pancreatic mass. There is central retroperitoneal lymphadenopathy, ascites as well as omental nodularity and thickening. Features are concerning for metastatic disease with omental caking and perhaps peritoneal carcinomatosis. Tiny nodules within lung bases are noted, concerning for pulmonary metastatic disease. Dictated on workstation # [id number] Dict: 03/01/20 1202 Trans: 03/01/20 1214 [id number] Interpreted by: IVA JAIN MD Electronically signed by: Departure Communication (Admissions) Time/Spoke to Admitting Phy: 12:41 d/w Dr. rFausto and she accepted pt on behalf of [facility] for Dr. Petersen. Pt given Rocephin for UTI and continued on IVF for hydration. May need Oncology or Surgery consult for his metastatic disease seen on CT. 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 Referrals: MARYJANE PETERSEN MD (PCP/Family) Primary Care Physician CHRISTY ADAMSON MD Mar 01, 2020 11:13
[2020-03-01 11:20] LABS: BASOPHILS % (AUTO) 0 % (0-10); EOSINOPHILS % (AUTO) 2 % (0-10); HEMATOCRIT 30 % (40-54); HEMOGLOBIN 9.8 G/DL (13.3-17.7); LYMPHOCYTES % (AUTO) 7 % (12-44); MEAN CORPUSCULAR HEMOGLOBIN 27 PG (25-34); MEAN CORPUSCULAR HGB CONC 33 G/DL (32-36); MEAN CORPUSCULAR VOLUME 82 FL (80-99); MEAN PLATELET VOLUME 9.7 FL (7.4-10.4); MONOCYTES % (AUTO) 8 % (0-12); NEUTROPHILS % (AUTO) 83 % (42-75); PLATELET COUNT 391 10^3/uL (130-400); RED CELL DISTRIBUTION WIDTH 21.8 % (10.0-14.5); WHITE BLOOD COUNT 12.2 10^3/uL (4.3-11.0)
[2020-03-01 11:21] LABS: EOSINOPHILS # (AUTO) 0.2 10^3/uL (0.0-0.3); LYMPHOCYTES # (AUTO) 0.9 X 10^3 (1.0-4.0); MONOCYTES # (AUTO) 0.9 X 10^3 (0.0-1.0); NEUTROPHILS # (AUTO) 10.2 X 10^3 (1.8-7.8)
[2020-03-01 11:26] LABS: CLARITY,URINE CLEAR; COLOR,URINE YELLOW
[2020-03-01 11:27] LABS: BACTERIA,URINE MODERATE /HPF; BILIRUBIN,URINE 2+ (NEGATIVE); GLUCOSE, URINE (UA) NEGATIVE (NEGATIVE); KETONES,URINE TRACE (NEGATIVE); LEUKOCYTE ESTERASE ,URINE 1+ (NEGATIVE); NITRITE,URINE NEGATIVE (NEGATIVE); PROTEIN,URINE 1+ (NEGATIVE); WBC,URINE 25-50 /HPF
[2020-03-01 11:28] LABS: HYALINE CASTS, URINE 0-2 /LPF
[2020-03-01] MEDS ORDERED: DICYCLOMINE 10 MG/ML (BENTYL) 2 ML AMP IM STA (11:28)
[2020-03-01] MEDS ORDERED: PANTOPRAZOLE 40 MG (PROTONIX) VIAL IV ONE (11:30)
[2020-03-01] MEDS ORDERED: cefTRIAXone FOR IV USE 1,000 MG in WATER (STERILE) FOR INJECTION 10 ML IV STA (11:31)
[2020-03-01 11:43] LABS: CREATININE SERUM 2.51 MG/DL (0.60-1.30); POTASSIUM 3.3 MMOL/L (3.6-5.0)
[2020-03-01 11:44] LABS: ALBUMIN 2.5 GM/DL (3.2-4.5); BILIRUBIN,TOTAL 0.8 MG/DL (0.1-1.0); CALCIUM 7.7 MG/DL (8.5-10.1); MAGNESIUM 1.6 MG/DL (1.6-2.4); TOTAL PROTEIN 5.9 GM/DL (6.4-8.2)
[2020-03-01 11:51] LABS: BAND NEUTROPHILS 5 %; BASOPHILS % (MANUAL) 0 %; EOSINOPHILS % (MANUAL) 1 %; LYMPHOCYTES % (MANUAL) 7 %; MONOCYTES % (MANUAL) 4 %; NEUTROPHILS % (MANUAL) 83 %
[2020-03-01 11:52] LABS: HYPOCHROMASIA SLIGHT; POIKILOCYTOSIS SLIGHT
--- NOTE | 2020-03-01 12:15 | Diagnostic Imaging Report ---
PROCEDURE: CT abdomen and pelvis without contrast. TECHNIQUE: Multiple contiguous axial images were obtained through the abdomen and pelvis without the use of intravenous contrast. Auto Exposure Controls were utilized during the CT exam to meet ALARA standards for radiation dose reduction. INDICATION: Abdominal pain with nausea and vomiting. No prior studies are available for comparison. FINDINGS: Imaging through the lung bases demonstrates several subcentimeter noncalcified nodules, concerning for metastatic disease. There is some slightly nodular pleural thickening in the right base as well but no significant pleural fluid. The liver is heterogeneous. There are areas of low density within the liver which are concerning for hepatic metastatic disease. Largest is in the dome of the posterior right lobe measuring 2.7 cm in size. Gallbladder is not visualized and may be surgically absent. There is apparent mass involving the body of the pancreas measuring approximately 3.5 x 2.2 cm. No definite pancreatic or biliary duct dilatation is seen. Spleen is unremarkable. There is minimal perihepatic and perisplenic free fluid. No adrenal mass is identified. The kidneys are unremarkable. No calculi or hydronephrosis is seen. Aorta is calcified but non-aneurysmal. There is a filter within the inferior vena cava. Bowel loops do not appear to be dilated. There is some free fluid in the left pericolic gutter as well as within the pelvis. The bladder is decompressed by Khan catheter. There are multiple radiation seed implants within the prostate. There are some prominent lymph nodes in the central retroperitoneum left periaortic location. Largest solitary node measures 1.7 x 1.4 cm. No definite mesenteric lymphadenopathy is seen. There is some questionable mild stranding and perhaps minimal nodularity to the omentum in the right abdomen. The possibility of peritoneal carcinomatosis with omental caking cannot be entirely excluded. No definite pelvic lymphadenopathy is seen. Bony structures are nonacute. IMPRESSION: 1. Low-density lesions within the liver concerning for hepatic metastatic disease. There are also findings suspicious for a pancreatic mass. There is central retroperitoneal lymphadenopathy, ascites as well as omental nodularity and thickening. Features are concerning for metastatic disease with omental caking and perhaps peritoneal carcinomatosis. Tiny nodules within lung bases are noted, concerning for pulmonary metastatic disease. Dictated by: Dictated on workstation # [id number]
[2020-03-01] MEDS ORDERED: NS IV 1000 ML 1,000 ML IV SCH (12:30)
--- OUTSIDE RECORDS SUMMARY | 2020-03-01 12:39 | XMS REPORT ---
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 Role Phone MARYJANE CORBIN Unavailable PROBLEMS Type Condition ICD9-CM Code XUO16-QC Code Onset Dates Condition S tatus SNOMED Code Problem Panlobular emphysema 492.8 Nov, 0 1766538 Problem Current moderate episode of major depressive disorder without prior episode F32.1 Mar, 0 20907454 Problem Current moderate episode of major depressive disorder without prior episode 296.22 Mar, 0 73517399 Problem Bilateral leg edema R60.0 January, 0 682354867 Problem Falls frequently R29.6 Sep, 0 829689421 Problem Essential hypertension 401.9 May, 0 56814127 Problem Falls frequently V15.88 Sep, 0 583159977 Problem Current moderate episode of major depressive disorder F32.1 Active 01946738 Problem Anemia, chronic disease 285.29 Jun, 0 709820111 Problem Elevated cholesterol E78.00 Active 437840527 Problem Chronic systolic congestive heart failure 428.22 Nov, 0 639446340 Problem Encounter for Medicare annual wellness exam V70.0 Dec, 0 [id number] Problem Bilateral leg edema 782.3 January, 0 991102548 Problem Urge incontinence of urine 788.31 Mar, 0 92058108 Problem Essential hypertension I10 May, 0 03505518 Problem Anemia, chronic disease D63.8 Jun, 0 304992860 Problem Syncope and collapse R55 Jun, 0 470986339 Problem Encounter for Medicare annual wellness exam Z00.00 Dec, 0 [id number] Problem Wheelchair dependent V46.3 Aug, 0 233057688 Problem 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 Jun, 0 935826008 Problem Anemia due to blood loss D50.0 Activ e 243167808 Problem Primary osteoarthritis involving multiple joints 715.09 16 Sep, 2011 0 391119394 Problem Urge incontinence of urine N39.41 Mar, 0 59012328 Problem 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 Sep, 0 691552463 Problem Leg edema R60.0 Active 973963929 Problem Wheelchair dependent Z99.3 Active 233933765 Problem Morbid obesity E66.01 Active 59412 6002 Problem Panlobular emphysema J43.1 Active 0867887 Problem Iron deficiency anemia secondary to inad equate dietary iron intake 280.1 Jun, 0 434985724 Problem Essential (primary) hypertension I10 Active 41375438 Problem Syncope and collapse 780.2 Jun, 0 020183736 Problem Morbid obesity 278.01 May, 0 23 2261353 Problem Primary osteoarthritis involving multiple joints M 15.0 Active 591907411 Problem 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 E11.42 Active 754425369 Problem Chronic systolic congestive heart failure I50.22 Active 032941211 Problem Anemia of chronic disease D63.8 Acti ve [id number] ALLERGIES No Information ENCOUNTERS Encounter Location Date Diagnosis [address] [address] Nov, [address] [address] Nov, [address] [address] Nov, [address] [address] Oct, [address] [address] Oct, [address] [address] Oct, Chronic systolic congestive heart failur e I50.22 ; Elevated cholesterol E78.00 ; Anemia of chronic disease D63.8 ; Leg edema R60.0 ; Anemia due to blood loss D50.0 ; Current moderate episode of major depressive disorder F32.1 ; Diabetic polyneuropathy associated with type 2 diabetes mellitus E11.42 ; Essential (primary) hypertension I10 ; Morbid obesity E66.01 ; Panlobular emphysema J43.1 ; Primary osteoarthritis involving multiple joints M15.0 and Wheelchair dependent Z99.[address] [address] 14 Oct, 2018 Elevated cholesterol E78.00 ; Anemia due to blood loss D50.0 and Adalimumab (Humira) long-term use Z79.899 [facility] [address] [facility] [id number] [address] [place] [id number] Sep, [facility] [address] [facility] [id number] [address] [place] [id number] Aug, [facility] [address] [facility] [id number] [address] [place] [id number] Jul, [facility] [address] [facility] [id number] [address] [place] [phone] Jun, IMMUNIZATIONS No Known Immunizations SOCIAL HISTORY Never Assessed REASON FOR VISIT HYDROCODONE PLAN OF CARE VITAL SIGNS MEDICATIONS Medication Instructions Dosage Frequency Start Date End Date Duration S jovi Hydrocodone-Acetaminophen 5-325 MG Orally every 8 hrs PRN 1 tablet as needed Nov, 30 days Active RESULTS No Results PROCEDURES No Known procedures INSTRUCTIONS MEDICATIONS ADMINISTERED No Known Medications MEDICAL (GENERAL) HISTORY Type Description Date Medical History Chronic systolic congestive heart failur e Medical History Anemia of chronic disease Medical History Leg edema Medical History Current moderate episode of major depres sive disorder Medical History Diabetic polyneuropathy asso ciated with type 2 diabetes mellitus Medical History Essential (primary) hypertension Medical History Morbid obesity Medical History Panlobular emphysema Medical History Primary osteoarthritis involving multipl e joints Medical History Wheelchair dependent
--- OUTSIDE RECORDS SUMMARY | 2020-03-01 12:39 | XMS REPORT | Continuity of Care Document ---
Author Organization Unknown Address Unknown Phone Unavailable Allergies Active Description Code Type Severity Reaction Onset Reported/Identified Relationship to Patient Clinical Status Yes latex [id number] Drug Allergy Unknown N/A 09/01/2007 Medications There is no data. Problems Date Dx Coded Attending Type Code Diagnosis Diagnosed By 10/02/2017 DELIA ADAMS MD, Ot A41.89 OTHER SPECIFIED SEPSIS 10/02/2017 DELIA ADAMS MD, Ot D50 .9 IRON DEFICIENCY ANEMIA, UNSPECIFIED 10/02/2017 DELIA ADAMS MD Ot E11 .9 TYPE 2 DIABETES MELLITUS WITHOUT COMPLIC 10/02/2017 DELIA ADAMS MD Ot E66.01 MORBID (SEVERE) OBESITY DUE TO EXCESS CA 10/02/2017 DELIA ADAMS MD Ot E87 .2 ACIDOSIS 10/02/2017 DELIA ADAMS MD Ot E87 .6 HYPOKALEMIA 10/02/2017 DELIA ADAMS MD Ot I11 .0 HYPERTENSIVE HEART DISEASE WITH HEART FA 10/02/2017 DELIA ADAMS MD Ot I50.30 UNSPECIFIED DIASTOLIC (CONGESTIVE) HEART 10/02/2017 DELIA ADAMS MD Ot J11.00 FLU DUE TO UNIDENTIFIED FLU VIRUS W UNSP 10/02/2017 DELIA ADAMS MD Ot J45.909 UNSPECIFIED ASTHMA, UNCOMPLICATED 10/02/2017 DELIA ADAMS MD Ot J96.02 ACUTE RESPIRATORY FAILURE WITH HYPERCAPN 10/02/2017 DELIA ADAMS MD Ot N17 .9 ACUTE KIDNEY FAILURE, UNSPECIFIED 10/02/2017 DELIA ADAMS MD Ot R65.21 SEVERE SEPSIS WITH SEPTIC SHOCK 10/02/2017 DELIA ADAMS MD Ot Z68.42 BODY MASS INDEX (BMI) 45.0-49.9, ADULT 10/02/2017 DELIA ADAMS MD Ot Z79 .4 BOILER ROOM OPERATOR (CURRENT) USE OF INSULIN 10/02/2017 DELIA ADAMS MD Ot A41.89 OTHER SPECIFIED SEPSIS 10/02/2017 DELIA ADAMS MD Ot D50 .9 IRON DEFICIENCY ANEMIA, UNSPECIFIED 10/02/2017 DELIA ADAMS MD, Ot E11 .9 TYPE 2 DIABETES MELLITUS WITHOUT COMPLIC 10/02/2017 DELIA ADAMS MD Ot E66.01 MORBID (SEVERE) OBESITY DUE TO EXCESS CA 10/02/2017 DELIA ADAMS MD Ot E87 .2 ACIDOSIS 10/02/2017 DELIA ADAMS MD Ot E87 .6 HYPOKALEMIA 10/02/2017 DELIA ADAMS MD Ot I11 .0 HYPERTENSIVE HEART DISEASE WITH HEART FA 10/02/2017 DELIA ADAMS MD Ot I50.30 UNSPECIFIED DIASTOLIC (CONGESTIVE) HEART 10/02/2017 DELIA ADAMS MD Ot J11.00 FLU DUE TO UNIDENTIFIED FLU VIRUS W UNSP 10/02/2017 DELIA ADAMS MD Ot J45.909 UNSPECIFIED ASTHMA, UNCOMPLICATED 10/02/2017 DELIA ADAMS MD Ot J96.02 ACUTE RESPIRATORY FAILURE WITH HYPERCAPN 10/02/2017 DELIA ADAMS MD Ot N17 .9 ACUTE KIDNEY FAILURE, UNSPECIFIED 10/02/2017 DELIA ADAMS MD Ot R65.21 SEVERE SEPSIS WITH SEPTIC SHOCK 10/02/2017 DELIA ADAMS MD Ot Z68.42 BODY MASS INDEX (BMI) 45.0-49.9, ADULT 10/02/2017 DELIA ADAMS MD Ot Z79 .4 PENITENTIARY (CURRENT) USE OF INSULIN 10/03/2017 DELIA ADAMS MD Ot A41.89 OTHER SPECIFIED SEPSIS 10/03/2017 DELIA ADAMS MD Ot D50 .9 IRON DEFICIENCY ANEMIA, UNSPECIFIED 10/03/2017 DELIA ADAMS MD Ot E11 .9 TYPE 2 DIABETES MELLITUS WITHOUT COMPLIC 10/03/2017 DELIA ADAMS MD Ot E66.01 MORBID (SEVERE) OBESITY DUE TO EXCESS CA 10/03/2017 DELIA ADAMS MD Ot E87 .2 ACIDOSIS 10/03/2017 DELIA ADAMS MD Ot E87 .6 HYPOKALEMIA 10/03/2017 DELIA ADAMS MD Ot I11 .0 HYPERTENSIVE HEART DISEASE WITH HEART FA 10/03/2017 DELIA ADAMS MD Ot I50.30 UNSPECIFIED DIASTOLIC (CONGESTIVE) HEART 10/03/2017 DELIA ADAMS MD Ot J11.00 FLU DUE TO UNIDENTIFIED FLU VIRUS W UNSP 10/03/2017 DELIA ADAMS MD Ot J45.909 UNSPECIFIED ASTHMA, UNCOMPLICATED 10/03/2017 DELIA ADAMS MD Ot J96.02 ACUTE RESPIRATORY FAILURE WITH HYPERCAPN 10/03/2017 DELIA ADAMS MD Ot N17 .9 ACUTE KIDNEY FAILURE, UNSPECIFIED 10/03/2017 DELIA ADAMS MD Ot R65.21 SEVERE SEPSIS WITH SEPTIC SHOCK 10/03/2017 DELIA ADAMS MD Ot Z68.42 BODY MASS INDEX (BMI) 45.0-49.9, ADULT 10/03/2017 DELIA ADAMS MD Ot Z79 .4 PENITENTIARY (CURRENT) USE OF INSULIN 10/04/2017 DELIA ADAMS MD Ot A41.89 OTHER SPECIFIED SEPSIS 10/04/2017 DELIA ADAMS MD Ot D50 .9 IRON DEFICIENCY ANEMIA, UNSPECIFIED 10/04/2017 DELIA ADAMS MD Ot E11 .9 TYPE 2 DIABETES MELLITUS WITHOUT COMPLIC 10/04/2017 DELIA ADAMS MD Ot E66.01 MORBID (SEVERE) OBESITY DUE TO EXCESS CA 10/04/2017 DELIA ADAMS MD Ot E87 .2 ACIDOSIS 10/04/2017 DELIA ADAMS MD Ot E87 .6 HYPOKALEMIA 10/04/2017 DELIA ADAMS MD Ot I11 .0 HYPERTENSIVE HEART DISEASE WITH HEART FA 10/04/2017 DELIA ADAMS MD Ot I50.30 UNSPECIFIED DIASTOLIC (CONGESTIVE) HEART 10/04/2017 DELIA ADAMS MD Ot J11.00 FLU DUE TO UNIDENTIFIED FLU VIRUS W UNSP 10/04/2017 DELIA ADAMS MD Ot J45.909 UNSPECIFIED ASTHMA, UNCOMPLICATED 10/04/2017 DELIA ADAMS MD Ot J96.02 ACUTE RESPIRATORY FAILURE WITH HYPERCAPN 10/04/2017 DELIA ADAMS MD Ot N17 .9 ACUTE KIDNEY FAILURE, UNSPECIFIED 10/04/2017 DELIA ADAMS MD Ot R65.21 SEVERE SEPSIS WITH SEPTIC SHOCK 10/04/2017 DELIA ADAMS MD Ot Z68.42 BODY MASS INDEX (BMI) 45.0-49.9, ADULT 10/04/2017 DELIA ADAMS MD Ot Z79 .4 PENITENTIARY (CURRENT) USE OF INSULIN 10/04/2017 DELIA ADAMS MD Ot A41.89 OTHER SPECIFIED SEPSIS 10/04/2017 DELIA ADAMS MD Ot D50 .9 IRON DEFICIENCY ANEMIA, UNSPECIFIED 10/04/2017 DELIA ADAMS MD Ot E11 .9 TYPE 2 DIABETES MELLITUS WITHOUT COMPLIC 10/04/2017 DELIA ADAMS MD Ot E66.01 MORBID (SEVERE) OBESITY DUE TO EXCESS CA 10/04/2017 DELIA ADAMS MD Ot E87 .2 ACIDOSIS 10/04/2017 DELIA ADAMS MD Ot E87 .6 HYPOKALEMIA 10/04/2017 DELIA ADAMS MD Ot I11 .0 HYPERTENSIVE HEART DISEASE WITH HEART FA 10/04/2017 DELIA ADAMS MD Ot I50.30 UNSPECIFIED DIASTOLIC (CONGESTIVE) HEART 10/04/2017 DELIA ADAMS MD Ot J11.00 FLU DUE TO UNIDENTIFIED FLU VIRUS W UNSP 10/04/2017 DELIA ADAMS MD Ot J45.909 UNSPECIFIED ASTHMA, UNCOMPLICATED 10/04/2017 DELIA ADAMS MD Ot J96.02 ACUTE RESPIRATORY FAILURE WITH HYPERCAPN 10/04/2017 DELIA ADAMS MD Ot N17 .9 ACUTE KIDNEY FAILURE, UNSPECIFIED 10/04/2017 DELIA ADAMS MD Ot R65.21 SEVERE SEPSIS WITH SEPTIC SHOCK 10/04/2017 DELIA ADAMS MD Ot Z68.42 BODY MASS INDEX (BMI) 45.0-49.9, ADULT 10/04/2017 DELIA ADAMS MD Ot Z79 .4 PENITENTIARY (CURRENT) USE OF INSULIN 10/04/2017 DELIA ADAMS MD Ot A41.89 OTHER SPECIFIED SEPSIS 10/04/2017 DELIA ADAMS MD Ot D50 .9 IRON DEFICIENCY ANEMIA, UNSPECIFIED 10/04/2017 DELIA ADAMS MD Ot E11 .9 TYPE 2 DIABETES MELLITUS WITHOUT COMPLIC 10/04/2017 DELIA ADAMS MD Ot E66.01 MORBID (SEVERE) OBESITY DUE TO EXCESS CA 10/04/2017 DELIA ADAMS MD Ot E83.42 HYPOMAGNESEMIA 10/04/2017 DELIA ADAMS MD Ot E87 .2 ACIDOSIS 10/04/2017 DELIA ADAMS MD Ot E87 .6 HYPOKALEMIA 10/04/2017 DELIA ADAMS MD Ot I11 .0 HYPERTENSIVE HEART DISEASE WITH HEART FA 10/04/2017 DELIA ADAMS MD Ot I50.30 UNSPECIFIED DIASTOLIC (CONGESTIVE) HEART 10/04/2017 DELIA ADAMS MD Ot J10.00 FLU DUE TO OTH IDENT FLU VIRUS W UNSP TY 10/04/2017 DELIA ADAMS MD Ot J20 .9 ACUTE BRONCHITIS, UNSPECIFIED 10/04/2017 DELIA ADAMS MD Ot J45.909 UNSPECIFIED ASTHMA, UNCOMPLICATED 10/04/2017 DELIA ADAMS MD Ot J96.02 ACUTE RESPIRATORY FAILURE WITH HYPERCAPN 10/04/2017 DELIA ADAMS MD Ot N17 .9 ACUTE KIDNEY FAILURE, UNSPECIFIED 10/04/2017 DELIA ADAMS MD Ot R65.21 SEVERE SEPSIS WITH SEPTIC SHOCK 10/04/2017 DELIA ADAMS MD Ot Z68.42 BODY MASS INDEX (BMI) 45.0-49.9, ADULT 10/04/2017 DELIA ADAMS MD Ot Z79 .4 BOILER ROOM OPERATOR (CURRENT) USE OF INSULIN 10/05/2017 DELIA ADAMS MD Ot A41.89 OTHER SPECIFIED SEPSIS 10/05/2017 DELIA ADAMS MD Ot D50 .9 IRON DEFICIENCY ANEMIA, UNSPECIFIED 10/05/2017 DELIA ADAMS MD Ot E11 .9 TYPE 2 DIABETES MELLITUS WITHOUT COMPLIC 10/05/2017 DELIA ADAMS MD Ot E66.01 MORBID (SEVERE) OBESITY DUE TO EXCESS CA 10/05/2017 DELIA ADAMS MD Ot E83.42 HYPOMAGNESEMIA 10/05/2017 DELIA ADAMS MD Ot E87 .2 ACIDOSIS 10/05/2017 DELIA ADAMS MD Ot E87 .6 HYPOKALEMIA 10/05/2017 DELIA ADAMS MD Ot I11 .0 HYPERTENSIVE HEART DISEASE WITH HEART FA 10/05/2017 DELIA ADAMS MD Ot I50.30 UNSPECIFIED DIASTOLIC (CONGESTIVE) HEART 10/05/2017 DELIA ADAMS MD Ot J10.00 FLU DUE TO OTH IDENT FLU VIRUS W UNSP TY 10/05/2017 DELIA ADAMS MD Ot J20 .9 ACUTE BRONCHITIS, UNSPECIFIED 10/05/2017 DELIA ADAMS MD Ot J45.909 UNSPECIFIED ASTHMA, UNCOMPLICATED 10/05/2017 DELIA ADAMS MD Ot J96.02 ACUTE RESPIRATORY FAILURE WITH HYPERCAPN 10/05/2017 DELIA ADAMS MD Ot N17 .9 ACUTE KIDNEY FAILURE, UNSPECIFIED 10/05/2017 DELIA ADAMS MD Ot R65.21 SEVERE SEPSIS WITH SEPTIC SHOCK 10/05/2017 DELIA ADAMS MD Ot Z68.42 BODY MASS INDEX (BMI) 45.0-49.9, ADULT 10/05/2017 DELIA ADAMS MD Ot Z79 .4 PENITENTIARY (CURRENT) USE OF INSULIN 10/05/2017 DELIA ADAMS MD Ot A41.89 OTHER SPECIFIED SEPSIS 10/05/2017 DELIA ADAMS MD Ot D50 .9 IRON DEFICIENCY ANEMIA, UNSPECIFIED 10/05/2017 DELIA ADAMS MD Ot E11 .9 TYPE 2 DIABETES MELLITUS WITHOUT COMPLIC 10/05/2017 DELIA ADAMS MD Ot E66.01 MORBID (SEVERE) OBESITY DUE TO EXCESS CA 10/05/2017 DELIA ADAMS MD Ot E83.42 HYPOMAGNESEMIA 10/05/2017 DELIA ADAMS MD Ot E87 .2 ACIDOSIS 10/05/2017 DELIA ADAMS MD Ot E87 .6 HYPOKALEMIA 10/05/2017 DELIA ADAMS MD Ot I11 .0 HYPERTENSIVE HEART DISEASE WITH HEART FA 10/05/2017 DELIA ADAMS MD Ot I50.30 UNSPECIFIED DIASTOLIC (CONGESTIVE) HEART 10/05/2017 DELIA ADAMS MD Ot J10.00 FLU DUE TO OTH IDENT FLU VIRUS W UNSP TY 10/05/2017 DELIA ADAMS MD Ot J20 .9 ACUTE BRONCHITIS, UNSPECIFIED 10/05/2017 DELIA ADAMS MD Ot J45.909 UNSPECIFIED ASTHMA, UNCOMPLICATED 10/05/2017 DELIA ADAMS MD Ot J96.02 ACUTE RESPIRATORY FAILURE WITH HYPERCAPN 10/05/2017 DELIA ADAMS MD Ot N17 .9 ACUTE KIDNEY FAILURE, UNSPECIFIED 10/05/2017 DELIA ADAMS MD Ot R65.21 SEVERE SEPSIS WITH SEPTIC SHOCK 10/05/2017 DELIA ADAMS MD Ot Z68.42 BODY MASS INDEX (BMI) 45.0-49.9, ADULT 10/05/2017 DELIA ADAMS MD Ot Z79 .4 BOILER ROOM OPERATOR (CURRENT) USE OF INSULIN 10/05/2017 DELIA ADAMS MD Ot A41.89 OTHER SPECIFIED SEPSIS 10/05/2017 DELIA ADAMS MD Ot D50 .9 IRON DEFICIENCY ANEMIA, UNSPECIFIED 10/05/2017 DELIA ADAMS MD Ot E11 .9 TYPE 2 DIABETES MELLITUS WITHOUT COMPLIC 10/05/2017 DELIA ADAMS MD Ot E66.01 MORBID (SEVERE) OBESITY DUE TO EXCESS CA 10/05/2017 DELIA ADAMS MD Ot E83.42 HYPOMAGNESEMIA 10/05/2017 DELIA ADAMS MD Ot E87 .2 ACIDOSIS 10/05/2017 DELIA ADAMS MD Ot E87 .6 HYPOKALEMIA 10/05/2017 DELIA ADAMS MD Ot I11 .0 HYPERTENSIVE HEART DISEASE WITH HEART FA 10/05/2017 DELIA ADAMS MD Ot I50.30 UNSPECIFIED DIASTOLIC (CONGESTIVE) HEART 10/05/2017 DELIA ADAMS MD Ot J10.00 FLU DUE TO OTH IDENT FLU VIRUS W UNSP TY 10/05/2017 DELIA ADAMS MD Ot J20 .9 ACUTE BRONCHITIS, UNSPECIFIED 10/05/2017 DELIA ADAMS MD Ot J45.909 UNSPECIFIED ASTHMA, UNCOMPLICATED 10/05/2017 DELIA ADAMS MD Ot J96.02 ACUTE RESPIRATORY FAILURE WITH HYPERCAPN 10/05/2017 DELIA ADAMS MD Ot N17 .9 ACUTE KIDNEY FAILURE, UNSPECIFIED 10/05/2017 DELIA ADAMS MD Ot R65.21 SEVERE SEPSIS WITH SEPTIC SHOCK 10/05/2017 DELIA ADAMS MD Ot Z68.42 BODY MASS INDEX (BMI) 45.0-49.9, ADULT 10/05/2017 DELIA ADAMS MD Ot Z79 .4 PENITENTIARY (CURRENT) USE OF INSULIN 10/06/2017 DELIA ADAMS MD Ot A41.89 OTHER SPECIFIED SEPSIS 10/06/2017 DELIA ADAMS MD Ot D50 .9 IRON DEFICIENCY ANEMIA, UNSPECIFIED 10/06/2017 DELIA ADAMS MD Ot E11 .9 TYPE 2 DIABETES MELLITUS WITHOUT COMPLIC 10/06/2017 DELIA ADAMS MD Ot E66.01 MORBID (SEVERE) OBESITY DUE TO EXCESS CA 10/06/2017 DELIA ADAMS MD Ot E83.42 HYPOMAGNESEMIA 10/06/2017 DELIA ADAMS MD Ot E87 .2 ACIDOSIS 10/06/2017 DELIA ADAMS MD Ot E87 .6 HYPOKALEMIA 10/06/2017 DELIA ADAMS MD Ot I11 .0 HYPERTENSIVE HEART DISEASE WITH HEART FA 10/06/2017 DELIA ADAMS MD Ot I50.30 UNSPECIFIED DIASTOLIC (CONGESTIVE) HEART 10/06/2017 DELIA ADAMS MD Ot J10.00 FLU DUE TO OTH IDENT FLU VIRUS W UNSP TY 10/06/2017 DELIA ADAMS MD Ot J20 .9 ACUTE BRONCHITIS, UNSPECIFIED 10/06/2017 DELIA ADAMS MD Ot J45.909 UNSPECIFIED ASTHMA, UNCOMPLICATED 10/06/2017 DELIA ADAMS MD Ot J96.02 ACUTE RESPIRATORY FAILURE WITH HYPERCAPN 10/06/2017 DELIA ADAMS MD Ot N17 .9 ACUTE KIDNEY FAILURE, UNSPECIFIED 10/06/2017 DELIA ADAMS MD Ot R65.21 SEVERE SEPSIS WITH SEPTIC SHOCK 10/06/2017 DELIA ADAMS MD Ot Z68.42 BODY MASS INDEX (BMI) 45.0-49.9, ADULT 10/06/2017 DELIA ADAMS MD Ot Z79 .4 BOILER ROOM OPERATOR (CURRENT) USE OF INSULIN 10/07/2017 DELIA ADAMS MD Ot A41.89 OTHER SPECIFIED SEPSIS 10/07/2017 DELIA ADAMS MD Ot D50 .9 IRON DEFICIENCY ANEMIA, UNSPECIFIED 10/07/2017 DELIA ADAMS MD Ot E11 .9 TYPE 2 DIABETES MELLITUS WITHOUT COMPLIC 10/07/2017 DELIA ADAMS MD Ot E66.01 MORBID (SEVERE) OBESITY DUE TO EXCESS CA 10/07/2017 DELIA ADAMS MD Ot E83.42 HYPOMAGNESEMIA 10/07/2017 DELIA ADAMS MD Ot E87 .2 ACIDOSIS 10/07/2017 DELIA ADAMS MD Ot E87 .6 HYPOKALEMIA 10/07/2017 DELIA ADAMS MD Ot I11 .0 HYPERTENSIVE HEART DISEASE WITH HEART FA 10/07/2017 DELIA ADAMS MD Ot I50.30 UNSPECIFIED DIASTOLIC (CONGESTIVE) HEART 10/07/2017 DELIA ADAMS MD Ot J10.00 FLU DUE TO OTH IDENT FLU VIRUS W UNSP TY 10/07/2017 DELIA ADAMS MD Ot J20 .9 ACUTE BRONCHITIS, UNSPECIFIED 10/07/2017 DELIA ADAMS MD Ot J45.909 UNSPECIFIED ASTHMA, UNCOMPLICATED 10/07/2017 DELIA ADAMS MD Ot J96.02 ACUTE RESPIRATORY FAILURE WITH HYPERCAPN 10/07/2017 DELIA ADAMS MD Ot N17 .9 ACUTE KIDNEY FAILURE, UNSPECIFIED 10/07/2017 DELIA ADAMS MD Ot R65.21 SEVERE SEPSIS WITH SEPTIC SHOCK 10/07/2017 DELIA ADAMS MD Ot Z68.42 BODY MASS INDEX (BMI) 45.0-49.9, ADULT 10/07/2017 DELIA ADAMS MD Ot Z79 .4 PENITENTIARY (CURRENT) USE OF INSULIN 10/08/2017 DELIA ADAMS MD Ot A41.89 OTHER SPECIFIED SEPSIS 10/08/2017 DELIA ADAMS MD Ot D50 .9 IRON DEFICIENCY ANEMIA, UNSPECIFIED 10/08/2017 DELIA ADAMS MD Ot E11 .9 TYPE 2 DIABETES MELLITUS WITHOUT COMPLIC 10/08/2017 DELIA ADAMS MD Ot E66.01 MORBID (SEVERE) OBESITY DUE TO EXCESS CA 10/08/2017 DELIA ADAMS MD Ot E83.42 HYPOMAGNESEMIA 10/08/2017 DELIA ADAMS MD Ot E87 .2 ACIDOSIS 10/08/2017 DELIA ADAMS MD Ot E87 .6 HYPOKALEMIA 10/08/2017 DELIA ADAMS MD Ot I11 .0 HYPERTENSIVE HEART DISEASE WITH HEART FA 10/08/2017 DELIA ADAMS MD Ot I50.30 UNSPECIFIED DIASTOLIC (CONGESTIVE) HEART 10/08/2017 DELIA ADAMS MD Ot J10.00 FLU DUE TO OTH IDENT FLU VIRUS W UNSP TY 10/08/2017 DELIA ADAMS MD Ot J20 .9 ACUTE BRONCHITIS, UNSPECIFIED 10/08/2017 DELIA ADAMS MD Ot J45.909 UNSPECIFIED ASTHMA, UNCOMPLICATED 10/08/2017 DELIA ADAMS MD Ot J96.02 ACUTE RESPIRATORY FAILURE WITH HYPERCAPN 10/08/2017 DELIA ADAMS MD Ot N17 .9 ACUTE KIDNEY FAILURE, UNSPECIFIED 10/08/2017 DELIA ADAMS MD Ot R65.21 SEVERE SEPSIS WITH SEPTIC SHOCK 10/08/2017 DELIA ADAMS MD Ot Z68.42 BODY MASS INDEX (BMI) 45.0-49.9, ADULT 10/08/2017 DELIA ADAMS MD Ot Z79 .4 PENITENTIARY (CURRENT) USE OF INSULIN 10/08/2017 DELIA ADAMS MD Ot A41.89 OTHER SPECIFIED SEPSIS 10/08/2017 DELIA ADAMS MD Ot D50 .9 IRON DEFICIENCY ANEMIA, UNSPECIFIED 10/08/2017 DELIA ADAMS MD Ot E11 .9 TYPE 2 DIABETES MELLITUS WITHOUT COMPLIC 10/08/2017 DELIA ADAMS MD Ot E66.01 MORBID (SEVERE) OBESITY DUE TO EXCESS CA 10/08/2017 DELIA ADAMS MD Ot E83.42 HYPOMAGNESEMIA 10/08/2017 DELIA ADAMS MD Ot E87 .2 ACIDOSIS 10/08/2017 DELIA ADAMS MD Ot E87 .6 HYPOKALEMIA 10/08/2017 DELIA ADAMS MD Ot H91.10 PRESBYCUSIS, UNSPECIFIED EAR 10/08/2017 DELIA ADAMS MD Ot I11 .0 HYPERTENSIVE HEART DISEASE WITH HEART FA 10/08/2017 DELIA ADAMS MD Ot I50.30 UNSPECIFIED DIASTOLIC (CONGESTIVE) HEART 10/08/2017 DELIA ADAMS MD Ot J10.00 FLU DUE TO OTH IDENT FLU VIRUS W UNSP TY 10/08/2017 DELIA ADAMS MD Ot J20 .9 ACUTE BRONCHITIS, UNSPECIFIED 10/08/2017 DELIA ADAMS MD Ot J45.909 UNSPECIFIED ASTHMA, UNCOMPLICATED 10/08/2017 DELIA ADAMS MD Ot J96.02 ACUTE RESPIRATORY FAILURE WITH HYPERCAPN 10/08/2017 DELIA ADAMS MD Ot N17 .9 ACUTE KIDNEY FAILURE, UNSPECIFIED 10/08/2017 DELIA ADAMS MD Ot R65.21 SEVERE SEPSIS WITH SEPTIC SHOCK 10/08/2017 DELIA ADAMS MD Ot Z68.42 BODY MASS INDEX (BMI) 45.0-49.9, ADULT 10/08/2017 DELIA ADAMS MD Ot Z79 .4 PENITENTIARY (CURRENT) USE OF INSULIN 10/22/2017 DELIA ADAMS MD Ot A41.89 OTHER SPECIFIED SEPSIS 10/22/2017 DELIA ADAMS MD Ot D50 .9 IRON DEFICIENCY ANEMIA, UNSPECIFIED 10/22/2017 DELIA ADAMS MD Ot E11 .9 TYPE 2 DIABETES MELLITUS WITHOUT COMPLIC 10/22/2017 DELIA ADAMS MD Ot E66.01 MORBID (SEVERE) OBESITY DUE TO EXCESS CA 10/22/2017 DELIA ADAMS MD Ot E83.42 HYPOMAGNESEMIA 10/22/2017 DELIA ADAMS MD Ot E87 .2 ACIDOSIS 10/22/2017 DELIA ADAMS MD Ot E87 .6 HYPOKALEMIA 10/22/2017 DELIA ADAMS MD Ot H91.10 PRESBYCUSIS, UNSPECIFIED EAR 10/22/2017 DELIA ADAMS MD Ot I11 .0 HYPERTENSIVE HEART DISEASE WITH HEART FA 10/22/2017 DELIA ADAMS MD Ot I50.30 UNSPECIFIED DIASTOLIC (CONGESTIVE) HEART 10/22/2017 DELIA ADAMS MD Ot J10.00 FLU DUE TO OTH IDENT FLU VIRUS W UNSP TY 10/22/2017 DELIA ADAMS MD Ot J20 .9 ACUTE BRONCHITIS, UNSPECIFIED 10/22/2017 DELIA ADAMS MD Ot J45.909 UNSPECIFIED ASTHMA, UNCOMPLICATED 10/22/2017 DELIA ADAMS MD Ot J96.02 ACUTE RESPIRATORY FAILURE WITH HYPERCAPN 10/22/2017 DELIA ADAMS MD Ot N17 .9 ACUTE KIDNEY FAILURE, UNSPECIFIED 10/22/2017 DELIA ADAMS MD Ot R65.21 SEVERE SEPSIS WITH SEPTIC SHOCK 10/22/2017 DELIA ADAMS MD Ot Z68.42 BODY MASS INDEX (BMI) 45.0-49.9, ADULT 10/22/2017 DELIA ADAMS MD Ot Z79 .4 BOILER ROOM OPERATOR (CURRENT) USE OF INSULIN 10/22/2017 DELIA ADAMS MD Ot A41.89 OTHER SPECIFIED SEPSIS 10/22/2017 DELIA ADAMS MD Ot D50 .9 IRON DEFICIENCY ANEMIA, UNSPECIFIED 10/22/2017 DELIA ADAMS MD Ot E11 .9 TYPE 2 DIABETES MELLITUS WITHOUT COMPLIC 10/22/2017 DELIA ADAMS MD Ot E66.01 MORBID (SEVERE) OBESITY DUE TO EXCESS CA 10/22/2017 DELIA ADAMS MD Ot E83.42 HYPOMAGNESEMIA 10/22/2017 DELIA ADAMS MD Ot E87 .2 ACIDOSIS 10/22/2017 DELIA ADAMS MD Ot E87 .6 HYPOKALEMIA 10/22/2017 DELIA ADAMS MD Ot H91.10 PRESBYCUSIS, UNSPECIFIED EAR 10/22/2017 DELIA ADAMS MD Ot I11 .0 HYPERTENSIVE HEART DISEASE WITH HEART FA 10/22/2017 DELIA ADAMS MD Ot I50.30 UNSPECIFIED DIASTOLIC (CONGESTIVE) HEART 10/22/2017 DELIA ADAMS MD Ot J10.00 FLU DUE TO OTH IDENT FLU VIRUS W UNSP TY 10/22/2017 DELIA ADAMS MD Ot J20 .9 ACUTE BRONCHITIS, UNSPECIFIED 10/22/2017 DELIA ADAMS MD Ot J45.909 UNSPECIFIED ASTHMA, UNCOMPLICATED 10/22/2017 DELIA ADAMS MD Ot J96.02 ACUTE RESPIRATORY FAILURE WITH HYPERCAPN 10/22/2017 DELIA ADAMS MD Ot N17 .9 ACUTE KIDNEY FAILURE, UNSPECIFIED 10/22/2017 DELIA ADAMS MD Ot R65.21 SEVERE SEPSIS WITH SEPTIC SHOCK 10/22/2017 DELIA ADAMS MD Ot Z68.42 BODY MASS INDEX (BMI) 45.0-49.9, ADULT 10/22/2017 DELIA ADAMS MD Ot Z79 .4 BOILER ROOM OPERATOR (CURRENT) USE OF INSULIN Procedures Code Description Performed By Per doreen On [id number] IN SERTION OF INFUSION DEV INTO SUP VENA 09/30/2017 [id number] RE SPIRATORY VENTILATION, LESS THAN 24 CO 10/01/2017 [id number] RE SPIRATORY VENTILATION, 24- 96 CONSECUTI 10/01/2017 Results Test Result Range Arterial blood gas measurement - 8 21:23 Blood pCO2 41 mm[Hg] 35-45 Blood pO2 90 mm[Hg] 79-93 Arterial blood bicarbonate measurement (moles/volume) 18 mmol/L 23-27 Arterial blood base excess by calculation -7.9 mmo l/L -2.5-2.5 Arterial blood oxygen saturation measurement 95 % 94-100 * Inhaled oxygen flow rate 40% BIPAP NR G Arterial blood pH measurement with patient temperature correction 7.26 7.37-7.43 Arterial blood carbon dioxide, total measurement (mole s/volume) 19.0 mmol/L 21.0-31.0 Body site LEFT RADIAL NRG Assessment of wrist artery patency prior to arterial p uncture POSITIVE NRG Setting of ventilation mode NO NR G Measurement of body temperature 98.5 NRG Complete urinalysis with reflex to cultu re - 09/30/17 21:45 Urine color determination YELLOW NRG Urine clarity determination CLEAR NR G Urine pH measurement by test strip 5 5-9 Specific gravity of urine by test strip 1.020 1.016-1.022 Urine protein assay by test strip, semi-quantitative 2+ NEGATIVE Urine glucose detection by automated test strip NE GATIVE NEGATIVE Erythrocytes detection in urine sediment by light micr oscopy NEGATIVE NEGATIVE Urine ketones detection by automated test strip NE GATIVE NEGATIVE Urine nitrite detection by test strip NEGATIVE NEGATIVE Urine total bilirubin detection by test strip NEGA TIVE NEGATIVE Urine urobilinogen measurement by automated test strip (mass/volume) NORMAL NORMAL Urine leukocyte esterase detection by dipstick NEG ATIVE NEGATIVE Automated urine sediment erythrocyte cou nt by microscopy (number/high power field) NONE NRG Automated urine sediment leukocyte count by microscopy (number/high power field) RARE NRG Bacteria detection in urine sediment by light microsco py NEGATIVE NRG Crystals detection in urine sediment by light microsco py PRESENT NRG Casts detection in urine sediment by light microscopy NONE NRG Mucus detection in urine sediment by light microscopy SMALL NRG Complete urinalysis with reflex to culture NO NRG Amorphous sediment detection in urine sediment by ligh t microscopy MOD CHARLEE URATES NRG Arterial blood gas measurement - 8 23:50 Blood pCO2 48 mm[Hg] 35-45 Blood pO2 162 mm[Hg] 79-93 Arterial blood bicarbonate measurement (moles/volume) 17 mmol/L 23-27 Arterial blood base excess by calculation -9.7 mmo l/L -2.5-2.5 Arterial blood oxygen saturation measurement 97 % 94-100 * Inhaled oxygen flow rate 65 NRG Arterial blood pH measurement with patient temperature correction 7.18 7.37-7.43 Arterial blood carbon dioxide, total measurement (mole s/volume) 18.7 mmol/L 21.0-31.0 Body site R RAD NRG Assessment of wrist artery patency prior to arterial p uncture YES-POS NRG Setting of ventilation mode NO NR G Measurement of body temperature 98.4 NRG Sputum Gram stain - 10/01/17 00:50 Sputum Gram stain resembling strep NRG Bacterial sputum culture - 10/01/17 00:5 0 FREE TEXT EX[facility]NAL [facility] NRG QUANTITY OF GROWTH Scant Growth NRG Bacterial sputum culture [id number] NRG Blood lactic acid measurement (moles/vol ume) - 10/01/17 01:15 Blood lactic acid measurement (moles/volume) 0.60 mmol/L 0.50-2.00 Whole blood basic metabolic panel - 06/10 01:15 Serum or plasma sodium measurement (moles/volume) 136 mmol/L 135-145 Serum or plasma potassium measurement (moles/volume) 3.2 mmol/L 3.6-5.0 Serum or plasma chloride measurement (moles/volume) 105 mmol/L 98-107 Carbon dioxide 14 mmol/L 21-32 Serum or plasma anion gap determination (moles/volume) 17 mmol/L 5-14 Serum or plasma urea nitrogen measurement (mass/volume ) 53 mg/dL 7-18 Serum or plasma creatinine measurement (mass/volume) 3.41 mg/dL 0.60-1.30 Serum or plasma urea nitrogen/creatinine mass ratio 16 NRG Serum or plasma creatinine measurement w ith calculation of estimated glomerular filtration rate 18 NRG Serum or plasma glucose measurement (mass/volume) 202 mg/dL 70-105 Serum or plasma calcium measurement (mass/volume) 7.2 mg/dL 8.5-10.1 Magnesium - 10/01/17 01:15 Magnesium 2.0 mg/dL 1.8-2.4 Serum or plasma lithium measurement (mol es/volume) - 10/01/17 01:15 BNP level 33.3 pg/mL <100.0 Serum or plasma troponin i.cardiac measu rement (mass/volume) - 10/01/17 01:15 Serum or plasma troponin i.cardiac measurement (mass/v olume) < ng/mL <0.30 Arterial blood gas measurement - 8 01:20 Blood pCO2 35 mm[Hg] 35-45 Blood pO2 80 mm[Hg] 79-93 Arterial blood bicarbonate measurement (moles/volume) 15 mmol/L 23-27 Arterial blood base excess by calculation -10.7 mm ol/L -2.5-2.5 Arterial blood oxygen saturation measurement 94 % 94-100 * Inhaled oxygen flow rate 60 NRG Arterial blood pH measurement with patient temperature correction 7.26 7.37-7.43 Arterial blood carbon dioxide, total measurement (mole s/volume) 16.1 mmol/L 21.0-31.0 Body site R RAD NRG Assessment of wrist artery patency prior to arterial p uncture YES-POS NRG Setting of ventilation mode YES NR G Measurement of body temperature 98.3 NRG Bacterial blood culture - 10/01/17 04:30 Bacterial blood culture NG NRG Complete blood count (CBC) with automate d white blood cell (WBC) differential - 10/01/17 04:35 Blood leukocytes automated count (number/volume) 19.9 10*3/uL 4.3-11.0 Blood erythrocytes automated count (number/volume) 3.51 10*6/uL 4.35-5.85 Venous blood hemoglobin measurement (mass/volume) 8.2 g/dL 13.3-17.7 Blood hematocrit (volume fraction) 25 % 40-54 Automated erythrocyte mean corpuscular volume 72 [ foz_us] 80-99 Automated erythrocyte mean corpuscular h emoglobin (mass per erythrocyte) 23 pg 25-34 Automated erythrocyte mean corpuscular h emoglobin concentration measurement (mass/volume) 33 g/dL 32-36 Automated erythrocyte distribution width ratio 23. 8 % 10.0- 14.5 Automated blood platelet count (count/volume) 255 10*3/uL 130-400 Automated blood platelet mean volume measurement 9.5 [foz_us] 7.4-10.4 Automated blood neutrophils/100 leukocytes 84 % 42-75 Automated blood lymphocytes/100 leukocytes 12 % 12-44 Blood monocytes/100 leukocytes 4 % 0-12 Automated blood eosinophils/100 leukocytes 0 % 0-10 Automated blood basophils/100 leukocytes 0 % 0-10 Blood neutrophils automated count (number/volume) 16.7 10*3 1.8-7.8 Blood lymphocytes automated count (number/volume) 2.4 10*3 1.0-4.0 Blood monocytes automated count (number/volume) 0. 9 10*3 0.0-1.0 Automated eosinophil count 0.0 10*3/uL 0 .0-0.3 Automated blood basophil count (count/volume) 0.0 10*3/uL 0.0-0.1 Blood lactic acid measurement (moles/vol ume) - 10/01/17 04:35 Blood lactic acid measurement (moles/volume) 0.79 mmol/L 0.50-2.00 Whole blood basic metabolic panel - 06/10 04:35 Serum or plasma sodium measurement (moles/volume) 136 mmol/L 135-145 Serum or plasma potassium measurement (moles/volume) 3.3 mmol/L 3.6-5.0 Serum or plasma chloride measurement (moles/volume) 104 mmol/L 98-107 Carbon dioxide 14 mmol/L 21-32 Serum or plasma anion gap determination (moles/volume) 18 mmol/L 5-14 Serum or plasma urea nitrogen measurement (mass/volume ) 54 mg/dL 7-18 Serum or plasma creatinine measurement (mass/volume) 3.28 mg/dL 0.60-1.30 Serum or plasma urea nitrogen/creatinine mass ratio 16 NRG Serum or plasma creatinine measurement w ith calculation of estimated glomerular filtration rate 18 NRG Serum or plasma glucose measurement (mass/volume) 229 mg/dL 70-105 Serum or plasma calcium measurement (mass/volume) 7.1 mg/dL 8.5-10.1 Serum or plasma phosphate measurement (m ass/volume) - 10/01/17 04:35 Serum or plasma phosphate measurement (mass/volume) 5.1 mg/dL 2.3-4.7 Magnesium - 10/01/17 04:35 Magnesium 1.9 mg/dL 1.8-2.4 Blood manual differential performed dete ction - 10/01/17 04:35 Blood monocytes/100 leukocytes 5 % NRG Manual blood segmented neutrophils/100 leukocytes 78 % NRG Blood band neutrophils/100 leukocytes 4 % NRG Manual blood lymphocytes/100 leukocytes 13 % NRG Manual eosinophils/100 leukocytes in nose 0 % NRG Manual blood basophils/100 leukocytes 0 % NRG Blood polychromasia detection by light microscopy SLIGHT NRG Blood anisocytosis detection by light microscopy M ODERATE NRG Blood macrocytes detection by light microscopy MOD ERATE NRG Blood ovalocytes detection by light microscopy I [facility] NRG Blood poikilocytosis detection by light microscopy SLIGHT NRG Blood hypochromia detection by light microscopy MO DERATE NRG Blood microcytes detection by light microscopy SLI T NRG Blood target cells detection by light microscopy S LIGHT NRG Serum or plasma total bilirubin measurem ent (mass/volume) - 10/01/17 04:35 Serum or plasma total bilirubin measurement (mass/volu me) 0.4 mg/dL 0.1-1.0 Serum or plasma alkaline phosphatase jose daniel surement (enzymatic activity/volume) - 10/01/17 04:35 Serum or plasma alkaline phosphatase jose daniel surement (enzymatic activity/volume) 81 U/L 40-136 Serum or plasma aspartate aminotransfera se measurement (enzymatic activity/volume) - 10/01/17 04:35 Serum or plasma aspartate aminotransfera se measurement (enzymatic activity/volume) 50 U/L 5-34 Serum or plasma alanine aminotransferase measurement (enzymatic activity/volume) - 10/01/17 04:35 Serum or plasma alanine aminotransferase measurement (enzymatic activity/volume) 21 U/L 0-55 Serum or plasma albumin measurement (mas s/volume) - 10/01/17 04:35 Serum or plasma albumin measurement (mass/volume) 3.0 g/dL 3.2-4.5 Bacterial blood culture - 10/01/17 04:35 Bacterial blood culture NG NRG Arterial blood gas measurement - 8 04:40 Blood pCO2 28 mm[Hg] 35-45 Blood pO2 110 mm[Hg] 79-93 Arterial blood bicarbonate measurement (moles/volume) 15 mmol/L 23-27 Arterial blood base excess by calculation -10.0 mm ol/L -2.5-2.5 Arterial blood oxygen saturation measurement 97 % 94-100 * Inhaled oxygen flow rate 60% NRG Arterial blood pH measurement with patient temperature correction 7.33 7.37-7.43 Arterial blood carbon dioxide, total measurement (mole s/volume) 15.5 mmol/L 21.0-31.0 Body site R RAD NRG Assessment of wrist artery patency prior to arterial p uncture YES-POS NRG Setting of ventilation mode YES NR G Measurement of body temperature 98.9 NRG Capillary blood glucose measurement by g lucometer (mass/volume) - 10/01/17 12:37 Capillary blood glucose measurement by glucometer (mas s/volume) 250 mg/dL 70-110 Capillary blood glucose measurement by g lucometer (mass/volume) - 10/01/17 17:34 Capillary blood glucose measurement by glucometer (mas s/volume) 234 mg/dL 70-110 Capillary blood glucose measurement by g lucometer (mass/volume) - 10/01/17 23:47 Capillary blood glucose measurement by glucometer (mas s/volume) 189 mg/dL 70-110 Arterial blood gas measurement - 8 04:20 Blood pCO2 27 mm[Hg] 35-45 Blood pO2 51 mm[Hg] 79-93 Arterial blood bicarbonate measurement (moles/volume) 24 mmol/L 23-27 Arterial blood base excess by calculation 1.1 mmol /L -2.5-2.5 Arterial blood oxygen saturation measurement 89 % 94-100 * Inhaled oxygen flow rate 25% NRG Arterial blood pH measurement with patient temperature correction 7.55 7.37-7.43 Arterial blood carbon dioxide, total measurement (mole s/volume) 24.5 mmol/L 21.0-31.0 Body site R RAD NRG Assessment of wrist artery patency prior to arterial p uncture YES-POS NRG Setting of ventilation mode YES NR G Measurement of body temperature 96.7 NRG Complete blood count (CBC) with automate d white blood cell (WBC) differential - 10/02/17 04:29 Blood leukocytes automated count (number/volume) 12.9 10*3/uL 4.3-11.0 Blood erythrocytes automated count (number/volume) 4.00 10*6/uL 4.35-5.85 Venous blood hemoglobin measurement (mass/volume) 9.3 g/dL 13.3-17.7 Blood hematocrit (volume fraction) 28 % 40-54 Automated erythrocyte mean corpuscular volume 69 [ foz_us] 80-99 Automated erythrocyte mean corpuscular h emoglobin (mass per erythrocyte) 23 pg 25-34 Automated erythrocyte mean corpuscular h emoglobin concentration measurement (mass/volume) 34 g/dL 32-36 Automated erythrocyte distribution width ratio 23. 0 % 10.0- 14.5 Automated blood platelet count (count/volume) 283 10*3/uL 130-400 Automated blood platelet mean volume measurement 9.1 [foz_us] 7.4-10.4 Automated blood neutrophils/100 leukocytes 83 % 42-75 Automated blood lymphocytes/100 leukocytes 14 % 12-44 Blood monocytes/100 leukocytes 3 % 0-12 Automated blood eosinophils/100 leukocytes 0 % 0-10 Automated blood basophils/100 leukocytes 0 % 0-10 Blood neutrophils automated count (number/volume) 10.6 10*3 1.8-7.8 Blood lymphocytes automated count (number/volume) 1.7 10*3 1.0-4.0 Blood monocytes automated count (number/volume) 0. 4 10*3 0.0-1.0 Automated eosinophil count 0.0 10*3/uL 0 .0-0.3 Automated blood basophil count (count/volume) 0.0 10*3/uL 0.0-0.1 Whole blood basic metabolic panel - 09/23 04:29 Serum or plasma sodium measurement (moles/volume) 143 mmol/L 135-145 Serum or plasma potassium measurement (moles/volume) 3.5 mmol/L 3.6-5.0 Serum or plasma chloride measurement (moles/volume) 104 mmol/L 98-107 Carbon dioxide 23 mmol/L 21-32 Serum or plasma anion gap determination (moles/volume) 16 mmol/L 5-14 Serum or plasma urea nitrogen measurement (mass/volume ) 47 mg/dL 7-18 Serum or plasma creatinine measurement (mass/volume) 2.97 mg/dL 0.60-1.30 Serum or plasma urea nitrogen/creatinine mass ratio 16 NRG Serum or plasma creatinine measurement w ith calculation of estimated glomerular filtration rate 21 NRG Serum or plasma glucose measurement (mass/volume) 185 mg/dL 70-105 Serum or plasma calcium measurement (mass/volume) 7.8 mg/dL 8.5-10.1 Serum or plasma phosphate measurement (m ass/volume) - 10/02/17 04:29 Serum or plasma phosphate measurement (mass/volume) 3.4 mg/dL 2.3-4.7 Magnesium - 10/02/17 04:29 Magnesium 1.7 mg/dL 1.8-2.4 Arterial blood gas measurement - 8 07:15 Blood pCO2 35 mm[Hg] 35-45 Blood pO2 79 mm[Hg] 79-93 Arterial blood bicarbonate measurement (moles/volume) 26 mmol/L 23-27 Arterial blood base excess by calculation 2.2 mmol /L -2.5-2.5 Arterial blood oxygen saturation measurement 96 % 94-100 * Inhaled oxygen flow rate 40% NRG Arterial blood pH measurement with patient temperature correction 7.48 7.37-7.43 Arterial blood carbon dioxide, total measurement (mole s/volume) 27.2 mmol/L 21.0-31.0 Body site LT RAD NRG Assessment of wrist artery patency prior to arterial p uncture YES-POS NRG Setting of ventilation mode YES NR G Measurement of body temperature 94.7 NRG Capillary blood glucose measurement by g lucometer (mass/volume) - 10/02/17 11:33 Capillary blood glucose measurement by glucometer (mas s/volume) 173 mg/dL 70-110 Capillary blood glucose measurement by g lucometer (mass/volume) - 10/02/17 18:45 Capillary blood glucose measurement by glucometer (mas s/volume) 157 mg/dL 70-110 Capillary blood glucose measurement by g lucometer (mass/volume) - 10/02/17 23:59 Capillary blood glucose measurement by glucometer (mas s/volume) 153 mg/dL 70-110 Arterial blood gas measurement - 8 03:55 Blood pCO2 38 mm[Hg] 35-45 Blood pO2 79 mm[Hg] 79-93 Arterial blood bicarbonate measurement (moles/volume) 25 mmol/L 23-27 Arterial blood base excess by calculation 0.8 mmol /L -2.5-2.5 Arterial blood oxygen saturation measurement 95 % 94-100 * Inhaled oxygen flow rate 40% FIO2 NRG Arterial blood pH measurement with patient temperature correction 7.43 7.37-7.43 Arterial blood carbon dioxide, total measurement (mole s/volume) 26.0 mmol/L 21.0-31.0 Body site R RAD NRG Assessment of wrist artery patency prior to arterial p uncture YES-POS NRG Setting of ventilation mode YES NR G Measurement of body temperature 97.8 NRG Complete blood count (CBC) with automate d white blood cell (WBC) differential - 10/03/17 04:05 Blood leukocytes automated count (number/volume) 10.7 10*3/uL 4.3-11.0 Blood erythrocytes automated count (number/volume) 3.96 10*6/uL 4.35-5.85 Venous blood hemoglobin measurement (mass/volume) 9.2 g/dL 13.3-17.7 Blood hematocrit (volume fraction) 28 % 40-54 Automated erythrocyte mean corpuscular volume 71 [ foz_us] 80-99 Automated erythrocyte mean corpuscular h emoglobin (mass per erythrocyte) 23 pg 25-34 Automated erythrocyte mean corpuscular h emoglobin concentration measurement (mass/volume) 33 g/dL 32-36 Automated erythrocyte distribution width ratio 23. 4 % 10.0- 14.5 Automated blood platelet count (count/volume) 280 10*3/uL 130-400 Automated blood platelet mean volume measurement 9.4 [foz_us] 7.4-10.4 Automated blood neutrophils/100 leukocytes 80 % 42-75 Automated blood lymphocytes/100 leukocytes 15 % 12-44 Blood monocytes/100 leukocytes 4 % 0-12 Automated blood eosinophils/100 leukocytes 1 % 0-10 Automated blood basophils/100 leukocytes 0 % 0-10 Blood neutrophils automated count (number/volume) 8.6 10*3 1.8-7.8 Blood lymphocytes automated count (number/volume) 1.6 10*3 1.0-4.0 Blood monocytes automated count (number/volume) 0. 4 10*3 0.0-1.0 Automated eosinophil count 0.1 10*3/uL 0 .0-0.3 Automated blood basophil count (count/volume) 0.0 10*3/uL 0.0-0.1 Whole blood basic metabolic panel - 09/23 10/10 04:05 Serum or plasma sodium measurement (moles/volume) 147 mmol/L 135-145 Serum or plasma potassium measurement (moles/volume) 3.8 mmol/L 3.6-5.0 Serum or plasma chloride measurement (moles/volume) 109 mmol/L 98-107 Carbon dioxide 25 mmol/L 21-32 Serum or plasma anion gap determination (moles/volume) 13 mmol/L 5-14 Serum or plasma urea nitrogen measurement (mass/volume ) 36 mg/dL 7-18 Serum or plasma creatinine measurement (mass/volume) 2.39 mg/dL 0.60-1.30 Serum or plasma urea nitrogen/creatinine mass ratio 15 NRG Serum or plasma creatinine measurement w ith calculation of estimated glomerular filtration rate 27 NRG Serum or plasma glucose measurement (mass/volume) 137 mg/dL 70-105 Serum or plasma calcium measurement (mass/volume) 7.8 mg/dL 8.5-10.1 Serum or plasma phosphate measurement (m ass/volume) - 10/03/17 04:05 Serum or plasma phosphate measurement (mass/volume) 4.0 mg/dL 2.3-4.7 Magnesium - 10/03/17 04:05 Magnesium 2.3 mg/dL 1.8-2.4 Arterial blood gas measurement - 8 06:48 Blood pCO2 42 mm[Hg] 35-45 Blood pO2 76 mm[Hg] 79-93 Arterial blood bicarbonate measurement (moles/volume) 25 mmol/L 23-27 Arterial blood base excess by calculation 0.8 mmol /L -2.5-2.5 Arterial blood oxygen saturation measurement 94 % 94-100 * Inhaled oxygen flow rate CPAP 15 NR G Arterial blood pH measurement with patient temperature correction 7.40 7.37-7.43 Arterial blood carbon dioxide, total measurement (mole s/volume) 26.3 mmol/L 21.0-31.0 Body site L RAD NRG Assessment of wrist artery patency prior to arterial p uncture YES-POS NRG Setting of ventilation mode NO NR G Measurement of body temperature 98.7 NRG Capillary blood glucose measurement by g lucometer (mass/volume) - 10/03/17 12:17 Capillary blood glucose measurement by glucometer (mas s/volume) 244 mg/dL 70-110 Capillary blood glucose measurement by g lucometer (mass/volume) - 10/03/17 17:02 Capillary blood glucose measurement by glucometer (mas s/volume) 116 mg/dL 70-110 Capillary blood glucose measurement by g lucometer (mass/volume) - 10/04/17 00:12 Capillary blood glucose measurement by glucometer (mas s/volume) 159 mg/dL 70-110 Complete blood count (CBC) with automate d white blood cell (WBC) differential - 10/04/17 05:28 Blood leukocytes automated count (number/volume) 7.8 10*3/uL 4.3-11.0 Blood erythrocytes automated count (number/volume) 3.43 10*6/uL 4.35-5.85 Venous blood hemoglobin measurement (mass/volume) 7.9 g/dL 13.3-17.7 Blood hematocrit (volume fraction) 25 % 40-54 Automated erythrocyte mean corpuscular volume 74 [ foz_us] 80-99 Automated erythrocyte mean corpuscular h emoglobin (mass per erythrocyte) 23 pg 25-34 Automated erythrocyte mean corpuscular h emoglobin concentration measurement (mass/volume) 31 g/dL 32-36 Automated erythrocyte distribution width ratio 23. 1 % 10.0- 14.5 Automated blood platelet count (count/volume) 290 10*3/uL 130-400 Automated blood platelet mean volume measurement 9.4 [foz_us] 7.4-10.4 Automated blood neutrophils/100 leukocytes 67 % 42-75 Automated blood lymphocytes/100 leukocytes 23 % 12-44 Blood monocytes/100 leukocytes 9 % 0-12 Automated blood eosinophils/100 leukocytes 1 % 0-10 Automated blood basophils/100 leukocytes 0 % 0-10 Blood neutrophils automated count (number/volume) 5.2 10*3 1.8-7.8 Blood lymphocytes automated count (number/volume) 1.8 10*3 1.0-4.0 Blood monocytes automated count (number/volume) 0. 7 10*3 0.0-1.0 Automated eosinophil count 0.1 10*3/uL 0 .0-0.3 Automated blood basophil count (count/volume) 0.0 10*3/uL 0.0-0.1 Whole blood basic metabolic panel - 09/23 11/10 05:28 Serum or plasma sodium measurement (moles/volume) 147 mmol/L 135-145 Serum or plasma potassium measurement (moles/volume) 3.5 mmol/L 3.6-5.0 Serum or plasma chloride measurement (moles/volume) 109 mmol/L 98-107 Carbon dioxide 26 mmol/L 21-32 Serum or plasma anion gap determination (moles/volume) 12 mmol/L 5-14 Serum or plasma urea nitrogen measurement (mass/volume ) 26 mg/dL 7-18 Serum or plasma creatinine measurement (mass/volume) 1.91 mg/dL 0.60-1.30 Serum or plasma urea nitrogen/creatinine mass ratio 14 NRG Serum or plasma creatinine measurement w ith calculation of estimated glomerular filtration rate 34 NRG Serum or plasma glucose measurement (mass/volume) 120 mg/dL 70-105 Serum or plasma calcium measurement (mass/volume) 7.6 mg/dL 8.5-10.1 Serum or plasma phosphate measurement (m ass/volume) - 10/04/17 05:28 Serum or plasma phosphate measurement (mass/volume) 3.3 mg/dL 2.3-4.7 Magnesium - 10/04/17 05:28 Magnesium 1.8 mg/dL 1.8-2.4 Capillary blood glucose measurement by g lucometer (mass/volume) - 10/04/17 12:18 Capillary blood glucose measurement by glucometer (mas s/volume) 315 mg/dL 70-110 Capillary blood glucose measurement by g lucometer (mass/volume) - 10/04/17 18:16 Capillary blood glucose measurement by glucometer (mas s/volume) 277 mg/dL 70-110 Capillary blood glucose measurement by g lucometer (mass/volume) - 10/05/17 00:04 Capillary blood glucose measurement by glucometer (mas s/volume) 288 mg/dL 70-110 Complete blood count (CBC) with automate d white blood cell (WBC) differential - 10/05/17 05:20 Blood leukocytes automated count (number/volume) 7.2 10*3/uL 4.3-11.0 Blood erythrocytes automated count (number/volume) 3.70 10*6/uL 4.35-5.85 Venous blood hemoglobin measurement (mass/volume) 8.5 g/dL 13.3-17.7 Blood hematocrit (volume fraction) 27 % 40-54 Automated erythrocyte mean corpuscular volume 73 [ foz_us] 80-99 Automated erythrocyte mean corpuscular h emoglobin (mass per erythrocyte) 23 pg 25-34 Automated erythrocyte mean corpuscular h emoglobin concentration measurement (mass/volume) 32 g/dL 32-36 Automated erythrocyte distribution width ratio 23. 2 % 10.0- 14.5 Automated blood platelet count (count/volume) 324 10*3/uL 130-400 Automated blood platelet mean volume measurement 9.7 [foz_us] 7.4-10.4 Automated blood neutrophils/100 leukocytes 92 % 42-75 Automated blood lymphocytes/100 leukocytes 5 % 12-44 Blood monocytes/100 leukocytes 3 % 0-12 Automated blood eosinophils/100 leukocytes 0 % 0-10 Automated blood basophils/100 leukocytes 0 % 0-10 Blood neutrophils automated count (number/volume) 6.6 10*3 1.8-7.8 Blood lymphocytes automated count (number/volume) 0.4 10*3 1.0-4.0 Blood monocytes automated count (number/volume) 0. 2 10*3 0.0-1.0 Automated eosinophil count 0.0 10*3/uL 0 .0-0.3 Automated blood basophil count (count/volume) 0.0 10*3/uL 0.0-0.1 Whole blood basic metabolic panel - 09/23 12/08 05:20 Serum or plasma sodium measurement (moles/volume) 143 mmol/L 135-145 Serum or plasma potassium measurement (moles/volume) 3.3 mmol/L 3.6-5.0 Serum or plasma chloride measurement (moles/volume) 105 mmol/L 98-107 Carbon dioxide 25 mmol/L 21-32 Serum or plasma anion gap determination (moles/volume) 13 mmol/L 5-14 Serum or plasma urea nitrogen measurement (mass/volume ) 23 mg/dL 7-18 Serum or plasma creatinine measurement (mass/volume) 1.76 mg/dL 0.60-1.30 Serum or plasma urea nitrogen/creatinine mass ratio 13 NRG Serum or plasma creatinine measurement w ith calculation of estimated glomerular filtration rate 38 NRG Serum or plasma glucose measurement (mass/volume) 318 mg/dL 70-105 Serum or plasma calcium measurement (mass/volume) 8.4 mg/dL 8.5-10.1 Serum or plasma phosphate measurement (m ass/volume) - 10/05/17 05:20 Serum or plasma phosphate measurement (mass/volume) 2.5 mg/dL 2.3-4.7 Magnesium - 10/05/17 05:20 Magnesium 1.7 mg/dL 1.8-2.4 Capillary blood glucose measurement by g lucometer (mass/volume) - 10/05/17 05:23 Capillary blood glucose measurement by glucometer (mas s/volume) 320 mg/dL 70-110 Capillary blood glucose measurement by g lucometer (mass/volume) - 10/05/17 12:16 Capillary blood glucose measurement by glucometer (mas s/volume) 415 mg/dL 70-110 Capillary blood glucose measurement by g lucometer (mass/volume) - 10/05/17 16:08 Capillary blood glucose measurement by glucometer (mas s/volume) 416 mg/dL 70-110 Capillary blood glucose measurement by g lucometer (mass/volume) - 10/05/17 20:56 Capillary blood glucose measurement by glucometer (mas s/volume) 310 mg/dL 70-110 Complete blood count (CBC) with automate d white blood cell (WBC) differential - 10/06/17 05:30 Blood leukocytes automated count (number/volume) 10.1 10*3/uL 4.3-11.0 Blood erythrocytes automated count (number/volume) 3.82 10*6/uL 4.35-5.85 Venous blood hemoglobin measurement (mass/volume) 8.6 g/dL 13.3-17.7 Blood hematocrit (volume fraction) 28 % 40-54 Automated erythrocyte mean corpuscular volume 73 [ foz_us] 80-99 Automated erythrocyte mean corpuscular h emoglobin (mass per erythrocyte) 23 pg 25-34 Automated erythrocyte mean corpuscular h emoglobin concentration measurement (mass/volume) 31 g/dL 32-36 Automated erythrocyte distribution width ratio 23. 0 % 10.0- 14.5 Automated blood platelet count (count/volume) 396 10*3/uL 130-400 Automated blood platelet mean volume measurement 9.7 [foz_us] 7.4-10.4 Automated blood neutrophils/100 leukocytes 92 % 42-75 Automated blood lymphocytes/100 leukocytes 5 % 12-44 Blood monocytes/100 leukocytes 4 % 0-12 Automated blood eosinophils/100 leukocytes 0 % 0-10 Automated blood basophils/100 leukocytes 0 % 0-10 Blood neutrophils automated count (number/volume) 9.2 10*3 1.8-7.8 Blood lymphocytes automated count (number/volume) 0.5 10*3 1.0-4.0 Blood monocytes automated count (number/volume) 0. 4 10*3 0.0-1.0 Automated eosinophil count 0.0 10*3/uL 0 .0-0.3 Automated blood basophil count (count/volume) 0.0 10*3/uL 0.0-0.1 Comprehensive metabolic panel - 10/06/17 05:30 Serum or plasma sodium measurement (moles/volume) 145 mmol/L 135-145 Serum or plasma potassium measurement (moles/volume) 3.0 mmol/L 3.6-5.0 Serum or plasma chloride measurement (moles/volume) 106 mmol/L 98-107 Carbon dioxide 23 mmol/L 21-32 Serum or plasma anion gap determination (moles/volume) 16 mmol/L 5-14 Serum or plasma urea nitrogen measurement (mass/volume ) 29 mg/dL 7-18 Serum or plasma creatinine measurement (mass/volume) 1.78 mg/dL 0.60-1.30 Serum or plasma urea nitrogen/creatinine mass ratio 16 NRG Serum or plasma creatinine measurement w ith calculation of estimated glomerular filtration rate 37 NRG Serum or plasma glucose measurement (mass/volume) 353 mg/dL 70-105 Serum or plasma calcium measurement (mass/volume) 8.6 mg/dL 8.5-10.1 Serum or plasma total bilirubin measurement (mass/volu me) 0.3 mg/dL 0.1-1.0 Serum or plasma alkaline phosphatase jose daniel surement (enzymatic activity/volume) 81 U/L 40-136 Serum or plasma aspartate aminotransfera se measurement (enzymatic activity/volume) 20 U/L 5-34 Serum or plasma alanine aminotransferase measurement (enzymatic activity/volume) 20 U/L 0-55 Serum or plasma protein measurement (mass/volume) 6.6 g/dL 6.4-8.2 Serum or plasma albumin measurement (mass/volume) 3.2 g/dL 3.2-4.5 Capillary blood glucose measurement by g lucometer (mass/volume) - 10/06/17 06:04 Capillary blood glucose measurement by glucometer (mas s/volume) 317 mg/dL 70-110 Capillary blood glucose measurement by g lucometer (mass/volume) - 10/06/17 11:20 Capillary blood glucose measurement by glucometer (mas s/volume) 276 mg/dL 70-110 Capillary blood glucose measurement by g lucometer (mass/volume) - 10/06/17 15:34 Capillary blood glucose measurement by glucometer (mas s/volume) 307 mg/dL 70-110 Capillary blood glucose measurement by g lucometer (mass/volume) - 10/06/17 21:08 Capillary blood glucose measurement by glucometer (mas s/volume) 223 mg/dL 70-110 Complete blood count (CBC) with automate d white blood cell (WBC) differential - 10/07/17 05:30 Blood leukocytes automated count (number/volume) 8.2 10*3/uL 4.3-11.0 Blood erythrocytes automated count (number/volume) 3.92 10*6/uL 4.35-5.85 Venous blood hemoglobin measurement (mass/volume) 8.8 g/dL 13.3-17.7 Blood hematocrit (volume fraction) 29 % 40-54 Automated erythrocyte mean corpuscular volume 74 [ foz_us] 80-99 Automated erythrocyte mean corpuscular h emoglobin (mass per erythrocyte) 22 pg 25-34 Automated erythrocyte mean corpuscular h emoglobin concentration measurement (mass/volume) 30 g/dL 32-36 Automated erythrocyte distribution width ratio 23. 2 % 10.0- 14.5 Automated blood platelet count (count/volume) 432 10*3/uL 130-400 Automated blood platelet mean volume measurement 9.5 [foz_us] 7.4-10.4 Automated blood neutrophils/100 leukocytes 89 % 42-75 Automated blood lymphocytes/100 leukocytes 6 % 12-44 Blood monocytes/100 leukocytes 5 % 0-12 Automated blood eosinophils/100 leukocytes 0 % 0-10 Automated blood basophils/100 leukocytes 0 % 0-10 Blood neutrophils automated count (number/volume) 7.3 10*3 1.8-7.8 Blood lymphocytes automated count (number/volume) 0.5 10*3 1.0-4.0 Blood monocytes automated count (number/volume) 0. 4 10*3 0.0-1.0 Automated eosinophil count 0.0 10*3/uL 0 .0-0.3 Automated blood basophil count (count/volume) 0.0 10*3/uL 0.0-0.1 Comprehensive metabolic panel - 10/07/17 05:30 Serum or plasma sodium measurement (moles/volume) 145 mmol/L 135-145 Serum or plasma potassium measurement (moles/volume) 3.6 mmol/L 3.6-5.0 Serum or plasma chloride measurement (moles/volume) 107 mmol/L 98-107 Carbon dioxide 26 mmol/L 21-32 Serum or plasma anion gap determination (moles/volume) 12 mmol/L 5-14 Serum or plasma urea nitrogen measurement (mass/volume ) 34 mg/dL 7-18 Serum or plasma creatinine measurement (mass/volume) 1.69 mg/dL 0.60-1.30 Serum or plasma urea nitrogen/creatinine mass ratio 20 NRG Serum or plasma creatinine measurement w ith calculation of estimated glomerular filtration rate 40 NRG Serum or plasma glucose measurement (mass/volume) 269 mg/dL 70-105 Serum or plasma calcium measurement (mass/volume) 8.4 mg/dL 8.5-10.1 Serum or plasma total bilirubin measurement (mass/volu me) 0.2 mg/dL 0.1-1.0 Serum or plasma alkaline phosphatase jose daniel surement (enzymatic activity/volume) 77 U/L 40-136 Serum or plasma aspartate aminotransfera se measurement (enzymatic activity/volume) 15 U/L 5-34 Serum or plasma alanine aminotransferase measurement (enzymatic activity/volume) 20 U/L 0-55 Serum or plasma protein measurement (mass/volume) 6.5 g/dL 6.4-8.2 Serum or plasma albumin measurement (mass/volume) 3.2 g/dL 3.2-4.5 Capillary blood glucose measurement by g lucometer (mass/volume) - 10/07/17 12:02 Capillary blood glucose measurement by glucometer (mas s/volume) 296 mg/dL 70-110 Capillary blood glucose measurement by g lucometer (mass/volume) - 10/07/17 15:47 Capillary blood glucose measurement by glucometer (mas s/volume) 342 mg/dL 70-110 Capillary blood glucose measurement by g lucometer (mass/volume) - 10/07/17 20:41 Capillary blood glucose measurement by glucometer (mas s/volume) 233 mg/dL 70-110 Capillary blood glucose measurement by g lucometer (mass/volume) - 10/08/17 04:22 Capillary blood glucose measurement by glucometer (mas s/volume) 159 mg/dL 70-110 Capillary blood glucose measurement by g lucometer (mass/volume) - 10/08/17 10:58 Capillary blood glucose measurement by glucometer (mas s/volume) 153 mg/dL 70-110 Capillary blood glucose measurement by g lucometer (mass/volume) - 10/08/17 16:17 Capillary blood glucose measurement by glucometer (mas s/volume) 235 mg/dL 70-110 TSH w/ FREE T4 - 04/02/19 11:55 TSH 2.70 mIU/L 0.40-4.50 T4, FREE 1.2 ng/dL 0.8-1.8 CMP - 04/02/19 11:55 GLUCOSE 100 mg/dL 65-99 UREA NITROGEN (BUN) 21 mg/dL 7-25 CREATININE 0.95 mg/dL 0.70-1.18 eGFR NON-AFR. MALAGASY 77 mL/min/1.73m2 > OR = 60 eGFR 89 mL/min/1.73m2 > OR = 60 BUN/CREATININE RATIO NOT APPLICABLE (calc) 6-22 SODIUM 141 mmol/L 135-146 POTASSIUM 4.4 mmol/L 3.5-5.3 CHLORIDE 105 mmol/L 98-110 CARBON DIOXIDE 25 mmol/L 20-32 CALCIUM 8.4 mg/dL 8.6-10.3 PROTEIN, TOTAL 6.7 g/dL 6.1-8.1 ALBUMIN 3.7 g/dL 3.6-5.1 GLOBULIN 3.0 g/dL (calc) 1.9-3.7 ALBUMIN/GLOBULIN RATIO 1.2 (calc) 1.0-2. 5 BILIRUBIN, TOTAL 0.3 mg/dL 0.2-1.2 ALKALINE PHOSPHATASE 214 U/L 40-115 AST 15 U/L 10-35 ALT 10 U/L 9-46 CBC - 04/02/19 11:55 WHITE BLOOD CELL COUNT 10.0 Thousand/uL 3.8-10.8 RED BLOOD CELL COUNT 4.35 Million/uL 4.2 0-5.80 HEMOGLOBIN 10.9 g/dL 13.2-17.1 HEMATOCRIT 36.3 % 38.5-50.0 MCV 83.4 fL 80.0-100.0 MCH 25.1 pg 27.0-33.0 MCHC 30.0 g/dL 32.0-36.0 RDW 18.4 % 11.0-15.0 PLATELET COUNT 349 Thousand/uL 140-400 MPV 9.8 fL 7.5-12.5 ABSOLUTE NEUTROPHILS 6100 cells/uL 1500- 7800 ABSOLUTE LYMPHOCYTES 2700 cells/uL 850-3 900 ABSOLUTE MONOCYTES 650 cells/uL 200-950 ABSOLUTE EOSINOPHILS 500 cells/uL 15-500 ABSOLUTE BASOPHILS 50 cells/uL 0-200 NEUTROPHILS 61 % NRG LYMPHOCYTES 27.0 % NRG MONOCYTES 6.5 % NRG EOSINOPHILS 5.0 % NRG BASOPHILS 0.5 % NRG A1C - 04/02/19 11:55 HEMOGLOBIN A1c 7.8 % of total Hgb <5.7 LIPID PANEL - 04/30/19 10:48 CHOLESTEROL, TOTAL 79 mg/dL <200 HDL CHOLESTEROL 31 mg/dL >40 TRIGLYCERIDES 98 mg/dL <150 LDL-CHOLESTEROL 30 mg/dL (calc) NRG CHOL/HDLC RATIO 2.5 (calc) <5.0 NON HDL CHOLESTEROL 48 mg/dL (calc) <130 TSH - 10/08/19 10:31 TSH 2.72 mIU/L 0.40-4.50 A1C - 10/08/19 10:31 HEMOGLOBIN A1c 7.7 % of total Hgb <5.7 ANEMIA PANEL - 11/12/19 10:23 IRON, TOTAL 25 mcg/dL 50-180 FERRITIN 17 ng/mL 24-380 IRON BINDING CAPACITY 321 mcg/dL (calc) 250-425 % SATURATION 8 % (calc) 20-48 LIPID PANEL - 11/12/19 10:23 CHOLESTEROL, TOTAL 76 mg/dL <200 HDL CHOLESTEROL 29 mg/dL > OR = 40 TRIGLYCERIDES 113 mg/dL <150 LDL-CHOLESTEROL 27 mg/dL (calc) NRG CHOL/HDLC RATIO 2.6 (calc) <5.0 NON HDL CHOLESTEROL 47 mg/dL (calc) <130 CBC - 11/12/19 10:23 WHITE BLOOD CELL COUNT 9.4 Thousand/uL 3 .8-10.8 RED BLOOD CELL COUNT 4.09 Million/uL 4.2 0-5.80 HEMOGLOBIN 10.4 g/dL 13.2-17.1 HEMATOCRIT 34.9 % 38.5-50.0 MCV 85.3 fL 80.0-100.0 MCH 25.4 pg 27.0-33.0 MCHC 29.8 g/dL 32.0-36.0 RDW 18.3 % 11.0-15.0 PLATELET COUNT 357 Thousand/uL 140-400 MPV 10.2 fL 7.5-12.5 ABSOLUTE NEUTROPHILS 5847 cells/uL 1500- 7800 ABSOLUTE LYMPHOCYTES 2265 cells/uL 850-3 900 ABSOLUTE MONOCYTES 790 cells/uL 200-950 ABSOLUTE EOSINOPHILS 442 cells/uL 15-500 ABSOLUTE BASOPHILS 56 cells/uL 0-200 NEUTROPHILS 62.2 % NRG LYMPHOCYTES 24.1 % NRG MONOCYTES 8.4 % NRG EOSINOPHILS 4.7 % NRG BASOPHILS 0.6 % NRG COVID-19 ([facility]) - 01/22/20 10:23 CBC - 02/18/20 11:45 WHITE BLOOD CELL COUNT 12.6 Thousand/uL 3.8-10.8 RED BLOOD CELL COUNT 4.28 Million/uL 4.2 0-5.80 HEMOGLOBIN 11.3 g/dL 13.2-17.1 HEMATOCRIT 36.5 % 38.5-50.0 MCV 85.3 fL 80.0-100.0 MCH 26.4 pg 27.0-33.0 MCHC 31.0 g/dL 32.0-36.0 RDW 17.5 % 11.0-15.0 PLATELET COUNT 379 Thousand/uL 140-400 MPV 10.7 fL 7.5-12.5 ABSOLUTE NEUTROPHILS 8795 cells/uL 1500- 7800 ABSOLUTE LYMPHOCYTES 2369 cells/uL 850-3 900 ABSOLUTE MONOCYTES 857 cells/uL 200-950 ABSOLUTE EOSINOPHILS 504 cells/uL 15-500 ABSOLUTE BASOPHILS 76 cells/uL 0-200 NEUTROPHILS 69.8 % NRG LYMPHOCYTES 18.8 % NRG MONOCYTES 6.8 % NRG EOSINOPHILS 4.0 % NRG BASOPHILS 0.6 % NRG Complete blood count (CBC) with automate d white blood cell (WBC) differential - 03/01/20 11:00 Blood leukocytes automated count (number/volume) 12.2 10*3/uL 4.3-11.0 Blood erythrocytes automated count (number/volume) 3.63 10*6/uL 4.35-5.85 Venous blood hemoglobin measurement (mass/volume) 9.8 g/dL 13.3-17.7 Blood hematocrit (volume fraction) 30 % 40-54 Automated erythrocyte mean corpuscular volume 82 [ foz_us] 80-99 Automated erythrocyte mean corpuscular h emoglobin (mass per erythrocyte) 27 pg 25-34 Automated erythrocyte mean corpuscular h emoglobin concentration measurement (mass/volume) 33 g/dL 32-36 Automated erythrocyte distribution width ratio 21. 8 % 10.0- 14.5 Automated blood platelet count (count/volume) 391 10*3/uL 130-400 Automated blood platelet mean volume measurement 9.7 [foz_us] 7.4-10.4 Automated blood neutrophils/100 leukocytes 83 % 42-75 Automated blood lymphocytes/100 leukocytes 7 % 12-44 Blood monocytes/100 leukocytes 8 % 0-12 Automated blood eosinophils/100 leukocytes 2 % 0-10 Automated blood basophils/100 leukocytes 0 % 0-10 Blood neutrophils automated count (number/volume) 10.2 10*3 1.8-7.8 Blood lymphocytes automated count (number/volume) 0.9 10*3 1.0-4.0 Blood monocytes automated count (number/volume) 0. 9 10*3 0.0-1.0 Automated eosinophil count 0.2 10*3/uL 0 .0-0.3 Automated blood basophil count (count/volume) 0.0 10*3/uL 0.0-0.1 Blood lactic acid measurement (moles/vol ume) - 03/01/20 11:00 Blood lactic acid measurement (moles/volume) 1.79 mmol/L 0.50-2.00 Comprehensive metabolic panel - 03/01/20 11:00 Serum or plasma sodium measurement (moles/volume) 131 mmol/L 135-145 Serum or plasma potassium measurement (moles/volume) 3.3 mmol/L 3.6-5.0 Serum or plasma chloride measurement (moles/volume) 91 mmol/L 98-107 Carbon dioxide 19 mmol/L 21-32 Serum or plasma anion gap determination (moles/volume) 21 mmol/L 5-14 Serum or plasma urea nitrogen measurement (mass/volume ) 60 mg/dL 7-18 Serum or plasma creatinine measurement (mass/volume) 2.51 mg/dL 0.60-1.30 Serum or plasma urea nitrogen/creatinine mass ratio 24 NRG Serum or plasma creatinine measurement w ith calculation of estimated glomerular filtration rate 25 NRG Serum or plasma glucose measurement (mass/volume) 141 mg/dL 70-105 Serum or plasma calcium measurement (mass/volume) 7.7 mg/dL 8.5-10.1 Serum or plasma total bilirubin measurement (mass/volu me) 0.8 mg/dL 0.1-1.0 Serum or plasma alkaline phosphatase jose daniel surement (enzymatic activity/volume) 358 U/L 40-136 Serum or plasma aspartate aminotransfera se measurement (enzymatic activity/volume) 71 U/L 5-34 Serum or plasma alanine aminotransferase measurement (enzymatic activity/volume) 34 U/L 0-55 Serum or plasma protein measurement (mass/volume) 5.9 g/dL 6.4-8.2 Serum or plasma albumin measurement (mass/volume) 2.5 g/dL 3.2-4.5 CALCIUM CORRECTED 8.9 mg/dL 8.5-10.1 Magnesium - 03/01/20 11:00 Magnesium 1.6 mg/dL 1.6-2.4 PROBNP FS - 03/01/20 11:00 PROBNP FS 1065.0 pg/mL <75.0 Lipase - 03/01/20 11:00 Lipase 11 U/L 8-78 Manual absolute plasma cell count - 06/12 11:00 Blood monocytes/100 leukocytes 4 % NRG Manual blood segmented neutrophils/100 leukocytes 83 % NRG Blood band neutrophils/100 leukocytes 5 % NRG Manual blood lymphocytes/100 leukocytes 7 % NRG Manual eosinophils/100 leukocytes in nose 1 % NRG Manual blood basophils/100 leukocytes 0 % NRG Blood poikilocytosis detection by light microscopy SLIGHT NRG Blood hypochromia detection by light microscopy SL IGHT NRG Complete urinalysis with reflex to cultu re - 03/01/20 11:08 Urine color determination YELLOW NRG Urine clarity determination CLEAR NR G Urine pH measurement by test strip 6.0 5-9 Specific gravity of urine by test strip 1.015 1.016-1.022 Urine protein assay by test strip, semi-quantitative 1+ NEGATIVE Urine glucose detection by automated test strip NE GATIVE NEGATIVE Erythrocytes detection in urine sediment by light micr oscopy NEGATIVE NEGATIVE Urine ketones detection by automated test strip TR KORY NEGATIVE Urine nitrite detection by test strip NEGATIVE NEGATIVE Urine total bilirubin detection by test strip 2+ NEGATIVE Urine urobilinogen measurement by automated test strip (mass/volume) 0.2 mg/dL < = 1.0 Urine leukocyte esterase detection by dipstick 1+ NEGATIVE Automated urine sediment erythrocyte cou nt by microscopy (number/high power field) NONE NRG Automated urine sediment leukocyte count by microscopy (number/high power field) [HPF] NRG Bacteria detection in urine sediment by light microsco py MODERATE NRG Squamous epithelial cells detection in u rine sediment by light microscopy 2-5 NRG Crystals detection in urine sediment by light microsco py NONE NRG Casts detection in urine sediment by light microscopy PRESENT NRG Mucus detection in urine sediment by light microscopy NEGATIVE NRG Complete urinalysis with reflex to culture YES NRG Hyaline casts detection in urine sediment by light trung roscopy 0-2 NRG Encounters ACCT No. Visit Date/Time Discharge Status Pt. Type Provider Facility Loc./Unit Complaint [id number] 11/13/2019 15:00:00 11/13/2019 23:59: 59 CLS Outpatient SELF, MARYJANE Hernandez [facility] [id number] 02/18/2020 17:00:00 Document Registration [id number] 01/22/2020 10:15:00 Document Registration [id number] 11/12/2019 17:30:00 Document Registration [id number] 10/08/2019 17:45:00 Document Registration [id number] 04/30/2019 17:45:00 Document Registration [id number] 04/02/2019 17:30:00 Document Registration [id number] 09/30/2017 20:40:00 018 16:30:00 DIS Inpatient ANGIE CAMARILLO, DELIA Almaraz [facility] 4TH INFLUENZA B POSITIVE, S EPSIS [id number] 03/01/2020 10:51:[address] Emergency CHRISTY ADAMSON MD [facility] ER FS N/V; DIARRHEA
[2020-03-01] MEDS ORDERED: CATHETER FLUSH 10 ML SYR IV PRN (15:00)
[2020-03-01] MEDS ORDERED: ONDANSETRON 4 MG/2 ML (SDV) Z0FRAN IV PRN (15:00)
[2020-03-01] MEDS ORDERED: PANT40TA3 PO (15:14)
[2020-03-01] MEDS ORDERED: LEVO50TA6 PO (15:14)
[2020-03-01] MEDS ORDERED: METF-399 PO (15:14)
[2020-03-01] MEDS ORDERED: SUCR1TAB PO (15:14)
[2020-03-01] MEDS ORDERED: ASPI-999 PO (15:14)
[2020-03-01] MEDS ORDERED: FURO20TA4 PO (15:14)
[2020-03-01] MEDS ORDERED: FAMO20TA5 PO (15:14)
[2020-03-01] MEDS ORDERED: AMLO5TAB9 PO (15:14)
[2020-03-01] MEDS ORDERED: CITA20TA9 PO (15:22)
[2020-03-01] MEDS ORDERED: HYDR-83 PO (15:22)
[2020-03-01] MEDS ORDERED: IRON-17 PO (15:22)
[2020-03-01] MEDS ORDERED: LOPE-175 PO (15:22)
--- NOTE | 2020-03-01 15:23 | NUR ---
I ENTERED THE MED REC USING THE PHARMACY ORDERS FROM [facility] ON THE EXT MED HISTORY IT SHOWS OMEPRAZOLE AND ONDANSETRON BOTH FILLED YESTERDAY 02-29-2020 BUT THE PT HAS NOT HAD EITHER OF THESE. NEITHER IS LISTED ON THE MED LIST FROM THE FACILITY DUE TO THESE REASONS I DID NOT INCLUDE THEM ON THE MED REC
--- OUTSIDE RECORDS SUMMARY | 2020-03-01 16:01 | XMS REPORT | Continuity of Care Document ---
Author Organization Unknown Address Unknown Phone Unavailable Allergies Active Description Code Type Severity Reaction Onset Reported/Identified Relationship to Patient Clinical Status Yes latex [id number] Drug Allergy Unknown N/A 09/01/2007 Medications There [...] 10/02/2017 DELIA ADAMS MD Ot Z79 .4 SCIENCE LIAISON (CURRENT) USE OF INSULIN 10/02/2017 DELIA ADAMS [...] MD Ot E87 .6 HYPOKALEMIA 10/02/2017 DELIA AADMS MD Ot I11 .0 HYPERTENSIVE HEART DISEASE [...] 10/02/2017 DELIA ADAMS MD Ot Z79 .4 LONGTERM (CURRENT) USE OF INSULIN 10/03/2017 DELIA ADAMS [...] 10/03/2017 DELIA ADAMS MD Ot Z79 .4 LONGTERM (CURRENT) USE OF INSULIN 10/04/2017 DELIA ADAMS [...] 10/04/2017 DELIA ADAMS MD Ot Z79 .4 LONGTERM (CURRENT) USE OF INSULIN 10/04/2017 DELIA ADAMS [...] 10/04/2017 DELIA ADAMS MD Ot Z79 .4 LONGTERM (CURRENT) USE OF INSULIN 10/04/2017 DELIA ADAMS [...] MD Ot E87 .2 ACIDOSIS 10/04/2017 DELIA ADASM MD Ot E87 .6 HYPOKALEMIA 10/04/2017 DELIA [...] 10/04/2017 DELIA ADAMS MD Ot Z79 .4 SCIENCE LIAISON (CURRENT) USE OF INSULIN 10/05/2017 DELIA ADAMS [...] 10/05/2017 DELIA ADAMS MD Ot Z79 .4 LONGTERM (CURRENT) USE OF INSULIN 10/05/2017 DELIA ADAMS [...] MD Ot E87 .6 HYPOKALEMIA 10/05/2017 DELIA ADASM MD Ot I11 .0 HYPERTENSIVE HEART DISEASE [...] 10/05/2017 DELIA ADAMS MD Ot Z79 .4 SCIENCE LIAISON (CURRENT) USE OF INSULIN 10/05/2017 DELIA ADAMS MD Ot A41.89 OTHER SPECIFIED SEPSIS 10/05/2017 EDLIA ADAMS MD Ot D50 .9 IRON DEFICIENCY [...] 10/05/2017 DELIA ADAMS MD Ot Z79 .4 LONGTERM (CURRENT) USE OF INSULIN 10/06/2017 DELIA ADAMS [...] 10/06/2017 DELIA ADAMS MD Ot Z79 .4 SCIENCE LIAISON (CURRENT) USE OF INSULIN 10/07/2017 DELIA ADAMS [...] 10/07/2017 DELIA ADAMS MD Ot Z79 .4 LONGTERM (CURRENT) USE OF INSULIN 10/08/2017 DELIA ADAMS [...] 10/08/2017 DELIA ADAMS MD Ot Z79 .4 LONGTERM (CURRENT) USE OF INSULIN 10/08/2017 DELIA ADAMS [...] 10/08/2017 DELIA ADAMS MD Ot Z79 .4 LONGTERM (CURRENT) USE OF INSULIN 10/22/2017 DELIA ADMAS MD Ot A41.89 OTHER SPECIFIED SEPSIS 10/22/2017 [...] 10/22/2017 DELIA ADAMS MD Ot Z79 .4 SCIENCE LIAISON (CURRENT) USE OF INSULIN 10/22/2017 DELIA ADAMS [...] 10/22/2017 DELIA ADAMS MD Ot Z79 .4 SCIENCE LIAISON (CURRENT) USE OF INSULIN Procedures Code Description Performed By Per doreen On [id number] IN SERTION OF INFUSION DEV INTO SUP VENA 09/30/2017 [id number] RE SPIRATORY VENTILATION, LESS THAN 24 CO 10/01/2017 [id number] RE SPIRATORY VENTILATION, 24- 96 CONSECUTI 10/01/2017 [...] 00:5 0 FREE TEXT EXTERNAL SENT TO [facility] FOR SENSITIVITY NRG QUANTITY OF GROWTH Scant Growth NRG Bacterial sputum culture 1204000 NRG Blood lactic acid measurement (moles/vol ume) [...] Blood ovalocytes detection by light microscopy I [facility] NRG Blood poikilocytosis detection by light microscopy [...] 7-25 CREATININE 0.95 mg/dL 0.70-1.18 eGFR NON-AFR. JORDANIAN 77 mL/min/1.73m2 > OR = 60 eGFR [...] Status Pt. Type Provider Facility Loc./Unit Complaint [id number] 11/13/2019 15:00:00 11/13/2019 23:59: 59 CLS Outpatient SELF, MARYJANE Hernandez [facility] [id number] 02/18/2020 17:00:00 Document Registration [id number] 01/22/2020 10:15:00 Document Registration [id number] 11/12/2019 17:30:00 Document Registration [id number] 10/08/2019 17:45:00 Document Registration [id number] 04/30/2019 17:45:00 Document Registration [id number] 04/02/2019 17:30:00 Document Registration [id number] 09/30/2017 20:40:00 018 16:30:00 DIS Inpatient DELIA ADAMS MD [facility] 4TH INFLUENZA B POSITIVE, S EPSIS [id number] 03/01/2020 13:05:[address] Inpatient VIJAYA RODRIGUES MD Via [facility] CSD CYSTITIS W/O HEMATURIA HYPER TENSION ACUTE KIDNEY
[2020-03-01] MEDS: KCL 20 MEQ TAB (K-DUR) PO SCH ×3 (16:30→18:30)
--- NOTE | 2020-03-01 17:12 | NUR ---
THONY KRUGER Ning admitted to room 510-1, with an admitting diagnosis of electrolyte imbalance, on 03/01/20 from AM via cart, accompanied by staff.THONY KRUGER introduced to surroundings, call light, bed controls, phone, TV, temperature control, lights, meal times, smoking policy, visitor policy, side rail policy, bathrooms and showers. Patient Rights given to patient in the handbook. THONY KRUGER verbalizes understanding that [facility] is not responsible for the loss or damage to any personal effects or valuables that are kept in the patients posession during their hospitalization. The following Patient Care Plans were discussed with the pt: Discharge Planning. THONY KRUGER verbalizes understanding of Interdisciplinary Patient Education. Patient and/or family were informed about the Rapid Response Team and its purpose.
[2020-03-01] MEDS: MAGNESIUM 1 GM/100 ML IVPB 100 ML IV SCH ×2 (17:58→18:00)
[2020-03-01] MEDS: NS IV 1000 ML 1,000 ML IV SCH ×2 (18:00→22:48)
[2020-03-01 18:37] LABS: CALCIUM 6.6 MG/DL (8.5-10.1); CREATININE SERUM 2.1 MG/DL (0.60-1.30); POTASSIUM 2.7 MMOL/L (3.6-5.0)
[2020-03-01 18:38] LABS: MAGNESIUM 1.6 MG/DL (1.6-2.4); PHOSPHORUS 2.4 MG/DL (2.3-4.7)
[2020-03-01 20:00] VITALS: BP 132/84
--- NOTE | 2020-03-01 20:30 | NUR ---
ORDERS PER DR RODRIGUES TO GIVE PT IV POTASSIUM INSTEAD OF PO D/T NAUSEA.
[2020-03-01] MEDS: POTASSIUM CL 10MEQ/50ML IVPB 50 ML IV SCH ×3 (20:45→22:58)
--- NOTE | 2020-03-01 21:29 | History & Physical ---
HPI History of Present Illness: 79 yo M that [place] with worsening abdominal pain, N/V and diarrhea. Patient states that he has been having the pain for about 1 month now but it has been getting worse. He has not been able to eat normally and has been getting very nauseous with eating. States that he has lost about 20# in the month. Patient has personal h/o Prostate CA that has been in remission. States that his PSA has been undetectable but he doesn't remember the last time it was checked. He has been having more pain in his abdomen and denies any recent scans and has not seen an oncologist for a while. Source: patient Exam Limitations: no limitations Date seen by provider: Mar 01, 2020 Time Seen by Provider: 19:00 Attending Physician Vijaya Frausto MD PCP Self,Lloyd CAMARILLO Consult Date of Admission Mar 01, 2020 at 13:05 Home Medications Home Medications Reviewed patient Home Medication Reconciliation performed by pharmacy medication reconciliations environmental monitoring technician and/or nursing. Patients Allergies have been reviewed. Allergies Coded Allergies: latex (Verified Allergy, Unknown, 09/01/07) YLU-Usqjia-Emgnxa Hx Patient Social History Living Status: Lives in [place] Alcohol Use: Denies Use Recreational Drug Use: No Smoking Status: Never a Smoker 2nd Hand Smoke Exposure: No Recent Foreign Travel: No Contact w/other who traveled: No Recent Hopitalizations: No Recent Infectious Disease Expo: No Immunizations Up To Date Date of Pneumonia Vaccine: Mar 05, 2012 Past Medical History H/o Prostate Ca hypothyroidism NIDDM COPD Iron Def Anemia Review of Systems (CHC) Constitutional: No chills; malaise, weakness EENTM: no symptoms reported; No mouth pain, No nose congestion, No throat pain Respiratory: no symptoms reported; No cough, No dyspnea on exertion, No short of breath Cardiovascular: no symptoms reported; No chest pain, No edema, No palpitations Gastrointestinal: abdominal pain, diarrhea, loss of appetite, nausea, vomiting Musculoskeletal: no symptoms reported; No back pain, No joint pain, No muscle pain Skin: no symptoms reported; No lesions, No rash Psychiatric/Neurological: Weakness Reviewed Test Results Reviewed Test Results Lab Laboratory Tests Test 03/01/20 11:00 03/01/20 11:08 03/01/20 16:07 03/01/20 18:15 Range/Units White Blood Count 12.2 H 4.3-11.0 10^3/uL Red Blood Count 3.63 L 4.35-5.85 10^6/uL Hemoglobin 9.8 L 13.3-17.7 G/DL Hematocrit 30 L 40-54 % Mean Corpuscular Volume 82 80-99 FL Mean Corpuscular Hemoglobin 27 25-34 PG Mean Corpuscular Hemoglobin Concent 33 32-36 G/DL Red Cell Distribution Width 21.8 H 10.0-14.5 % Platelet Count 391 130-400 10^3/uL Mean Platelet Volume 9.7 7.4-10.4 FL Neutrophils (%) (Auto) 83 H 42-75 % Lymphocytes (%) (Auto) 7 L 12-44 % Monocytes (%) (Auto) 8 0-12 % Eosinophils (%) (Auto) 2 0-10 % Basophils (%) (Auto) 0 0-10 % Neutrophils # (Auto) 10.2 H 1.8-7.8 X 10^3 Lymphocytes # (Auto) 0.9 L 1.0-4.0 X 10^3 Monocytes # (Auto) 0.9 0.0-1.0 X 10^3 Eosinophils # (Auto) 0.2 0.0-0.3 10^3/uL Basophils # (Auto) 0.0 0.0-0.1 10^3/uL Neutrophils % (Manual) 83 % Lymphocytes % (Manual) 7 % Monocytes % (Manual) 4 % Eosinophils % (Manual) 1 % Basophils % (Manual) 0 % Band Neutrophils 5 % Hypochromasia SLIGHT Poikilocytosis SLIGHT Sodium Level 131 L 134 L 135-145 MMOL/L Potassium Level 3.3 L 2.7 L 3.6-5.0 MMOL/L Chloride Level 91 L 104 98-107 MMOL/L Carbon Dioxide Level 19 L 16 L 21-32 MMOL/L Anion Gap 21 H 14 5-14 MMOL/L Blood Urea Nitrogen 60 H 51 H 7-18 MG/DL Creatinine 2.51 H 2.10 H 0.60-1.30 MG/DL Estimat Glomerular Filtration Rate 25 31 BUN/Creatinine Ratio 24 24 Glucose Level 141 H 179 H 70-105 MG/DL Lactic Acid Level 1.79 0.50-2.00 MMOL/L Calcium Level 7.7 L 6.6 L 8.5-10.1 MG/DL Corrected Calcium 8.9 8.5-10.1 MG/DL Magnesium Level 1.6 1.6-2.4 MG/DL Total Bilirubin 0.8 0.1-1.0 MG/DL Aspartate Amino Transf (AST/SGOT) 71 H 5-34 U/L Alanine Aminotransferase (ALT/SGPT) 34 0-55 U/L Alkaline Phosphatase 358 H 40-136 U/L Pro-B-Type Natriuretic Peptide 1065.0 H <75.0 PG/ML Total Protein 5.9 L 6.4-8.2 GM/DL Albumin 2.5 L 3.2-4.5 GM/DL Lipase 11 8-78 U/L Urine Color YELLOW Urine Clarity CLEAR Urine pH 6.0 5-9 Urine Specific [place] 1.015 L 1.016-1.022 Urine Protein 1+ H NEGATIVE Urine Glucose (UA) NEGATIVE NEGATIVE Urine Ketones TRACE H NEGATIVE Urine Nitrite NEGATIVE NEGATIVE Urine Bilirubin 2+ H NEGATIVE Urine Urobilinogen 0.2 < = 1.0 MG/DL Urine Leukocyte Esterase 1+ H NEGATIVE Urine RBC (Auto) NEGATIVE NEGATIVE Urine RBC NONE /HPF Urine WBC 25-50 H /HPF Urine Squamous Epithelial Cells 2-5 /HPF Urine Crystals NONE /LPF Urine Bacteria MODERATE H /HPF Urine Casts PRESENT /LPF Urine Hyaline Casts 0-2 H /LPF Urine Mucus NEGATIVE /LPF Urine Culture Indicated YES Glucometer 133 H 70-110 MG/DL Test 03/01/20 18:20 03/01/20 18:40 Range/Units Phosphorus Level 2.4 2.3-4.7 MG/DL Magnesium Level 1.6 1.6-2.4 MG/DL Stool Occult Blood Immunoassay POSITIVE H NEGATIVE Physical Exam-(CHC) Physical Exam Vital Signs VS - Last 72 Hours, by Label 03/01/20 03/01/20 03/01/20 03/01/20 11:00 13:44 14:56 20:00 Temp 36.0 36.4 36.4 Pulse 90 84 89 85 Resp 18 18 18 B/P (MAP) 91/64 (73) 101/64 132/84 (100) Pulse Ox 98 99 98 O2 Delivery Room Air Room Air Room Air Capillary Refill : Less Than 3 Seconds General Appearance: mild distress HEENT: PERRL/EOMI, pale conjunctivae (R), pale conjunctivae (L) Neck: non-tender, full range of motion, supple Respiratory: chest non-tender, lungs clear, normal breath sounds, no respiratory distress, no accessory muscle use Cardiovascular: normal peripheral pulses, regular rate, rhythm, no murmur Gastrointestinal: soft; No guarding, No rebound; tenderness (Diffuse) Back: no CVA tenderness, no vertebral tenderness Extremities: normal range of motion, non-tender, normal inspection, no pedal edema, no calf tenderness, normal capillary refill Neurologic/Psychiatric: wool fleece grader II-XII nml as tested, no motor/sensory deficits, alert, normal mood/affect, oriented x 3, other (Hard of hearing) Skin: warm/dry, pallor Assessment/Plan Assessment/Plan Admission Status: Inpatient Order (span 2 midnights) Reason for Inpatient Admission: Requires close monitor in step down, IVFs due to moderate nausea and vomiting (1) Sepsis Status: Acute Assessment & Plan: - IVFs bolus completed, Rocephin, Cultures pending, HDS Qualifiers: Qualified Codes: A41.9 - Sepsis, unspecified organism; R65.20 - Severe sepsis without septic shock; N17.9 - Acute kidney failure, unspecified (2) UTI (urinary tract infection) Status: Acute Qualifiers: Qualified Codes: N30.00 - Acute cystitis without hematuria (3) Elevated brain natriuretic peptide (BNP) level Status: Acute Assessment & Plan: - Echo pending (4) Acute on chronic renal insufficiency Status: Acute Assessment & Plan: - IVFs continue to monitor, unsure of baseline (5) Elevated LFTs Status: Acute Assessment & Plan: - CT revealed that patient likely has metastatic cancer to the liver (6) Hypothyroidism Status: Chronic Assessment & Plan: - TSH pending, continue home meds Qualifiers: Qualified Codes: E03.9 - Hypothyroidism, unspecified (7) Non-insulin treated type 2 diabetes mellitus Status: Chronic Assessment & Plan: - Holding metformin, A1c pending (8) Essential (primary) hypertension Status: Chronic Assessment & Plan: - Continue home meds (9) Metastatic cancer to liver Status: Acute (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
[2020-03-01] MEDS ORDERED: ENOXAPARIN 40 MG/0.4 ML (LOVENOX) SYR SQ SCH (21:30)
--- NOTE | 2020-03-01 22:58 | NUR ---
NOTIFIED DR RODRIGUES OF PT POSITIVE OCCULT BLOOD IN STOOL. ORDERS TO HOLD TONIGHTS DOSE OF LOVENOX
[2020-03-01 23:58] VITALS: BP 116/69
[2020-03-02] VITALS (7 sets, daily range): BP systolic 109–128; BP diastolic 73–84
[2020-03-02] MEDS: POTASSIUM CL 10MEQ/50ML IVPB 50 ML IV SCH ×6 (00:06→08:33)
[2020-03-02] MEDS: NS IV 1000 ML 1,000 ML IV SCH ×3 (02:32→17:52)
[2020-03-02 03:10] LABS: BASOPHILS % (AUTO) 0 % (0-10); EOSINOPHILS # (AUTO) 0.4 10^3/uL (0.0-0.3); EOSINOPHILS % (AUTO) 3 % (0-10); HEMATOCRIT 26 % (40-54); HEMOGLOBIN 8.7 G/DL (13.3-17.7); LYMPHOCYTES # (AUTO) 0.8 X 10^3 (1.0-4.0); LYMPHOCYTES % (AUTO) 7 % (12-44); MEAN CORPUSCULAR HEMOGLOBIN 27 PG (25-34); MEAN CORPUSCULAR HGB CONC 34 G/DL (32-36); MEAN CORPUSCULAR VOLUME 81 FL (80-99); MONOCYTES % (AUTO) 9 % (0-12); NEUTROPHILS % (AUTO) 81 % (42-75); PLATELET COUNT 301 10^3/uL (130-400); RED CELL DISTRIBUTION WIDTH 22.3 % (10.0-14.5); WHITE BLOOD COUNT 11.1 10^3/uL (4.3-11.0)
[2020-03-02 03:19] LABS: ALBUMIN 2.4 GM/DL (3.2-4.5); POTASSIUM 2.9 MMOL/L (3.6-5.0)
[2020-03-02 03:20] LABS: CALCIUM 6.9 MG/DL (8.5-10.1)
[2020-03-02 03:23] LABS: BILIRUBIN,TOTAL 0.7 MG/DL (0.1-1.0)
[2020-03-02 03:24] LABS: PHOSPHORUS 1.9 MG/DL (2.3-4.7)
[2020-03-02 03:25] LABS: CREATININE SERUM 1.91 MG/DL (0.60-1.30)
[2020-03-02 03:27] LABS: MAGNESIUM 1.6 MG/DL (1.6-2.4)
[2020-03-02] MEDS: KCL 20 MEQ TAB (K-DUR) PO SCH (03:42)
[2020-03-02] MEDS: MAGNESIUM 1 GM/100 ML IVPB 100 ML IV SCH ×3 (03:42→05:37)
--- NOTE | 2020-03-02 04:22 | NUR ---
NOTIFIED DR RODRIGUES OF PT AM LABS, ORDERS TO REPLACE ELECTROLYTES PER PROTOCOL.
[2020-03-02] MEDS ORDERED: cefTRIAXone FOR IV USE 1,000 MG in WATER (STERILE) FOR INJECTION 10 ML IV SCH (08:00)
[2020-03-02] MEDS ORDERED: FAMOTIDINE 20 MG (PEPCID) TABLET PO SCH (08:00)
[2020-03-02] MEDS ORDERED: POTASSIUM CL 10MEQ/50ML IVPB 50 ML IV ONE (08:30)
[2020-03-02] MEDS: ASPIRIN 81 MG CHEW (CHILDREN'S ASA) PO SCH (08:32)
[2020-03-02] MEDS: PANTOPRAZOLE 40 MG (PROTONIX) TAB PO SCH (08:33)
[2020-03-02] MEDS: SUCRALFATE 1 GM (CARAFATE) TAB PO SCH ×4 (08:33→20:00)
[2020-03-02] MEDS: LEVOTHYROXINE 50 MCG (LEVOTHROID) TAB PO SCH (08:34)
[2020-03-02] MEDS: amLODIPine 5 MG (NORVASC) TAB PO SCH (08:34)
[2020-03-02] MEDS ORDERED: cefTRIAXone 1,000 MG/SWFI 10 ML IV PUSH IV SCH ×2 (09:00)
--- NOTE | 2020-03-02 09:34 | Physical Therapy Evaluation ---
PT Evaluation-General Medical Diagnosis Admission Date Mar 01, 2020 at 13:05 Medical Diagnosis: Abdominal pain, N/V, diarrhea Onset Date: Mar 01, 2020 Therapy Diagnosis Therapy Diagnosis: Decreased (I) with functional mobility Height/Weight Height (Feet): 5 Height (Inches): 8.00 Weight (Pounds): 305 Weight (Ounces): 0.0 Precautions Precautions/Isolations: Fall Prevention, Standard Precautions Weight Bear Status Right Lower Extremity: Right Weight Bearing/Tolerated Left Lower Extremity: Left Weight Bearing/Tolerated Referral Physician: Jett Reason for Referral: Evaluation/Treatment Medical History Pertinent Medical History: COPD, DM, Heart Failure, HTN, Prostate CA Additional Medical History iron deficient anemia Current History Pt presents to ER from [place] with worsening abdominal pain, N/V, diarrhea. Pt reports he has had pain for about a month that progressively got worse. Reviewed History: Yes Social History Home: Detention Current Living Status: Children Entry Into Home: Level Entry Prior Prior Level of Function SCALE: Activities may be completed with or without assistive devices. 4-Uhyoyryjsi-rpbpccw completes the activity by him/herself with no assistance from a helper. 5-Set-up or Clean-up Assistance-helper sets up or cleans up; patient completes activity. Ona assists only prior to or following the activity. 4-Supervision or Touching Assistance-helper provides verbal cues and/or touching/steadying and/or contact guard assistance as patient completes activity. Assistance may be provided throughout the activity or intermittently. 3-Partial/Moderate Assistance-helper does LESS THAN HALF the effort. Ona lifts, holds or supports trunk or limbs, but provides less than half the effort. 2-Substantial/Maximal Assistance-helper does MORE THAN HALF the effort. Ona lifts or holds trunk or limbs and provides more than half the effort. 5-Osdkcovee-vodikk does ALL the effort. Patient does none of the effort to complete the activity. Or, the assistance of 2 or more helpers is required for the patient to complete the activity. If activity was not attempted, code reason: 7-Patient Refused. 9-Not Applicable-not attempted and the patient did not perform the activity before the current illness, exacerbation or injury. 10-Not Attempted due to Environmental Limitations-(lack of equipment, weather restraints, etc.). 88-Not Attempted due to Medical Conditions or Safety Concerns. Bed Mobility: 6 Transfers (B,C,W/C): 6 Gait: 9 Stairs: 9 Wheelchair Mobility: 6 Indoor Mobility (Ambulation): Not Applicalbe Stairs: Not Applicalbe Prior Devices Use: Motorized wheelchair Pt reports he was able to transfer to power chair without assist about a week ago; "I have been bed ridden since". PT Evaluation-Current Subjective Pt in bed, rolling with NA to assist with BM clean up. Pt agreeable. Very [employer] [place], repeatedly attempting to remove this therapist's mask to read lips. Pain not rated but crying out with transfer to EOB and points to abdomen. Objective Patient Orientation: Person, Place, Time, Situation Attachments: Khan Catheter, IV ROM/Strength ROM Upper Extremities WFL for functional mobility ROM Lower Extremities Grossly WFL for functional mobility Strength Upper Extremities Grossly 3/5 Strength Lower Extremities (B) knees and ankle DF: grossly 3/5, (B) hips grossly 3-/5 Integumentary/Posture Integumentary See nurses' notes Bowel Incontinence: Yes Bladder Incontinence: Khan Cath Posture Kyphotic Neuromuscular (Tone, Coordination, Reflexes) Grossly intact Sensory Vision: Functional Hearing: Impaired Transfers Roll Left to Right (QC): 4 Sit to Lying (QC): 3 Lying to Sitting/Side of Bed(Q: 3 Sit to Stand (QC): 7 Chair/Pbr-dv-Qtfjn Xfer(QC): 7 Toilet Transfer (QC): 7 Car Transfer (QC): 88 Pt sat EOB x 5' with SBA before returning to supine due to abdominal pain. Gait Does the Patient Walk?: No and Walking Goal NOT indicated Mode of Locomotion: Wheelchair Anticipated Mode of Locomotion: Wheelchair Walk 10 feet (QC): 9 Walk 50 ft with 2 Turns(QC): 9 Walk 150 ft (QC): 9 Walking 10ft/uneven surface-QC: 9 Comments/Gait Description PLOF is non-ambulatory. SPT to power [facility] per Pt report Wheelchair Training Does the Pt Use a Wheelchair?: Yes Wheel 50 ft with 2 turns (QC): 88 Wheel 150 ft (QC): 88 Type of Wheelchair: Motorized Pt's power chair not available Stairs #of Steps: 9 1 Step (curb) (QC): 9 4 Steps (QC): 9 12 Steps (QC): 9 Balance Sitting Static: Good Sitting Dynamic: Good Treatment Eval. Returned to bed with bed alarm activated, needs met. Assessment/Needs Pt would benefit from skilled PT to improve functional strength and restore (I) with functional transfers to reduce caregiver burden upon return to NH. Rehab Potential: Fair PT Short Term Goals Short Term Goals Time Frame: Mar 06, 2020 Roll Left & Right: 6 Sit to lyin Lying to sitting on side of be: 6 PT Skilled Nursing Goals Skilled Nursing Goals PT Skilled Nursing Goals Time Frame: Mar 12, 2020 Roll Left & Right (QC): 6 Sit to Lying (QC): 6 Lying-Sitting on Side/Bed(QC): 6 Sit to Stand (QC): 6 Chair/Lqy-gk-Cymvg Xfer(QC): 6 Toilet Transfer (QC): 4 Car Transfer (QC): 9 Does the Patient Walk: No and Walking Goal NOT indicated Walk 10 feet (QC): 9 Walk 50ft with 2 Turns (QC): 9 Walk 150 ft (QC): 9 Walking 10ft on Uneven Surface: 9 1 Step (curb) (QC): 9 4 Steps (QC): 9 12 Steps (QC): 9 Picking up an Object (QC): 9 Does the Pt use WC or Scooter?: Yes Wheel 50 feet with 2 turns (QC: 88 Type: Motorized Wheel 150 feet: 88 Type: Motorized PT goals established to return to NH with decreased caregiver burden. PT Plan Problem List Problem List: Activity Tolerance, Functional Strength, Safety, Balance, Gait, Transfer, Bed Mobility Treatment/Plan Treatment Plan: Continue Plan of Care Treatment Plan: Bed Mobility, Education, Functional Activity Eliseo, Functional Strength, Gait, Safety, Therapeutic Exercise, Transfers Treatment Duration: Mar 12, 2020 Frequency: 6 times per week Estimated Hrs Per Day: .25 hour per day Patient and/or Family Agrees t: Yes Safety Risks/Education Teaching Recipient: Patient Teaching Methods: Discussion Response to Teaching: Verbalize Understanding PT POC Discharge Recommendations Therapy Discharge Recommendati: Other, See Comments (return to NH) Barriers to Progress pain Time/GCodes Time In: 914 Time Out: 929 Total Billed Treatment Time: 15 Total Billed Treatment 1, EVMODC x 15' ASIA LYON DPChandler Mar 02, 2020 09:34
--- NOTE | 2020-03-02 09:40 | NUR ---
This nurse called SBAR report to Meena CASTRJEON att. VSS. Patient taken to room 403 via bed transferred by NT. Patient leaving cardiac step down at 0947.
[2020-03-02] MEDS: HYDROcodone/APAP 5 MG/325 MG (LORTAB) TAB PO PRN ×2 (10:05→16:06)
--- NOTE | 2020-03-02 10:12 | NUR ---
RECEIVED REPORT FROM ICU NURSE. PT TRANSFERRED DOWN ON HOSPITAL BED BY TECH. PT REPORTS HE IS OK BUT HAVING SOME PAIN. THIS RN ADMIN PAIN MEDICATION TO HIM. WILL CONTINUE TO MONITOR.
--- NOTE | 2020-03-02 10:42 | NUR ---
DISCHARGE PLANNING: This PC RN went to see patient after talking with Dr. Frausto re patients newly diagnosed widely metastatic cancer. He has had significant weight loss, and now with abdominal pain. He has an oncology consult with Dr. Hernandez but is likely going to discharge today with hospice. Dr. Frausto has spoken to him and he is choosing [facility]. Will send clinical information to [facility] in anticipation of discharge today or tomorrow.
[2020-03-02] MEDS: ADVAIR HFA 115/21 MCG INHALER 8 GM IH SCH (11:35)
--- NOTE | 2020-03-02 12:59 | NUR ---
"RD ASSESSMENT PMHx: CA(prostate); hypothyroidism; DM; COPD PT INTERACTION: Pt was awake and pleasant during nutrition assessment. Note pt is hard of hearing. Pt states current appetite is okay. Note avg PO intake 50% x2meal, per chart review. Pt states following a regular diet at home, and has no issues with chewing/swallowing food. Pt states some recent issues with vomiting. Pt states unsure of recent issues with constipation or diarrhea. Note last BM was 03/02, and pt not currently on bowel regimen per chart review. Pt states recent 15# wt loss x1mon. Note unable to determine recent wt hx, per chart review. Pt did not understand questions involving current level of DM management. Note unable to determine recent HbA1c, per chart review. ABNORMAL NUTRITION-RELATED LAB VALUES LOW: Na 134; K 2.9; Ca 6.9; phos 1.9; Pro 5.0; alb 2.4 HIGH: BUN 29; cr 1.91; glu 135; AST 69; alkphos 339 Est. kcal needs: 4624-0214 kcal | 15-18 kcal/kg Est. Pro needs: 80-100 g Pro | 0.8-1.0 g Pro/kg PES STATEMENT: Inadequate oral intake (NI-2.1) related to loss of appetite | vomiting as evidenced by pt interview | avg PO intake 50% x2meal INTERVENTION: Continue with current diet order of Clear Liquid diet. Would recommend diet advancement when medically able and as tolerated. Did not offer DM education at this time d/t pt's hearing difficulty. Will attempt to offer again when family is present at bedside. Will continue to follow and reassess as pt needs, intake, and status change. MONITOR/EVALUATE: PO Intake; Plan of Care; Hydration Status; Weight Status; Lab Values Bib Diallo, MS, RD, LD"
--- NOTE | 2020-03-02 16:45 | Oncology Consultation ---
Visit Information Visit Information Date of Admission Mar 01, 2020 at 13:05 Attending Physician Huong Frausto MD Admitting Physician Lloyd Petersen MD Chief Complaint Prostate cancer with extensive mets. Interval History Mr. Nelson is 79 year old white man with h/o prostate cancer and severe hearing loss, who was admitted for nausea, vomiting and back pain. CT scan showed extensive liver, lung, retroperitoneal mets and omentin caking. [facility] before the admission. He wants to go back to his room and his own bed in the [facility] with hospice. He wants to go back tonight. I consulted the patient on: 03/02/20 16:40 Time Seen by Provider: 16:40 Review of Systems Constitutional: malaise, weakness Respiratory: no symptoms reported Cardiovascular: no symptoms reported Gastrointestinal: see HPI Genitourinary: hematuria Musculoskeletal: back pain, muscle weakness Health Status Allergies Coded Allergies: latex (Verified Allergy, Unknown, 09/01/07) Home Medications Albuterol Sulfate (Ventolin Hfa) 18 Gm Hfa.aer.ad, 2 PUFF INH Q4H PRN for SHORTNESS OF BREATH, (Reported) Amlodipine Besylate (Amlodipine Besylate) 5 Mg Tablet, 5 MG PO DAILY, (Reported) Aspirin (Aspirin) 81 Mg Tab.chew, 81 MG PO DAILY, (Reported) Atorvastatin Calcium (Atorvastatin Calcium) 10 Mg Tablet, 10 MG PO 1999, (Reported) Citalopram Hydrobromide (Citalopram HBr) 20 Mg Tablet, 20 MG PO DAILY, (Reported) Famotidine (Famotidine) 20 Mg Tablet, 20 MG PO 0800,1700, (Reported) Fluticasone/Vilanterol (Breo Ellipta 100-25 Mcg INH) 1 Each Blst.w.dev, 1 PUFF IH DAILY, (Reported) Furosemide (Furosemide) 20 Mg Tablet, 20 MG PO DAILY, (Reported) Hydrocodone/Acetaminophen (Hydrocodone-Acetamin 5-325 mg) 1 Each Tablet, 1 EA PO Q4H PRN for PAIN-MODERATE (5-7), (Reported) Iron Ag,Ps/C/Fa6/B12/Zn/SA/Sto (Niferex Tablet) 1 Each Tablet, 1 EACH PO BID, (Reported) Levothyroxine Sodium (Levothyroxine Sodium) 50 Mcg Tablet, 50 MCG PO DAILY, (Reported) Loperamide HCl (Imodium A-D) 2 Mg Capsule, 2 MG PO Q2H PRN for DIARRHEA, (Reported) Metformin HCl (Metformin HCl) 1,000 Mg Tablet, 1,000 MG PO BID, (Reported) Pantoprazole Sodium (Pantoprazole Sodium) 40 Mg Tablet.dr, 40 MG PO DAILY, (Reported) Sucralfate (Sucralfate) 1 Gm Tablet, 1 GM PO QIDACHS, (Reported) EAV-Iypeje-Cnaboz Hx Patient Social History Living Status: Lives in [place] Alcohol Use: Denies Use Recreational Drug Use: No Smoking Status: Never a Smoker 2nd Hand Smoke Exposure: No Recent Foreign Travel: No Contact w/other who traveled: No Recent Infectious Disease Expo: No Recent Hopitalizations: No Immunizations Up To Date Date of Pneumonia Vaccine: Mar 05, 2012 Physical Exam Vital Signs Vital Signs - First Documented 03/01/20 11:00 Temp 36.0 Pulse 90 Resp 18 B/P (MAP) 91/64 (73) Pulse Ox 98 O2 Delivery Room Air Capillary Refill : Less Than 3 Seconds Height, Weight, BMI Height: 5'8.00" Weight: 305lbs. 0.0oz. 138.200331vr; 32.00 BMI Method: General Appearance: No Apparent Distress HEENT: PERRL/EOMI Respiratory: No Accessory Muscle Use, No Respiratory Distress Neurologic/Psychiatric: Alert, Oriented x3 Data Review Labs Laboratory Tests 03/01/20 18:15 03/02/20 03:00 Laboratory Tests 03/01/20 11:00: White Blood Count 12.2H, Red Blood Count 3.63L, Hemoglobin 9.8L, Hematocrit 30L, Red Cell Distribution Width 21.8H, Neutrophils (%) (Auto) 83H, Lymphocytes (%) (Auto) 7L, Neutrophils # (Auto) 10.2H, Lymphocytes # (Auto) 0.9L, Sodium Level 131L, Potassium Level 3.3L, Chloride Level 91L, Carbon Dioxide Level 19L, Anion Gap 21H, Blood Urea Nitrogen 60H, Creatinine 2.51H, Glucose Level 141H, Calcium Level 7.7L, Aspartate Amino Transf (AST/SGOT) 71H, Alkaline Phosphatase 358H, Pro-B-Type Natriuretic Peptide 1065.0H, Total Protein 5.9L, Albumin 2.5L 6/9/20 11:08: Urine Specific Neola 1.015L, Urine Protein 1+H, Urine Ketones TRACEH, Urine Bilirubin 2+H, Urine Leukocyte Esterase 1+H, Urine WBC 25-50H, Urine Bacteria MODERATEH, Urine Hyaline Casts 0-2H 03/01/20 16:07: Glucometer 133H 03/01/20 18:15: Sodium Level 134L, Potassium Level 2.7L, Carbon Dioxide Level 16L, Blood Urea Nitrogen 51H, Creatinine 2.10H, Glucose Level 179H, Calcium Level 6.6L 03/01/20 18:20: 03/01/20 18:40: Stool Occult Blood Immunoassay POSITIVEH 03/02/20 03:00: White Blood Count 11.1H, Red Blood Count 3.19L, Hemoglobin 8.7L, Hematocrit 26L, Red Cell Distribution Width 22.3H, Neutrophils (%) (Auto) 81H, Lymphocytes (%) (Auto) 7L, Neutrophils # (Auto) 9.0H, Lymphocytes # (Auto) 0.8L, Eosinophils # (Auto) 0.4H, Sodium Level 134L, Potassium Level 2.9L, Carbon Dioxide Level 15L, Blood Urea Nitrogen 49H, Creatinine 1.91H, Glucose Level 135H, Calcium Level 6.9L, Corrected Calcium 8.2L, Phosphorus Level 1.9L, Aspartate Amino Transf (AST/SGOT) 69H, Alkaline Phosphatase 339H, Total Protein 5.0L, Albumin 2.4L CT ABDOMEN/PELVIS WO PROCEDURE: CT abdomen and pelvis without contrast. TECHNIQUE: Multiple contiguous axial images were obtained through the abdomen and pelvis without the use of intravenous contrast. Auto Exposure Controls were utilized during the CT exam to meet ALARA standards for radiation dose reduction. INDICATION: Abdominal pain with nausea and vomiting. No prior studies are available for comparison. FINDINGS: Imaging through the lung bases demonstrates several subcentimeter noncalcified nodules, concerning for metastatic disease. There is some slightly nodular pleural thickening in the right base as well but no significant pleural fluid. The liver is heterogeneous. There are areas of low density within the liver which are concerning for hepatic metastatic disease. Largest is in the dome of the posterior right lobe measuring 2.7 cm in size. Gallbladder is not visualized and may be surgically absent. There is apparent mass involving the body of the pancreas measuring approximately 3.5 x 2.2 cm. No definite pancreatic or biliary duct dilatation is seen. Spleen is unremarkable. There is minimal perihepatic and perisplenic free fluid. No adrenal mass is identified. The kidneys are unremarkable. No calculi or hydronephrosis is seen. Aorta is calcified but non-aneurysmal. There is a filter within the inferior vena cava. Bowel loops do not appear to be dilated. There is some free fluid in the left pericolic gutter as well as within the pelvis. The bladder is decompressed by Khan catheter. There are multiple radiation seed implants within the prostate. There are some prominent lymph nodes in the central retroperitoneum left periaortic location. Largest solitary node measures 1.7 x 1.4 cm. No definite mesenteric lymphadenopathy is seen. There is some questionable mild stranding and perhaps minimal nodularity to the omentum in the right abdomen. The possibility of peritoneal carcinomatosis with omental caking cannot be entirely excluded. No definite pelvic lymphadenopathy is seen. Bony structures are nonacute. IMPRESSION: 1. Low-density lesions within the liver concerning for hepatic metastatic disease. There are also findings suspicious for a pancreatic mass. There is central retroperitoneal lymphadenopathy, ascites as well as omental nodularity and thickening. Features are concerning for metastatic disease with omental caking and perhaps peritoneal carcinomatosis. Tiny nodules within lung bases are noted, concerning for pulmonary metastatic disease. Impression & Plan Impression & Plan 1. 79 yr white man has prostate cancer with extensive disease. Poor performance status, ECOG score 3. Patient wants to go back to [facility] with hospice. I believe this is the best option for him. Dr Frausto to decide the discharge, hospice service and pain medications. Please call me if you need any help. Thank you for the consultation. RICK KERN MD Mar 02, 2020 16:45
--- NOTE | 2020-03-02 17:00 | NUR ---
DR VERAS CAME BY TO SEE PT. SHE SAID SHE WAS SIGNING OFF ON PT AND HE COULD GO HOME WHENEVER DR RODRIGUES IS READY. DR RODRIGUES CALLED AND SHE SAID SHE WOULD LIKE FOR HIM TO STAY TONIGHT. THIS RN ASKED IF WE COULD CHANGE HIS BED TO AIR MATTRESS D/T PT COMPLAINING THAT BED IS UNCOMFORTABLE. DR RODRIGUES SAID TO CHANGE BED TO AIR MATTRESS, INCREASE PAIN MEDS TO 10/325 Q4 PRN PAIN AND T0 ADD SENNA S ONE TAB BID. BED WAS CHANGED AND PT REPORTED THAT IT WAS MORE COMFORTABLE TO THIS RN.
--- NOTE | 2020-03-02 19:32 | NUR ---
DR RODRIGUES ORDERED TO STOP LOVENOX D/T PT HAVING BLOOD IN STOOL.
[2020-03-02] MEDS: SENNA W/DOCUSATE (SENOKOT S) TABLET PO SCH (20:00)
--- NOTE | 2020-03-02 22:23 | Progress Note ---
Subjective Subjective/Events-last exam He states that he is still having pain in his abdomen but it is better controlled this AM. Tolerating some fluids and soft foods.. Review of Systems Pulmonary: Dyspnea Cardiovascular: No: Chest Pain, Palpitations Gastrointestinal: Abdominal Pain Genitourinary: No Dysuria, No Frequency Neurological: Weakness Focused Exam Lactate Level 03/01/20 11:00: Lactic Acid Level 1.79 Objective Exam Last Set of Vital Signs Vital Signs Date Time Temp Pulse Resp B/P (MAP) Pulse Ox O2 Delivery O2 Flow Rate FiO2 03/02/20 19:14 36.4 89 20 128/84 (99) 98 Room Air Capillary Refill : Less Than 3 Seconds I&O Intake and Output 03/02/20 00:00 Intake Total 1460 ml Output Total 100 ml Balance 1360 ml Intake Oral 200 ml IV Total 1260 ml Output Urine Total 100 ml # Bowel Movements 1 Daily Weight Change No No General: Alert, Cooperative, Other (Hard of hearing) Lungs: Clear to Auscultation, Normal Air Movement Heart: Regular Rate, No Murmurs Abdomen: Soft, Other (diffuse ttp, no rebound or gaurding) Extremities: Other (1+ pitting edema bilaterally) Neuro: Normal Speech Results/Procedures Lab Laboratory Tests 03/02/20 03:00: White Blood Count 11.1H, Red Blood Count 3.19L, Hemoglobin 8.7L, Hematocrit 26L, Mean Corpuscular Volume 81, Mean Corpuscular Hemoglobin 27, Mean Corpuscular Hemoglobin Concent 34, Red Cell Distribution Width 22.3H, Platelet Count 301, Mean Platelet Volume 9.0, Neutrophils (%) (Auto) 81H, Lymphocytes (%) (Auto) 7L, Monocytes (%) (Auto) 9, Eosinophils (%) (Auto) 3, Basophils (%) (Auto) 0, Neutrophils # (Auto) 9.0H, Lymphocytes # (Auto) 0.8L, Monocytes # (Auto) 1.0, Eosinophils # (Auto) 0.4H, Basophils # (Auto) 0.0, Sodium Level 134L, Potassium Level 2.9L, Chloride Level 105, Carbon Dioxide Level 15L, Anion Gap 14, Blood Urea Nitrogen 49H, Creatinine 1.91H, Estimat Glomerular Filtration Rate 34, BUN/Creatinine Ratio 26, Glucose Level 135H, Mean Blood Glucose 166H, Hemoglobin A1c 7.4H, Calcium Level 6.9L, Corrected Calcium 8.2L, Phosphorus Level 1.9L, Magnesium Level 1.6, Total Bilirubin 0.7, Aspartate Amino Transf (AST/SGOT) 69H, Alanine Aminotransferase (ALT/SGPT) 35, Alkaline Phosphatase 339H, Total Protein 5.0L, Albumin 2.4L, Prostate Specific Antigen <0.05, Thyroid Stimulating Hormone (TSH) 0.86 Microbiology 03/01/20 Blood Culture - Preliminary, Resulted Probable Coag Negative Staph See Comments 03/01/20 Urine Culture - Final, Complete 3 or more isolates See Comments Assessment/Plan Assessment/Plan (1) Sepsis Status: Acute Assessment & Plan: - IVFs bolus completed, Rocephin, Cultures pending, HDS 03/02: Discussed Tumor burden and had Oncology consult, plan to d/c patient home on Hospice, will try and get pain under better control and plan for d/c in AM, will continue antibiotic to cover for UTI Qualifiers: Qualified Codes: A41.9 - Sepsis, unspecified organism; R65.20 - Severe sepsis without septic shock; N17.9 - Acute kidney failure, unspecified (2) UTI (urinary tract infection) Status: Acute Qualifiers: Qualified Codes: N30.00 - Acute cystitis without hematuria (3) Elevated brain natriuretic peptide (BNP) level Status: Acute Assessment & Plan: - Echo pending (4) Acute on chronic renal insufficiency Status: Acute Assessment & Plan: - IVFs continue to monitor, unsure of baseline (5) Elevated LFTs Status: Acute Assessment & Plan: - CT revealed that patient likely has metastatic cancer to the liver (6) Hypothyroidism Status: Chronic Assessment & Plan: - TSH pending, continue home meds Qualifiers: Qualified Codes: E03.9 - Hypothyroidism, unspecified (7) Non-insulin treated type 2 diabetes mellitus Status: Chronic Assessment & Plan: - Holding metformin, A1c pending (8) Essential (primary) hypertension Status: Chronic Assessment & Plan: - Continue home meds (9) Metastatic cancer to liver Status: Acute (10) Metastatic cancer to intra-abdominal lymph nodes Status: Acute (11) Hyponatremia Status: Acute (12) Hypokalemia Status: Acute Assessment & Plan: - Replace and repeat BMP (13) History of prostate cancer (14) DVT prophylaxis Status: Acute Assessment & Plan: SCDs Clinical Quality Measures DVT/VTE Risk/Contraindication: Risk Factor Score Per Nursin RFS Level Per Nursing on Admit: 4+=Very High VIJAYA RODRIGUES MD Mar 02, 2020 22:23
[2020-03-03] MEDS: NS IV 1000 ML 1,000 ML IV SCH ×3 (00:47→13:28)
[2020-03-03] MEDS: HYDROcodone/APAP 10 MG/325 MG (LORTAB) TAB PO PRN ×2 (00:54→06:46)
[2020-03-03 04:30] VITALS: BP 103/53
[2020-03-03] MEDS: SUCRALFATE 1 GM (CARAFATE) TAB PO SCH ×3 (06:46→17:03)
[2020-03-03] MEDS: ADVAIR HFA 115/21 MCG INHALER 8 GM IH SCH (06:55)
[2020-03-03 07:09] LABS: PHOSPHORUS 1.3 MG/DL (2.3-4.7)
[2020-03-03 07:11] LABS: MAGNESIUM 1.9 MG/DL (1.6-2.4)
[2020-03-03] MEDS: MAGNESIUM 1 GM/100 ML IVPB 100 ML IV SCH (07:30)
--- NOTE | 2020-03-03 07:37 | NUR ---
DR RODRIGUES NOTIFIED FOR MRSA BLOOD CULTURE
[2020-03-03] MEDS: POTASSIUM CL 10MEQ/50ML IVPB 50 ML IV SCH (07:54)
[2020-03-03] MEDS: KCL 20 MEQ TAB (K-DUR) PO SCH (07:54)
[2020-03-03 08:00] VITALS: BP 87/63
[2020-03-03] MEDS ORDERED: FAMOTIDINE 20 MG (PEPCID) TABLET PO SCH (08:00)
[2020-03-03] MEDS ORDERED: KCL 20 MEQ TAB (K-DUR) PO ONE (08:00)
[2020-03-03] MEDS: amLODIPine 5 MG (NORVASC) TAB PO SCH (08:55)
[2020-03-03] MEDS: SENNA W/DOCUSATE (SENOKOT S) TABLET PO SCH (08:55)
[2020-03-03] MEDS: ASPIRIN 81 MG CHEW (CHILDREN'S ASA) PO SCH (08:55)
[2020-03-03] MEDS: PANTOPRAZOLE 40 MG (PROTONIX) TAB PO SCH (08:55)
[2020-03-03] MEDS: LEVOTHYROXINE 50 MCG (LEVOTHROID) TAB PO SCH (08:55)
[2020-03-03] MEDS ORDERED: cefTRIAXone 1,000 MG/SWFI 10 ML IV PUSH IV SCH ×2 (09:00)
--- NOTE | 2020-03-03 10:55 | Discharge Summary ---
Diagnosis/Chief Complaint Date of Admission Mar 01, 2020 at 13:05 Date of Discharge 03/03/2020 Admission Diagnosis Admission Diagnosis See problem List Discharge Diagnosis See below Problems/Diagnosis: (1) Sepsis Assessment & Plan: - IVFs bolus completed, Rocephin, Cultures pending, HDS 03/02: Discussed Tumor burden and had Oncology consult, plan to d/c patient home on Hospice, will try and get pain under better control and plan for d/c in AM, will continue antibiotic to cover for UTI 03/03: HDL, D/c on antibiotics Qualifiers: Qualified Codes: A41.9 - Sepsis, unspecified organism; R65.20 - Severe sepsis without septic shock; N17.9 - Acute kidney failure, unspecified Status: Acute (2) UTI (urinary tract infection) Qualifiers: Qualified Codes: N30.00 - Acute cystitis without hematuria Status: Acute (3) Elevated brain natriuretic peptide (BNP) level Assessment & Plan: - Echo pending Status: Acute (4) Acute on chronic renal insufficiency Assessment & Plan: - IVFs continue to monitor, unsure of baseline 03/03: Cr at baseline at discharge Status: Acute (5) Elevated LFTs Assessment & Plan: - CT revealed that patient likely has metastatic cancer to the liver Status: Acute (6) Hypothyroidism Assessment & Plan: - TSH pending, continue home meds Qualifiers: Qualified Codes: E03.9 - Hypothyroidism, unspecified Status: Chronic (7) Non-insulin treated type 2 diabetes mellitus Assessment & Plan: - Holding metformin, A1c pending Status: Chronic (8) Essential (primary) hypertension Assessment & Plan: - Continue home meds Status: Chronic (9) Metastatic cancer to liver Assessment & Plan: 03/03: Patient seen by Oncology and they agree that Hospice care is appropriate, patient to d.c home on hospice today, pain better controlled Status: Acute (10) Metastatic cancer to intra-abdominal lymph nodes Status: Acute (11) Hyponatremia Status: Acute (12) Hypokalemia Assessment & Plan: - Replace and repeat BMP Status: Acute (13) History of prostate cancer (14) DVT prophylaxis Assessment & Plan: SCDs Status: Acute Chief Complaint/HPI Chief Complaint/HPI 79 yo M that presented to ER from [place] with worsening abdominal pain, N/V and diarrhea. Patient states that he has been having the pain for about 1 month now but it has been getting worse. He has not been able to eat normally and has been getting very nauseous with eating. States that he has lost about 20# in the month. Patient has personal h/o Prostate CA that has been in remission. States that his PSA has been undetectable but he doesn't remember the last time it was checked. He has been having more pain in his abdomen and denies any recent scans and has not seen an oncologist for a while. Discharge Summary-Simple/Stand Consultations Dr Hernandez: Hematology/Oncology Discharge Physical Examination Allergies: Coded Allergies: latex (Verified Allergy, Unknown, 09/01/07) Vitals & I&Os Vital Sign - Last 12Hours Date Time Temp Pulse Resp B/P (MAP) Pulse Ox O2 Delivery O2 Flow Rate FiO2 03/03/20 09:00 Room Air 03/03/20 08:00 36.0 83 20 87/63 (71) 97 Intake and Output 03/03/20 00:00 Intake Total 1090 ml Output Total 650 ml Balance 440 ml General Appearance: Alert, Oriented X3, No Acute Distress, Other (Very hard of hearing) HEENT: Mucous Memb Moist/[place] Respiratory: Clear to Auscultation, Normal Air Movement Cardiovascular: Regular Rate, No Murmurs Abdominal: Soft, Other (diffuse ttp) Extremities: Other (1+ pitting edema bilaterally) Skin: No Rashes, No Breakdown Neuro: Normal Speech Psych/Mental Status: Mental Status NL, Mood NL Hospital Course Was the Problem List Reviewed?: Yes See final discharge diagnosis. Discussion & Recommendations 79 yo M that presented to ER with worsening abdominal pain. Patient was found to UTI and CT scan reveal diffuse metastatic lesions in abdomen. Patient has a h/o prostate ca but has not seen a cancer doctor in years. Patient's pain medications were adjust and SW was consulted to discuss hospice. Patient and his son decided hospice was appropriate and he was discharge home on hospice today. Discharge Condition at discharge stable Instructions to patient/family Please see electronic discharge instructions given to patient. Discharge Medications Reviewed and agree with Discharge Medication list on patient's Discharge Instruction sheet Clinical Quality Measures DVT/VTE Risk/Contraindication: Risk Factor Score Per Nursin RFS Level Per Nursing on Admit: 4+=Very High Copy Copies To 1: SELF,VIJAYA DE LA O MD, MD Mar 03, 2020 10:55
[2020-03-03] MEDS ORDERED: CEFD300C3 PO (10:59)
[2020-03-03] MEDS ORDERED: SENN-20 PO (10:59)
--- NOTE | 2020-03-03 11:00 | Discharge Summary ---
Discharge [facility] Reconcile Patient Problems Problems Reviewed?: Yes Discharge Medications New, Converted or Re-Newed RX: Transmitted to Pharmacy New Medications: Cefdinir (Cefdinir) 300 Mg Capsule 300 MG PO BID, #20 CAP Sennosides/Docusate Sodium (Senna-Time S Tablet) 1 Each Tablet 1 EA PO BID, #60 TAB Continued Medications: Albuterol Sulfate (Ventolin Hfa) 18 Gm Hfa.aer.ad 2 PUFF INH Q4H PRN for SHORTNESS OF BREATH, INHALER Amlodipine Besylate (Amlodipine Besylate) 5 Mg Tablet 5 MG PO DAILY, TAB Aspirin (Aspirin) 81 Mg Tab.chew 81 MG PO DAILY, TAB Citalopram Hydrobromide (Citalopram HBr) 20 Mg Tablet 20 MG PO DAILY, TAB Famotidine (Famotidine) 20 Mg Tablet 20 MG PO 0800,1700, TAB Fluticasone/Vilanterol (Breo Ellipta 100-25 Mcg INH) 1 Each Blst.w.dev 1 PUFF IH DAILY Hydrocodone/Acetaminophen (Hydrocodone-Acetamin 5-325 mg) 1 Each Tablet 1 EA PO Q4H PRN for PAIN-MODERATE (5-7), TAB Levothyroxine Sodium (Levothyroxine Sodium) 50 Mcg Tablet 50 MCG PO DAILY, TAB Loperamide HCl (Imodium A-D) 2 Mg Capsule 2 MG PO Q2H PRN for DIARRHEA MDD 4 CAPS PER 24 HOURS, CAP Metformin HCl (Metformin HCl) 1,000 Mg Tablet 1000 MG PO BID, TAB Pantoprazole Sodium (Pantoprazole Sodium) 40 Mg Tablet.dr 40 MG PO DAILY, TAB Sucralfate (Sucralfate) 1 Gm Tablet 1 GM PO QIDACHS, TAB Discontinued Medications: Atorvastatin Calcium (Atorvastatin Calcium) 10 Mg Tablet 10 MG PO 1999, TAB Furosemide (Furosemide) 20 Mg Tablet 20 MG PO DAILY, TAB Iron Ag,Ps/C/Fa6/B12/Zn/SA/Sto (Niferex Tablet) 1 Each Tablet 1 EACH PO BID, TAB Patient Instructions Goal/Follow Up Appt: Patient d/c on Hospice with [facility] Activity & Diet Discharge Diet: No Restrictions Activity as Tolerated: Yes Copy Copies To 1: SELF,VIJAYA DE LA O MD, MD Mar 03, 2020 11:00
[2020-03-03 11:46] VITALS: BP 100/69
--- NOTE | 2020-03-03 12:00 | NUR ---
REPORT CALLED TO KEIKO AT [facility] IN [place]
--- NOTE | 2020-03-03 12:05 | NUR ---
FINAL DISCHARGE PLANNING: Patient will discharge today to his previous home at [facility], he and his son have chosen [facility] as their final decision. They want to stay with Dr. Petersen who is the Stock Selector for [facility]. I have arranged transportation through his newly discovered [facility] Medicaid plan. # [phone] [place] [id number]. CASH Faria updated on d/c plan and is ready for transport when they arrive. Orders faxed to [facility] and to [facility].
--- NOTE | 2020-03-03 14:30 | NUR ---
TOOK OVER CARE OF PT AND RECEIVED REPORT FROM MAKAYLA CASTREJON
[2020-03-03 16:00] VITALS: BP 128/85
== END 2020-03-03 18:34 | disposition hospice, home (50) | DRG 872 ==
LOC: ER FS 10:51 → EDUNIT# 10:51 → CSD 13:05 → 4TH 03-02 09:47
PROVIDERS: ADMIT Family Medicine; ATTEND Family Medicine
DX: A41.9 Sepsis, unspecified organism (principal); N39.0 Urinary tract infection, site not specified; I12.9 Hypertensive chronic kidney disease with stage 1 through stage 4 chronic kidney disease, or unspecified chronic kidney disease; N18.9 Chronic kidney disease, unspecified; C78.7 Secondary malignant neoplasm of liver and intrahepatic bile duct; C78.01 Secondary malignant neoplasm of right lung; C78.02 Secondary malignant neoplasm of left lung; C78.6 Secondary malignant neoplasm of retroperitoneum and peritoneum; C77.2 Secondary and unspecified malignant neoplasm of intra-abdominal lymph nodes; E87.1 Hypo-osmolality and hyponatremia; R18.8 Other ascites; E87.6 Hypokalemia; I95.9 Hypotension, unspecified; J44.9 Chronic obstructive pulmonary disease, unspecified; E11.9 Type 2 diabetes mellitus without complications; N28.9 Disorder of kidney and ureter, unspecified; E03.9 Hypothyroidism, unspecified; R63.4 Abnormal weight loss; D50.9 Iron deficiency anemia, unspecified; H91.90 Unspecified hearing loss, unspecified ear; E86.0 Dehydration; R11.2 Nausea with vomiting, unspecified; R19.7 Diarrhea, unspecified; Z79.4 Long term (current) use of insulin; Z85.46 Personal history of malignant neoplasm of prostate
CPT/HCPCS: 36415; 51702; 74176; 80048; 80053; 81000; 82274; 82962; 83036; 83605; 83690; 83735; 83880; 84100; 84132; 84153; 84443; 85007; 85025; 85027; 87040; 87077; 87088; 87186; 93306; 94640; 94760; 96372; 96374; 96375